=== PATIENT | female | born 1945 | race Asian ===

== ENCOUNTER 2021-11-27 16:05 | Inpatient (IN) | payer BC ==
[~2021-11-27] VITALS: Ht 157.5 cm; Wt 47.2 kg
[2021-11-27 16:14] VITALS: BP 134/70
--- NOTE | 2021-11-27 16:22 | NUR ---
PT BIB SNF C/O SOB PER SNF 77% ON RA. ON ARRIVAL PT 99% ON 8L MASK. PT BREATHING TACHYPNEIC WITH JVD, GCS 15. GENERALIZED EDEMA NOTED. PLACED ON BEDSIDE MONITOR. STACH ON MONITOR. IV NOTED TO LEFT FA #20GUAGE. PENDING ER MD SANABRIA.
--- NOTE | 2021-11-27 16:25 | NUR ---
DR KWAN AT BEDSIDE
[2021-11-27] MEDS ORDERED: ALBUTEROL SULFATE/IPRATROPIU 3 ML SOL IH ONE (16:30)
--- NOTE | 2021-11-27 17:21 | NUR ---
PT REFUSING BLOOD DRAW. PTS SISTER STATING "SHE HAD BLOOD DRAWN THIS MORNING, JUST USE THAT". DR KWAN MADE AWARE
[2021-11-27 17:48] LABS: BASOPHILS % (AUTO) 0.4 % (0.0-2.0); EOSINOPHILS # (AUTO) 0.1 K/uL (0-0.4); EOSINOPHILS % (AUTO) 1.7 % (0.0-4.0); HEMATOCRIT 25.5 % (36-48); HEMOGLOBIN 8.1 g/dL (12.0-16.0); LYMPHOCYTES # (AUTO) 0.5 K/uL (2.5-16.5); LYMPHOCYTES % (AUTO) 8.6 % (20.5-51.1); MEAN CORPUSCULAR HEMOGLOBIN 29 pg (27-31); MEAN CORPUSCULAR HGB CONC 32 g/dL (33-37); MEAN CORPUSCULAR VOLUME 90.4 fL (80-94); MONOCYTES # (AUTO) 0.4 K/uL (0.8-1.0); MONOCYTES % (AUTO) 7.3 % (1.7-9.3); NEUTROPHILS # (AUTO) 4.6 K/uL (1.8-7.7); PLATELET COUNT (AUTO) 286 K/uL (140-450); RED BLOOD CELL COUNT(AUTO) 2.83 MIL/uL (4.20-5.40); RED CELL DISTRIBUTION WIDTH 18.6 % (11.6-13.7); WHITE BLOOD COUNT (AUTO) 5.6 K/uL (4.8-10.8)
--- NOTE | 2021-11-27 17:52 | NUR ---
PT CONTINUING TO TAKE OFF FACE MASK. SISTER AT BEDSIDE TALKING WITH PT WITHOUT MASK ON. SPO2 DROPPED TO 79%. EDUCATED PATIENT AND SISTER TO KEEP MASK ON.
--- NOTE | 2021-11-27 17:55 | NUR ---
pt swabbed and walked to lab
[2021-11-27 18:07] LABS: ALBUMIN 2.5 g/dL (3.4-5.0); ANION GAP 2.1 (8-16); ASPARTATE AMINOTRANSFERASE 18 U/L (15-37); CHLORIDE 96 mmol/L (98-107); CREATININE 0.4 mg/dL (0.6-1.3); GLUCOSE 104 mg/dL (74-106); POTASSIUM 5.1 mmol/L (3.5-5.1); SODIUM SERUM 136 mmol/L (136-145); TOTAL BILIRUBIN 0.2 mg/dL (0.0-1.0); UREA NITROGEN, BLOOD 14 mg/dL (7-18)
[2021-11-27] MEDS ORDERED: FUROSEMIDE 40 MG/4 ML VIAL IVP ONE ×2 (20:05→22:34)
[2021-11-27] MEDS ORDERED: MORPHINE SULFATE 4 MG/ML SYR IVP ONE (20:10)
[2021-11-27] MEDS ORDERED: ASPIRIN 325 MG TAB PO ONE (20:30)
--- NOTE | 2021-11-27 20:30 | NUR ---
Perineal care provided, skin left clean and dry. skin intact. patient able to reposition self and assist with perineal care.
[2021-11-27] MEDS ORDERED: SYN.05 PO (20:51)
[2021-11-27] MEDS ORDERED: PANT40EC PO (20:51)
[2021-11-27] MEDS ORDERED: MULT-2171 PO (20:51)
--- NOTE | 2021-11-27 21:38 | NUR ---
Patient will be admitted to care of Dr. Del Valle. Admited to Telemetry. Will go to room 121A. Belongings list completed. Report to Lurdes AGUIRRE.
[2021-11-27] MEDS ORDERED: LOVENOX 1MG/KG Q12H SUBQ SCH (21:55)
[2021-11-27 22:00] VITALS: BP 107/58
[2021-11-27] MEDS ORDERED: MORPHINE SULFATE 2 MG/ML SYR IVP PRN (22:00)
--- NOTE | 2021-11-27 22:00 | NUR ---
PATIENT WAS TX FROM ER VIA GURNEY. TX TO BED WITH ASSIST OF 3 NURSES PT TOLERATED WELL. PT IS [place]. AAOX2. RESPIRATIONS ARE EQUAL AND UNLABORED ON 5L VIA NC SAT BETWEEN 92-94%. CRACKLES ON THIAGO BASES. SKIN IS WARM, DRY AND INTACT. IV ON L FA 20G SL. SEVERE JVD THIAGO. GEN EDEMA PITTING +3. CAP REFILL <3, PULSES INTACT. MRSA SWAB OBTAINED AND SENT TO LAB, VSS. ORIENTED PT TO ROOM, STAFF, VISITING HOURS AND CALL LIGHT. EDUCATED PT ON FLUID RESTRICTION PT YELLED FOR WATER. WATER GIVEN AND PT VERBALIZED UNDERSTANDING REGARDING FLUID RESTRICTION AND SIGN PLACED ABOVE BED. PT IS INCONTINENT OF B/B. BLE ELEVATED ON PILLOWS. CALL LIGHT IS WITHIN REACH. WILL CONTINUE TO MONITOR.
[2021-11-27] MEDS ORDERED: ENOXAPARIN 60 MG/0.6 ML SYR SUBQ SCH (23:00)
--- NOTE | 2021-11-27 23:13 | NUR ---
TALKED TO PT'S SISTER PAUL GARRISON FOR TELEPHONE CONSENT FOR CT ANGIO OF CHEST. PAUL REFUSED TO GIVE CONSENT STATES, "MY SISTER CANNOT ENDURE ANY PROCEDURE SHE WILL HAVE A STROKE OR ." EXPLAIN TO NURSE THE REASON AND PROS AND CONS OF CT ANGIO PER SISTER WANTS TO TALK TO MD BEFORE CONSENT.
[2021-11-27 23:37] LABS: CHOL/HDL RATIO 2.1 (1-4.5)
[2021-11-28] VITALS: BP 100/54
--- NOTE | 2021-11-28 | NUR ---
VSS. PT WAS CLEANED AND REPOSITION FOR COMFORT. ALL NEEDS MET. CALL LIGHT IS WITHIN REACH. WILL CONTINUE TO MONITOR.
--- NOTE | 2021-11-28 02:40 | NUR ---
ROUNDS MADE. PT RESTING IN BED WITH EYES CLOSED APPEARS TO BE ASLEEP. CHEST RISE AND FALL NOTED. CALL LIGHT IS WITHIN REACH.
[2021-11-28 04:00] VITALS: BP 101/55
[2021-11-28] MEDS: LEVOTHYROXINE 0.05 MG TAB PO SCH (05:32)
--- NOTE | 2021-11-28 05:32 | NUR ---
PATIENT WAS CLEANED AND REPOSITION. PURE WICK APPLIED. EASTON MEDICATIONS GIVEN. ALL NEEDS MET. WILL CONTINUE TO MONITOR.
[2021-11-28 06:01] LABS: BASOPHILS % (AUTO) 0.7 % (0.0-2.0); EOSINOPHILS # (AUTO) 0.1 K/uL (0-0.4); EOSINOPHILS % (AUTO) 2.3 % (0.0-4.0); HEMATOCRIT 25.6 % (36-48); HEMOGLOBIN 8.3 g/dL (12.0-16.0); LYMPHOCYTES # (AUTO) 0.5 K/uL (2.5-16.5); LYMPHOCYTES % (AUTO) 10.8 % (20.5-51.1); MEAN CORPUSCULAR HEMOGLOBIN 29 pg (27-31); MEAN CORPUSCULAR HGB CONC 32 g/dL (33-37); MEAN CORPUSCULAR VOLUME 89.4 fL (80-94); MONOCYTES # (AUTO) 0.4 K/uL (0.8-1.0); NEUTROPHILS # (AUTO) 3.5 K/uL (1.8-7.7); NEUTROPHILS % (AUTO) 77.2 % (42.2-75.2); PLATELET COUNT (AUTO) 291 K/uL (140-450); RED BLOOD CELL COUNT(AUTO) 2.87 MIL/uL (4.20-5.40); RED CELL DISTRIBUTION WIDTH 18.3 % (11.6-13.7); WHITE BLOOD COUNT (AUTO) 4.5 K/uL (4.8-10.8)
[2021-11-28 06:16] LABS: ALBUMIN 2.3 g/dL (3.4-5.0); ANION GAP 3.3 (8-16); ASPARTATE AMINOTRANSFERASE 14 U/L (15-37); CHLORIDE 94 mmol/L (98-107); CREATININE 0.3 mg/dL (0.6-1.3); GLUCOSE 90 mg/dL (74-106); MAGNESIUM 2.3 mg/dL (1.8-2.4); PHOSPHORUS 4.5 mg/dL (2.5-4.9); SODIUM SERUM 138 mmol/L (136-145); TOTAL BILIRUBIN 0.2 mg/dL (0.0-1.0); UREA NITROGEN, BLOOD 15 mg/dL (7-18)
[2021-11-28 06:29] LABS: CARBON DIOXIDE 44.7 mmol/L (21-32)
--- NOTE | 2021-11-28 07:06 | NUR ---
PATIENT HAS BEEN SCREENED AND CATEGORIZED MODERATE NUTRITION RISK. PATIENT WILL BE SEEN WITHIN 3-5 DAYS OF ADMISSION. 11/30/21-12/02/21 JULIA VIDAL MS, RDN
--- NOTE | 2021-11-28 07:16 | NUR ---
GAVE BEDSIDE REPORT TO DAY RN. PT ENDORSED IN STABLE CONDITION. WILL CONTINUE TO MONITOR.
--- NOTE | 2021-11-28 07:50 | NUR ---
PT WAS FOUND ON 5L/MIN NC, WAS SATING 90%. PT PLACED ON 6L/MIN NC, SATING 92%. WILL CONTINUE TO MONITOR.
[2021-11-28 08:00] VITALS: BP 112/61
--- NOTE | 2021-11-28 08:00 | NUR ---
OPENING NOTE PT IS VERY [place] IN BOTH EARS. PT ALSO SAYS SHE CAN'T NOT SEE. AAOX1 AND WITH MOMENTS OF CONFUSION. PUSHES THE CALL BUTTON REQUEST SOMETHING, THEN PUSHES THE CALL BUTTON AGAIN TO REQUEST THE SAME THING, . RESPIRATIONS ARE EQUAL AND UNLABORED ON 5L VIA NC SAT BETWEEN 92%. RESP INFORMED TO CHECK PT FOR POSSIBLE INCREASE IN OXYGEN. DEVICE. PT HAS CRACKLES IN BILAT LOWER BASES. SKIN IS WARM, DRY AND INTACT. IV ON L FA 20G SL. SEVERE JVD BILAT. GEN EDEMA PITTING +3. CAP REFILL <3, VSS. PT EDUCATED PT ON FLUID RESTRICTION PT YELLED FOR WATER. WATER GIVEN AND PT VERBALIZED UNDERSTANDING REGARDING FLUID RESTRICTION AND SIGN PLACED ABOVE BED. PT IS INCONTINENT OF B/B. BLE ELEVATED ON PILLOWS. CALL LIGHT IS WITHIN REACH. ALL SAFETY MEASURES IN PLACE.
[2021-11-28] MEDS: ASPIRIN 81 MG TAB.CHEW PO SCH (08:25)
[2021-11-28] MEDS: PANTOPRAZOLE 40 MG TABEC PO SCH (08:28)
[2021-11-28] MEDS: lisinopriL 5 MG TAB PO SCH (08:29)
[2021-11-28] MEDS: HYDROcodone/APAP 5/325 MG 1 TAB TAB PO PRN ×2 (08:30→23:45)
--- NOTE | 2021-11-28 08:30 | NUR ---
SISTER CAME TO VISIT SISTER GRABBED MY HAND I WAS GIVING MEDICATION AND TOLD ME NOT TO GIVE TO PT. 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
--- NOTE | 2021-11-28 08:45 | NUR ---
SISTER REQUEST PT NEEDS DOUBLE PORTION OF MEATS EXAMINED THAT IS A DOCTOR ORDER AND WE WILL HAVE TO TLAK TO HIM
[2021-11-28] MEDS ORDERED: METOPROLOL 25 MG TAB PO SCH (09:00)
[2021-11-28] MEDS ORDERED: FUROSEMIDE 40 MG/4 ML VIAL IVP SCH (09:00)
[2021-11-28] MEDS ORDERED: ATORVASTATIN 20 MG TAB PO SCH (09:00)
--- NOTE | 2021-11-28 09:00 | NUR ---
OXYGEN PT SAT'S REMAIN LOW 90'S AND PT IS A MOUTH BREATHER. WAS PLACED ON A SIMPLE MASK
--- NOTE | 2021-11-28 09:05 | NUR ---
SISTER CALLED NURSE PT STOMACH IS HURTING AND THE SISTER INSIST IT IS THE ULCER AND THAT THE PT IS BLEEDING INSIDE. EXPLAINED BLOOD WORK IS GOOD AND THE DR WILL EVAL HER WHEN HE COMES
--- NOTE | 2021-11-28 09:30 | NUR ---
SISTER STOP PT MEDICATIONS AT HOME SISTER SAY THE LASIX IS KILLING TH PT SO SHE HAS NOT BEEN TAKING IT EVERYDAY. SISTER SAY'S WHEN PT IS NOT ON THE LASIX SHE CAN DRIVE AND HEAR AND SEE PERFECTLY. EXPLINED AGAIN I MUST FOLLOW ALL DOCTORS ORDER AND GIVE THE MEDICATIONS THAT HAVE BEEN ORDERED
--- NOTE | 2021-11-28 10:09 | NUR ---
(11/28/21) RD INITIAL ASSESSMENT COMPLETED PLEASE REFER TO NUTRITION ASSESSMENT UNDER CARE ACTIVITY FOR ESTIMATED NUTRITIONAL NEEDS. RD RECOMMENDATIONS: 1. CONSIDER SWALLOW EVAL FOR APPROPRIATE DIET TEXTURES 2. CONSIDER CARDIAC DIET IN TEXTURES/CONSISTENCIES PER HEEL EDGE INKER MACHINE RECS. 3. CONSULT RDN PRN. 4. RD WILL F/U 2-3 DAYS; HIGH RISK. JULIA VIDAL, MS, RDN
[2021-11-28] MEDS: ENOXAPARIN 40 MG/0.4 ML SYR SUBQ SCH (11:00)
--- NOTE | 2021-11-28 11:30 | NUR ---
SISTER SPOKE WITH MD SISTER AGREED TO LET MD COMPLETE ALL THE TEST NEEDED AND THAT SHE WOULD FOLLOW THE MD DIRECTIONS MD EXPRESSED IMPORTANCE OF THE CT WITH CONTRAST SISTER AGREED, ONCE MD LEFT SISTER REFUSED AGAIN AND THEREFORE PT SAID NO TO TEST
--- NOTE | 2021-11-28 11:35 | NUR ---
PATIENT WAS FOUND WITH SIMPLE MASK OFF HER FACE, WAS SATING 86%. PATIENT STATED SHE WANTED TO EAT. PLACED PATIENT ON 10L OXYMIZER AND WAS SATING 96%. TITRATED PATIENT DOWN TO 9L 95% AND WAS COMFORTABLE WITH NO SIGNS OF DISTRESS. WILL CONTINUE TO MONITOR.
--- NOTE | 2021-11-28 11:40 | NUR ---
SISTER REMOVED MASK RT FOUND PT WITH SIMPLE MASK OFF HER FACE, WAS SATING 86%. PATIENT STATED SHE WANTED TO EAT. THIS NURSE ASKED SISTER WHY SHE TOOK OFF MASK WHEN PT IS HAVIGN A HARD TIME BREATHING SHE STATED "SHE WILL BREATH BETTER IF SHE IS NOT HUNGRY" RT PLACED PATIENT ON 10L OXYMIZER AND WAS SATING 96%. TITRATED PATIENT DOWN TO 9L 95% AND WAS COMFORTABLE WITH NO SIGNS OF DISTRESS.THIS NURSE SPOKE WITH PT TO EXPLAIN IMPORTANCE OF NOT REMOVING OXYGEN.
[2021-11-28 12:00] VITALS: BP 112/61
--- NOTE | 2021-11-28 13:00 | NUR ---
SISTER REFUSED TOLD PT NOT TO HAVE CT WITH CONTRAST IT;S NOT GOOD FOR HER SO PT REFUSED ALSO.
[2021-11-28 16:00] VITALS: BP 123/71
[2021-11-28] MEDS ORDERED: FUROSEMIDE 20 MG/2 ML VIAL IVP SCH (17:00)
[2021-11-28 20:00] VITALS: BP 92/52
--- NOTE | 2021-11-28 20:30 | NUR ---
PT FOUND ON 9LOXY SPO2 90% WILL CONTINUE TO MONITOR
--- NOTE | 2021-11-28 22:40 | NUR ---
PT STATED THEY WERE SOB SPO2 WAS 87% AND O2 WAS TITRATED TO 12L (OXY) WITH SPO2 92% 5 MIN POST TITRATION WILL CONTINUE TO MONITOR
[2021-11-29] VITALS: BP 120/60
[2021-11-29 04:00] VITALS: BP 109/55
--- NOTE | 2021-11-29 04:34 | NUR ---
PT SLEEPING COMFORTABLY ON 11L OXY W/ NO DISTRESS NOTED AT THIS TIME WILL CONTINUE TO MONITOR
[2021-11-29] MEDS: LEVOTHYROXINE 0.05 MG TAB PO SCH (06:04)
[2021-11-29 07:53] LABS: BASOPHILS % (AUTO) 0.6 % (0.0-2.0); EOSINOPHILS # (AUTO) 0.1 K/uL (0-0.4); EOSINOPHILS % (AUTO) 2.3 % (0.0-4.0); HEMATOCRIT 28.4 % (36-48); HEMOGLOBIN 9.2 g/dL (12.0-16.0); LYMPHOCYTES # (AUTO) 0.4 K/uL (2.5-16.5); LYMPHOCYTES % (AUTO) 8.6 % (20.5-51.1); MEAN CORPUSCULAR HEMOGLOBIN 29 pg (27-31); MEAN CORPUSCULAR HGB CONC 32 g/dL (33-37); MEAN CORPUSCULAR VOLUME 89.8 fL (80-94); MONOCYTES # (AUTO) 0.4 K/uL (0.8-1.0); MONOCYTES % (AUTO) 9.3 % (1.7-9.3); NEUTROPHILS # (AUTO) 3.8 K/uL (1.8-7.7); NEUTROPHILS % (AUTO) 79.2 % (42.2-75.2); PLATELET COUNT (AUTO) 311 K/uL (140-450); RED BLOOD CELL COUNT(AUTO) 3.16 MIL/uL (4.20-5.40); RED CELL DISTRIBUTION WIDTH 18.8 % (11.6-13.7); WHITE BLOOD COUNT (AUTO) 4.8 K/uL (4.8-10.8)
[2021-11-29 08:00] VITALS: BP 106/56
[2021-11-29 08:07] LABS: FOLIC ACID 17.8 ng/mL (>3.0)
[2021-11-29 08:30] LABS: CHLORIDE 91 mmol/L (98-107); CREATININE 0.4 mg/dL (0.6-1.3); GLUCOSE 90 mg/dL (74-106); POTASSIUM 3.4 mmol/L (3.5-5.1); SODIUM SERUM 135 mmol/L (136-145); UREA NITROGEN, BLOOD 15 mg/dL (7-18)
[2021-11-29 08:39] LABS: MAGNESIUM 2.5 mg/dL (1.8-2.4)
--- NOTE | 2021-11-29 08:43 | NUR ---
RECEIVE ENDORSEMENT FROM PM SHIFT NURSE THAT PATIENT IS ON 10 LITER OXYGEN VIA OXMIER, PIV L. FOREARM 20G SALINE LOCK. WILL CONTINUE TO MONITOR.
[2021-11-29 08:58] LABS: CARBON DIOXIDE 50.4 mmol/L (21-32)
[2021-11-29] MEDS ORDERED: acetaZOLAMIDE sodium 500 MG VIAL IVP ONE (09:40)
[2021-11-29] MEDS: PANTOPRAZOLE 40 MG TABEC PO SCH (09:48)
[2021-11-29] MEDS: ASPIRIN 81 MG TAB.CHEW PO SCH (09:51)
[2021-11-29] MEDS: lisinopriL 5 MG TAB PO SCH (09:51)
[2021-11-29] MEDS: FUROSEMIDE 20 MG/2 ML VIAL IVP SCH (09:53)
[2021-11-29] MEDS: ENOXAPARIN 40 MG/0.4 ML SYR SUBQ SCH (09:56)
[2021-11-29 12:00] VITALS: BP 108/61
[2021-11-29 16:00] VITALS: BP 128/73
[2021-11-29] MEDS: ALBUTEROL SULFATE/IPRATROPIU 3 ML SOL IH PRN (19:37)
--- NOTE | 2021-11-29 19:53 | NUR ---
GET THE REPORT FROM MORNING NURSE NITESH , PATIENT IS LYING ON BED, PATIENT IS ALERT ORIENTED X 1, CALL LIGHT IS WITHIN THE REACH, WILL CONTINUE TO MONITOR PATIENT
--- NOTE | 2021-11-29 19:57 | NUR ---
ENDORSE PT TO PM SHIFT NURSE THAT PATIENT IS ON 10 LITER OXYGEN VIA OXIMIER, PIV L. FOREARM & GLENN 20G SALINE LOCK
[2021-11-29 20:00] VITALS: BP 105/68
--- NOTE | 2021-11-29 20:30 | NUR ---
PATIENT IS LYING ON BED, VITAL SIGN IS WITHIN THE NORMAL RANGE, NO ANY COMPLAIN OF PAIN OR SHORTNESS OF BREATH AT THIS TIME ,CALL LIGHT IS WITHIN THE REACH,WILL CONTINUE TO MONITOR PATIENT.
[2021-11-30] VITALS: BP 112/61
--- NOTE | 2021-11-30 00:48 | NUR ---
VITAL SIGN IS WITHIN THE NORMAL RANGE, NO ANY COMPLAIN OF PAIN , CALL LIGHT IS WITHIN THE REACH, WILL CONTINUE TO MONITOR PATIENT
[2021-11-30 04:00] VITALS: BP 105/57
[2021-11-30] MEDS: LEVOTHYROXINE 0.05 MG TAB PO SCH (06:07)
--- NOTE | 2021-11-30 07:28 | NUR ---
RECEIVE ENDORSEMENT FROM PM SHIFT NURSE THAT PATIENT IS ON 10 LITER OXYGEN VIA OXYMIER, PIV L. FOREARM & GLENN 20G SALINE LOCK. WILL CONTINUE TO MONITOR
[2021-11-30 08:00] VITALS: BP 110/51
[2021-11-30] MEDS: ASPIRIN 81 MG TAB.CHEW PO SCH (09:11)
[2021-11-30] MEDS: ACETAMINOPHEN 325 MG TAB PO PRN (09:11)
[2021-11-30] MEDS: PANTOPRAZOLE 40 MG TABEC PO SCH (09:11)
[2021-11-30] MEDS: lisinopriL 5 MG TAB PO SCH (09:11)
[2021-11-30 09:57] LABS: ANION GAP 5.6 (8-16); CARBON DIOXIDE 36.9 mmol/L (21-32); CHLORIDE 95 mmol/L (98-107); CREATININE 0.5 mg/dL (0.6-1.3); GLUCOSE 183 mg/dL (74-106); POTASSIUM 3.5 mmol/L (3.5-5.1); SODIUM SERUM 134 mmol/L (136-145); UREA NITROGEN, BLOOD 14 mg/dL (7-18)
[2021-11-30 10:02] LABS: BASOPHILS % (AUTO) 0.5 % (0.0-2.0); EOSINOPHILS # (AUTO) 0.1 K/uL (0-0.4); EOSINOPHILS % (AUTO) 1.1 % (0.0-4.0); HEMATOCRIT 28.3 % (36-48); HEMOGLOBIN 9.1 g/dL (12.0-16.0); LYMPHOCYTES # (AUTO) 0.4 K/uL (2.5-16.5); LYMPHOCYTES % (AUTO) 7.7 % (20.5-51.1); MEAN CORPUSCULAR HEMOGLOBIN 29 pg (27-31); MEAN CORPUSCULAR HGB CONC 32 g/dL (33-37); MEAN CORPUSCULAR VOLUME 90.2 fL (80-94); MONOCYTES # (AUTO) 0.4 K/uL (0.8-1.0); MONOCYTES % (AUTO) 7.6 % (1.7-9.3); NEUTROPHILS # (AUTO) 3.9 K/uL (1.8-7.7); NEUTROPHILS % (AUTO) 83.1 % (42.2-75.2); PLATELET COUNT (AUTO) 294 K/uL (140-450); RED BLOOD CELL COUNT(AUTO) 3.14 MIL/uL (4.20-5.40); RED CELL DISTRIBUTION WIDTH 18.9 % (11.6-13.7); WHITE BLOOD COUNT (AUTO) 4.7 K/uL (4.8-10.8)
--- NOTE | 2021-11-30 10:58 | NUR ---
DC PLANNING: THE PATIENT CAME FROM THE [facility] S[facility] OF [facility], HAS BEEN THERE SINCE 11/25 PER GILMA AT THE FACILITY. CM SPOKE WITH THE PATIENTS SISTER PAUL AT BEDSIDE WHILE P.T. WORKED WITH THE PATIENT. THEY ATTEMPTED TO GET THE PATIENT TO STAND THREE TIMES, PATIENT WAS NOT ABLE TO TOLERATE. THE PATIENT WAS SENT TO [facility] FROM [facility]. SHE HAS A FWW AND O2 CONCENTRATOR AT HOME. HER SISTER PAUL STATES THAT HER WALKER IS OLD AND THAT IS THE REASON THAT PATIENT FALLS, NEW FWW HAS BEEN DENIED BY MEDICARE BECAUSE SHE DOESN'T QUALIFY THE WALKER IS LESS THAN FIVE YEARS OLD. HER SISTER PAUL IS ALSO ASKING FOR A PORTABLE O2 THAT THE PATIENT CAN CARRY IN A BACK PACK, CM ENDORSED THAT IT WILL BE SUBMITTED TO SEE IF MEDICARE WILL COVER THIS. PAUL STATES THAT SHE WANTS THE PATIENT HOME, HAS NO OTHER SUPPORT OR HELP TO CARE FOR THE PATIENT. CM POINTED OUT THAT THE PATIENT IS NOT ABLE TO STAND, PAUL STATES SHE WILL BE STRONG ENOUGH TO DO THIS WHEN SHE LEAVES THE HOSPITAL. PAUL WOULD ALSO LIKE A RAISED TOILET SEAT FOR THE HOME. ETHAN ENDORSED TO THE ATTENDING MD THAT THE SISTER IS STATING SHE IS TAKING THE PATIENT HOME IN SPITE OF P.T. AND CM DISCUSSING LACK OF SAFETY IF PATIENT GOES HOME. CM WILL FOLLOW. Addendum: 12/22/21 at 1743 by Renu Corbin RN DC PLANNING: PATIENT SISTER INSIST THAT SHE DOESN'T HAVE ANY OXYGEN TANK AT HOME. CALLED [facility] EXPLAIN THE SITUATION AND [facility] STATED WILL REVIEW THE REQUEST AND IF IT GETS APPROVE WILL DELIVER ONE AT THE HOSPITAL. DC PLAN TO GO HOME WITH OXYGEN AWAITING FOR THE PORTABLE OXYGEN. CM TO FOLLOW
--- NOTE | 2021-11-30 11:00 | NUR ---
DR. PADRON SAW PATIENT AND HER SISTER, PAUL ([phone]), EVALUATE PATIENT'S CURRENT CONDITION. ORDERED CBC, BMP, PT EVALUATION, AND MARINE MAMMAL TRAINER INTERVIEW FOR F/U. MARINE MAMMAL TRAINER, JEAN-CLAUDE, MET PATIENT AND HER SISTER; DISCUSSING HEALTHCARE SERVICE AFTER DISCHARGE. PATIENT CURRENT ON 8 LITER OXYGEN VIA OXYMIER, UNABLE SELF CARE, AND ELDER SISTER IS GOING TO BE CAREGIVER AFTER DISCHARGE HOME, WHICH WILL BE OBSTACLES. WILL F/U
[2021-11-30 12:00] VITALS: BP 97/49
[2021-11-30 16:00] VITALS: BP 110/50
--- NOTE | 2021-11-30 16:03 | NUR ---
11/30/21 RD FOLLOW UP COMPLETED PLEASE REFER TO NUTRITION ASSESSMENT UNDER CARE ACTIVITY FOR ESTIMATED NUTRITIONAL NEEDS. 1. RECOMMEND SOFT/MECHANICAL SOFT DIET WITH DOUBLE PROTEIN 2. RECOMMEND HEALTHSHAKES TID FOR NUTRITION SUPPORT 3. MONITOR GI SYMPTOMS AND BLOOD GLUCOSE LEVELS 4. RD WILL F/U 3-5 DAYS; MODERATE RISK. SAMUEL MODI RD
--- NOTE | 2021-11-30 19:37 | NUR ---
ENDORSE PT TO PM SHIFT NURSE THAT PATIENT IS ON 10 LITER OXYGEN VIA OXYMIER, PIV L. FOREARM & GLENN 20G SALINE LOCK
[2021-11-30 20:00] VITALS: BP 103/54
--- NOTE | 2021-11-30 20:00 | NUR ---
RECEIVE IN BED NO VOICED COMPLAINTS FAMILY IS AT BEDSIDE IS ON 10L OXYGEN VIA OXIMIZER REPOSITIONED IN BED
[2021-11-30] MEDS: HYDROcodone/APAP 5/325 MG 1 TAB TAB PO PRN (22:05)
[2021-12-01] VITALS (15 sets, daily range): BP systolic 80–176; BP diastolic 37–86
[2021-12-01] MEDS: LEVOTHYROXINE 0.05 MG TAB PO SCH (06:30)
--- NOTE | 2021-12-01 07:30 | NUR ---
RECEIVED REPORT FROM MANAGER OF DRILLING NURSE FOR CONTINUITY OF CARE, POC DISCUSSED. PT IS ASLEEP IN BED ON 10 L OXYMIZER, SATING AT 92%. PT HAS A LEFT UPPER ARM 18G, AND A RIGHT AC 18 G. BOTH SALINE LOCK, DRY AND INTACT. PT HAS A PUREE WICK, CONNECTED TO SUCTION. CLEAR MICHAEL TO YELLOW URINE, 300 CC. ON TELE MONITOR SHOWING SINUS RHYTHM. ALL SAFETY MEASURES IN PLACE, CALL LIGHT WITHIN REACH. WILL CONTINUE TO MONITOR.
[2021-12-01] MEDS ORDERED: CRUSHER, PILL MC ONE (08:50)
[2021-12-01] MEDS: ENOXAPARIN 40 MG/0.4 ML SYR SUBQ SCH (08:53)
[2021-12-01] MEDS: ASPIRIN 81 MG TAB.CHEW PO SCH (08:53)
[2021-12-01] MEDS: lisinopriL 5 MG TAB PO SCH ×2 (08:53→09:00)
[2021-12-01] MEDS: PANTOPRAZOLE 40 MG TABEC PO SCH (08:53)
[2021-12-01] MEDS: FUROSEMIDE 20 MG/2 ML VIAL IVP SCH ×3 (08:53→09:47)
--- NOTE | 2021-12-01 09:00 | NUR ---
PT IS ALERT AND ORIENTED X1, SISTER AT BEDSIDE. SITTING UP IN CHAIR AT BEDSIDE EATING BREAKFAST. EASTON LISINOPRIL REFUSED, EXPLAINED THE IMPORTANCE OF MAINTAINCE DOSAGE. PT SISTER REFUSED. IV LASIX ALSO REFUSED. EDUCATED ON IMPORTANCE OF REMOVING FLUIDS, VERBALIZED THEY UNDERSTOOD BUT DOES NOT WANT IT ADMINISTERED. IV PATENT AND INTACT. JUICE AND OTHER NEEDS PROVIDED. ALL QUESTIONS ANSWERED. ALL SAFETY MEASURES IN PLACE, CALL LIGHT WITHIN REACH. WILL CONTINUE TO MONITOR.
--- NOTE | 2021-12-01 10:00 | NUR ---
PT SISTER STATES SHE NOW WANTS ALL THE MEDICATION THAT WAS REFUSED EXCEPT THE LISINOPRIL. MEDICATION ADMINISTERED. PT ASSISTED BACK IN BED, FULL TRANSFER AND ASSISTANCE REQUIRED. EDUCATED ON INABILITY TO AMBULATE AND REQUIRING TO STAY IN BED. NEW PUREE WICK CONNECTED, NEW DIAPER PLACED. ALL SAFETY MEASURES IN PLACE, CALL LIGHT WITHIN REACH. WILL CONTINUE TO MONITOR.
--- NOTE | 2021-12-01 10:59 | NUR ---
PHYSICAL THERAPY CO-SIGN The Physical Therapy Progress Notes documented by Ticket Chopper Assembler have been reviewed. Reviewed/Co-Signed by: Lizzy Calles Documentation Done by: CHANELL STOCK PTA Addendum: 12/01/21 at 1059 by Lizzy Calles PT Amended: Links added.
--- NOTE | 2021-12-01 11:27 | NUR ---
PT CLEANED, BM NOTED. ALL SAFETY MEASURES IN PLACE, CALL LIGHT WITHIN REACH. WILL CONTINUE TO MONITOR.
[2021-12-01] MEDS: ONDANSETRON 4 MG/2 ML VIAL IVP PRN (12:12)
[2021-12-01] MEDS: ACETAMINOPHEN 325 MG TAB PO PRN (12:13)
--- NOTE | 2021-12-01 12:42 | NUR ---
PRN TYLENOL AND ZOFRAN ADMINISTERED PER MD ORDER FOR ELEVATED TEMP AND NAUSEA. PT ASSISTED TO CHAIR FOR LUNCH. ALL NEEDS ARE CURRENTLY BEING MET REPORTED BY . ALL SAFETY MEASURES IN PLACE, CALL LIGHT WITHIN REACH. WILL CONTINUE TO MONITOR.
--- NOTE | 2021-12-01 13:20 | NUR ---
PT HAS BEEN CLEANED UP, 1 EMESIS AND 1 LARGE BM NOTED. NEW PUREE WICK AND DIAPER PLACED. PT PLACED BACK INTO BED. SISTER AT BEDSIDE. ALL SAFETY MEASURES IN PLACE, CALL LIGHT WITHIN REACH. WILL CONTINUE TO MONITOR.
--- NOTE | 2021-12-01 13:45 | NUR ---
PT SISTER REPORTS PT HAVING EMESIS, NEW GOWN PROVIDED. NOTIFIED MD REGARDING CONTINUED EMESIS. PENDING NEW ORDERS.
[2021-12-01] MEDS: ALBUTEROL SULFATE/IPRATROPIU 3 ML SOL IH PRN (14:58)
--- NOTE | 2021-12-01 14:58 | NUR ---
STAT CHEST XRAY PLACED, TORB, CALLED RADIOLOGY TO INFORM THEM OF THE STAT ORDER, STATED THEY ARE IN RD BUT WILL BE RIGHT TO THE PTS ROOM.
--- NOTE | 2021-12-01 15:01 | NUR ---
CALLED DR. CARLIE BARFIELD AT [facility] [phone] TO REVIEW ABG SAMPLE REPORT JAZMINE/EXCHANGE TO PAGE FOREMENTIONED PATIENT INFORMATION AND CALL BACK NUMBER GIVEN
--- NOTE | 2021-12-01 15:03 | NUR ---
CALL BACK FROM DR. CARLIE BARFIELD REVIEWED ABG SAMPLE REPORT, PATIENT LOC, PATIENT EMESIS WITH POSSIBLE ASPIRATION; STAT CXR ORDERED TORBO: TRANSFER TO ICU STAT; INTUBATE BT ERMD
--- NOTE | 2021-12-01 15:08 | NUR ---
NEW ORDER FOR PT TO BE TRANSFERRED TO ICU STAT
--- NOTE | 2021-12-01 15:20 | NUR ---
PATIENT TRANSFERRED TO ICU-1 CONTINUED ON SUPPLEMENTAL OXYGEN VIA E-TANK AT 15 LPM VIA NON REBREATHER TOLERATED TRANSFER WELL WITHOUT ADVERSE REACTIONS NOTED SATURATION 92%-93% HR 87
--- NOTE | 2021-12-01 15:20 | NUR ---
PT WAS TRANSFERRED TO THE ICU WITH RT AT BEDSIDE. FULL REPORT GIVEN TO RENETTA. PT OUTPUT FROM [facility] WAS 800CC. ALL BELONGINGS WITH SISTER, SISTER TAKEN TO WAITING ROOM AND UPDATE PROVIDED.
--- NOTE | 2021-12-01 15:30 | NUR ---
RECEIVED REPORT FROM JAMIE. RECEIVED PT BREATHING LABORED WITH LOW O2 SAT. RIGHT NARE NOTED WITH SMALL AMOUNT OF BLOOD. PERIPHERAL IV 20 GAUGE ON RIGHT UPPER ARM INTACT AND PATENT. PERIPHERAL IV 20 GAUGE ON LEFT FOREARM INTACT AND PATENT. RT AT BEDSIDE. ER DOCTOR CALLED TO BEDSIDE.
--- NOTE | 2021-12-01 15:40 | NUR ---
ER DOCTOR ASSESSED PT. 1544: MEDS GIVEN MD ORDER 1545: PT INTUBATED. ET TUBE 24' AT LIP.
--- NOTE | 2021-12-01 15:43 | NUR ---
DR. SAMMY ARENAS AT BEDSIDE USING A GLIDESCOPE PATIENT SUCCESSFULLY INTUBATED WITH AN ENDOTRACHEAL TUBE #7.5 SECURED WITH AN ANCHOR FAST AT 24cm TEETH/GUM LINE VIA 10 ML SYRINGE CUFF INFLATED WITH 8ml AIR INTUBATION CONFIRMED; ETCO2 YELLOW; AUSCULTATION BY ERMD TO BILATERAL LUNG FIELD AND ABDOMINAL REGION; SATURATION ASCENDING FROM 78% TO 100%; CXR TO FOLLOW
--- NOTE | 2021-12-01 16:00 | NUR ---
NG-TUBE PLACED ON LEFT NARE. PT TOLERATED WELL.
--- NOTE | 2021-12-01 16:08 | NUR ---
CHEST XRAY DONE AT BEDSIDE.
--- NOTE | 2021-12-01 16:15 | NUR ---
INFORMED DR. PADRON REGARDING PT TRANSFER TO ICU AND INTUBATED. RECEIVED NEW ORDERS.
[2021-12-01] MEDS: PROPOFOL 1000 MG/100 ML PREMIX 100 ML IV PRN (17:14)
--- NOTE | 2021-12-01 17:20 | NUR ---
CALL BACK FROM DR. CARLIE BARFIELD REVIEWED INTUBATION PROCEDURE WITH DR. GODINEZ; INTUBATION CONFIRMATION CXR IMPRESSION 12/01/21 AT 1536 MST 121-A; VENTILATOR SETINGS; ABG SAMPLE REPORT TORBO: CHANGE MECHANICAL Vt TO 450ml; REYNALDO PELAEZ Q4; ABG TOMORROW 12/02/2021 AT 8 AM
--- NOTE | 2021-12-01 17:30 | NUR ---
RECEIVED PHONE CALL FROM RADIOLOGIST DOCTOR. PER MD, ET TUBE TOO LOW. IN RIGHT MAIN BRONCHUS AND NEEDS TO BE PULLED BACK 2-3CM. RT DEBORAH MADE AWARE.
--- NOTE | 2021-12-01 17:40 | NUR ---
RT AT BEDSIDE PULLING BACK ET TUBE. ET TUBE 22' AT LIP.
--- NOTE | 2021-12-01 19:15 | NUR ---
ENDORSED TO INGOT STRIPPER NURSE FOR CONTINUITY OF CARE.
--- NOTE | 2021-12-01 19:20 | NUR ---
RECEIVED BEDSIDE REPORT FROM DAY RN. PT IS AWAKE SHAKING AND NODDING HEAD TO SISTER. PT DE SAT AT 70-74% PAGED RT. ETT TO VENT. ETT AT 22 VENT SETTINGS AC/PRVC 100% 450 20 +5 SAT 72% RR 32 HR 114. WILL INCREASE PROPOFOL INFUSING AT 5MCG/KG/MIN AT THIS TIME ON RAC 20G. IV ON LAC 20 TKO. SKIN IS WARM, DRY AND INTACT. INCONTINENT TO B/B. PT WAS JUST INTUBATED TODAY ON THIAGO SOFT WRIST RESTRAINTS. NGT ON L NOSTRIL NOTED BRIGHT RED BLOOD CLEANED AND DRIED FROM L NOSTRIL. SAFETY MEASURES ARE IN PLACE.
--- NOTE | 2021-12-01 19:22 | NUR ---
PROPOFOL INCREASED TO 10MCG/KG/MIN WILL CONTINUE TO MONITOR.
--- NOTE | 2021-12-01 19:30 | NUR ---
PROPOFOL INCREASED TO 15 MCG/MIN. PT STILL FIGHTING VENT DESAT 73% HR 110-115. RT AT BEDSIDE. WILL CONTINUE TO MONITOR.
--- NOTE | 2021-12-01 20:36 | NUR ---
PT IRRITABLE AND FIGHTING VENT SPO2 WAS LOW 70s RN TITRATED PROP AND SPO2 SLOWLY CLIMBED TO 90% PT DESAT ONCE MORE PEEP WAS TITRATED TO 6 AND ONCE MORE TO 8 SPO2 CURRENTLY 96% AND STEADILY/SLOWLY CLIMBING WILL CONTINUE TO MONITOR AND TITRATE TOLERATED
--- NOTE | 2021-12-01 20:37 | NUR ---
PAGED DR PADRON FOR ORDERS FOR CENTRAL LINE AND BP SUPPORT BP IN 90S AND PROPOFOL NEEDS TO BE TITRATED UP D/T PT FIGHTING VENT SAT IN 70S RT AT BEDSIDE. NEW ORDERS FOR CENTRAL LINE AND LEVO STANDARD DOSE.
[2021-12-01] MEDS ORDERED: NOREPINEPHRINE 4 MG/4 ML VIAL IV ONE (20:43)
[2021-12-01] MEDS: NOREPINEPHRINE 4 MG in DEXTROSE 5% 250 ML IV PRN (21:00)
--- NOTE | 2021-12-01 21:00 | NUR ---
LEVO STARTED AT 5MCG/MIN BP 86/41. CALLED ER. ER MD WILL INSERT CENTRAL LINE IN A FEW MINUTES WILL OBTAIN CONSENT FROM SISTER PAUL GARRISON. PT STILL FIGHTING VENT RT AWARE PT SAT IN LOW 80S
--- NOTE | 2021-12-01 21:30 | NUR ---
BELLA MD AT BEDSIDE PLACING CENTRAL LINE ON R GROIN. HOUSE SUP AT BEDSIDE. WILL CONTINUE TO MONITOR.
--- NOTE | 2021-12-01 22:22 | NUR ---
PATIENT WAS CLEANED AND REPOSITION FOR COMFORT. PURE WICK APPLIED. PAGED RT D/T PT DE SAT 71%
[2021-12-01] MEDS: ALBUTEROL SULFATE/IPRATROPIU 3 ML SOL IH SCH (23:00)
[2021-12-02] VITALS (30 sets, daily range): BP systolic 80–183; BP diastolic 33–104
--- NOTE | 2021-12-02 00:10 | NUR ---
PATIENT REMAINS SAT LOW BETWEEN 78-85% ON VENT SETTINGS 100%, 20, 450, +8 NO CYANOSIS NOTED. SKIN IS COLD, DRY TO TOUCH. LIPS ARE PINK. PULSE OX CHANGED POSITION WILL CONTINUE TO MONITOR.
--- NOTE | 2021-12-02 00:52 | NUR ---
RT AT BEDSIDE DRAWING ABG. WILL CONTINUE TO MONITOR. PT IS IN GUARDED CONDITION.
[2021-12-02] MEDS: ACETAMINOPHEN 325 MG TAB PO PRN ×2 (01:05→14:20)
--- NOTE | 2021-12-02 01:06 | NUR ---
PATIENT WITH AXILLARY TEMP OF 100.6F. ADMINISTERED TYLENOL 650MG PER PROVIDER ORDERS. COOLING MEASURES INITIATED. WILL RECHECK TEMP AND CONTINUE TO MONITOR
[2021-12-02 01:44] LABS: APPEARANCE,URINE CLEAR (CLEAR); BILIRUBIN,URINE NEGATIVE (NEGATIVE); BLOOD, URINE NEGATIVE (NEGATIVE); COLOR,URINE YELLOW (YELLOW); LEUKOCYTE ESTERASE ,URINE 1+ (NEGATIVE); NITRITE, URINE POSITIVE (NEGATIVE); UGLUCOSE NEGATIVE (NEGATIVE)
--- NOTE | 2021-12-02 01:52 | NUR ---
APPLIED RESEARCH DIRECTOR DR BARAKAT FOR [facility] [phone] TO REPORT ABNORM ABG RESULTS PENDING CALL BACK ABG RESULTS ARE FOLLOWS .. PH 7.487 CO2 49.1 HCO3 36.3 BE 11.6 PO2 36 SO2 71.9 (W/ CORRELATING SPO2)
[2021-12-02] MEDS ORDERED: NOREPINEPHRINE 4 MG/4 ML VIAL IV ONE ×2 (01:59→05:08)
--- NOTE | 2021-12-02 02:10 | NUR ---
SPOKE W/ DR IBRAHIM AND REPORTED CRITICAL ABG RESULTS ALONG W/ VENT SETTINGS AND PT CONDITION - WANTS NO CHANGES AT THIS TIME
--- NOTE | 2021-12-02 02:15 | NUR ---
SPOKE WITH RT. PER RT PAGED MANAGER RESOURCE ABIDALI TO REPORT ABNORMAL ABG RESULTS AND NO NEW ORDERS. PT REMAINS SAT LOW BETWEEN 77-82% ABG RESULTS ARE FOLLOWS: PH 7.487 CO2 49.1 HCO3 36.3 BE 11.6 PO2 36 SO2 71.9 (W/ CORRELATING SPO2)
[2021-12-02] MEDS: NOREPINEPHRINE 4 MG in DEXTROSE 5% 250 ML IV PRN (02:22)
[2021-12-02 02:27] LABS: RBC,URINE 0-5 /HPF (0-5)
[2021-12-02] MEDS: ALBUTEROL SULFATE/IPRATROPIU 3 ML SOL IH SCH ×5 (03:00→23:11)
--- NOTE | 2021-12-02 04:30 | NUR ---
PATIENT CLEANED AND REPOSITION FOR COMFORT. ORAL CARE PROVIDED. PT REMAINS LOW SAT AT 84% VENT SETTINGS REMAIN THE SAME: 100% 450 20 +8. WILL CONTINUE TO MONITOR.
[2021-12-02 05:11] LABS: BASOPHILS % (AUTO) 0.2 % (0.0-2.0); EOSINOPHILS % (AUTO) 0.3 % (0.0-4.0); HEMATOCRIT 26.6 % (36-48); HEMOGLOBIN 8.5 g/dL (12.0-16.0); LYMPHOCYTES # (AUTO) 0.3 K/uL (2.5-16.5); LYMPHOCYTES % (AUTO) 9.6 % (20.5-51.1); MEAN CORPUSCULAR HEMOGLOBIN 29 pg (27-31); MEAN CORPUSCULAR HGB CONC 32 g/dL (33-37); MONOCYTES # (AUTO) 0.2 K/uL (0.8-1.0); MONOCYTES % (AUTO) 5.8 % (1.7-9.3); NEUTROPHILS % (AUTO) 84.1 % (42.2-75.2); PLATELET COUNT (AUTO) 260 K/uL (140-450); RED BLOOD CELL COUNT(AUTO) 2.96 MIL/uL (4.20-5.40); RED CELL DISTRIBUTION WIDTH 18.7 % (11.6-13.7); WHITE BLOOD COUNT (AUTO) 3.6 K/uL (4.8-10.8)
[2021-12-02] MEDS: NOREPINEPHRINE 8 MG in DEXTROSE 5% 250 ML IV PRN ×2 (05:20→13:37)
[2021-12-02 05:37] LABS: ALBUMIN 2.4 g/dL (3.4-5.0); ANION GAP 4.7 (8-16); ASPARTATE AMINOTRANSFERASE 26 U/L (15-37); CARBON DIOXIDE 37.7 mmol/L (21-32); CHLORIDE 96 mmol/L (98-107); CREATININE 0.6 mg/dL (0.6-1.3); GLUCOSE 115 mg/dL (74-106); POTASSIUM 4.4 mmol/L (3.5-5.1); SODIUM SERUM 134 mmol/L (136-145); TOTAL BILIRUBIN 0.2 mg/dL (0.0-1.0); UREA NITROGEN, BLOOD 20 mg/dL (7-18)
[2021-12-02] MEDS: LEVOTHYROXINE 0.05 MG TAB PO SCH (06:16)
--- NOTE | 2021-12-02 07:12 | NUR ---
ENDORSED CARE OF PATIENT TO DAY SHIFT (TIMOTHY VALLADARES). PATIENT IN GUARDED CONDITION (QU=999, OO=182/65, O2 SAT=92, R=20).
--- NOTE | 2021-12-02 07:12 | NUR ---
RECEIVED BEDSIDE REPORT FROM CHIKA CASPER RN FOR CONTINUITY OF CARE. PT SUPINE IN THE BED, SEDATED, RASS -2. ETT TO VENT, ACPRVC, FIO2 100%, VT 450, R 20, PEEP 8. WHEEZES/CRACKLES BL LUNG SOUNDS. SR W PACS ON BEDSIDE MONITOR. NGT TO L NARE, CLAMPED. BOWEL SOUNDS ACTIVE. INCONTINENT OF BLADDER, PURE WICK TO SUCTION. GENERALIZED WEAKNESS. R FEM CENTRAL LINE INFUSING LEVOPHED AT 21 MCG/MIN AND PROPOFOL AT 40 MCG/KG/MIN. SKIN INTACT, BLANCHABLE REDNESS TO SACRUM. SOFT RESTRAINTS TO BL WRIST, RENEW AT 1800. NO S/S INJURY. SAFETY PRECAUTIONS MET. STANDARD PRECAUTIONS IN PLACE. CALL LIGHT WITHIN REACH. INITIAL ASSESSMENT COMPLETE, WILL CONTINUE TO CLOSELY MONITOR.
--- NOTE | 2021-12-02 08:00 | NUR ---
F/C INSERTED PER DR JANELL LEE. IMMEDIATE RETURN OF 300 ML CLEAR YELLOW URINE.
--- NOTE | 2021-12-02 08:15 | NUR ---
PT SISTER AT BEDSIDE. UPDATED REGARDING PT CONDITION, ALL QUESTIONS ANSWERED AT THIS TIME.
--- NOTE | 2021-12-02 08:25 | NUR ---
SEEN AND EXAMINED BY DR MACIEL
[2021-12-02] MEDS: ENOXAPARIN 40 MG/0.4 ML SYR SUBQ SCH (09:06)
[2021-12-02] MEDS: lisinopriL 5 MG TAB PO SCH (09:06)
[2021-12-02] MEDS: PANTOPRAZOLE 40 MG INJ VIAL IVP SCH (09:06)
[2021-12-02] MEDS: FUROSEMIDE 20 MG/2 ML VIAL IVP SCH (09:07)
[2021-12-02] MEDS: ASPIRIN 81 MG TAB.CHEW PO SCH (09:07)
[2021-12-02] MEDS: PROPOFOL 1000 MG/100 ML PREMIX 100 ML IV PRN ×3 (10:15→20:32)
--- NOTE | 2021-12-02 10:15 | NUR ---
TREY WOUND NURSE AT BEDSIDE. PT CLEANED AND REPOSITIONED. DRESSING APPLIED TO SACRUM FOR PROTECTION.
--- NOTE | 2021-12-02 10:20 | NUR ---
WOUND CARE NOTE: SKIN ASSESSMENT DONE WITH PRIMARY RN. PT. ADMITTED WITH SKIN ALTERATION. 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 FOAM DRESSING IN PLACE, AREA OFFLOADING. POC DISCUSSED WITH PRIMARY RN.. PT. DESAT TO 86 DURING TURNING AND REPOSITION, RT AT BED SIDE ASSESS PT. PT. NO S/S OF DISTRESS.PT. CHANGE OF CONDITION WITH LOW LANCE SCALE AT VERY HIGH RISK, CONTINUE TO FOLLOW PRESSURE INJURY PREVENTION INTERVENTIONS. RECOMMENDATIONS -APPLY HYDRAGUARD TO PERINEUM BID -SACRALCOCCYX APPLY FOAM DRESSING QD AND PRN IF SOILING, OFFLOADING AREA -POSITIONING: TURN AND REPOSITION PATIENT Q 2H OR SOONER USE PILLOWS TO KEEP BONY PROMINENCES FROM DIRECT CONTACT WITH SURFACES USE REPOSITIONING WEDGES TO PROVIDE 30-DEGREE ANGLE FOR SIDE LYING POSITIONS OFFLOADING OR FOAM DRESSING TO ALL TUBING TO PREVENT MEDICAL DEVICES RELATED PRESSURE INJURY -RE-EVALUATING AND MANAGING INCONTINENCE MONITOR SKIN CONDITION DURING POSITION CHANGE DO NOT MASSAGE REDNESS, BONY PROMINENCES FREQUENT GINGER-CARE AND PROVIDE BARRIER CREAMS PRN IF SOILING MOISTURE CONTROL BY OFFER BED HUBBARD/URINAL /ABSORBENT PAD TO WICK AND HOLD MOISTURE KEEP SKIN DRY AND PROTECT FROM FRICTION -MANAGE FRICTION/SHEAR/MOBILITY KEEP HOB AT THE LOWEST LEVEL OF ELEVATION NO MORE THAN 30 DEGREE UNLESS OTHERWISE CONTRAINDICATED USE LIFT SHEET OR TRANSFER DEVICE TO MOVE PATIENT AND PREVENT LATERAL SHEER. PROTECT HEELS, ELBOWS BONY PROMINENCES WITH SKIN BERRIES OR FOAM DRESSING IF EXPOSED TO FRICTION OFFLOAD BILATERAL HEELS BY PLACING PILLOWS UNDER CALVES AT ALL TIMES, UNLESS OTHERWISE CONTRAINDICATED -PRESSURE REDISTRIBUTION SURFACE THERAPY AQUILINO ISOFLEX MATTRESS -NUTRITION: PLEASE FOLLOW RD RECOMMENDATIONS AND OFFER NUTRITION SUPPLEMENTS IF ORDERED. Addendum: 12/02/21 at 1147 by Danette Richards RN (Grace) SISTER AT BED SIDE EM ON SKIN WITH COMORBIDITIES EXPLAINED. SHE ALSO AWARE PRIOR ADMISSION SACRALCOCCYX WAS RED. POC DISCUSSED VERBALIZES UNDERSTANDING.
--- NOTE | 2021-12-02 10:26 | NUR ---
PATIENT P.T. ON HOLD UNTIL MEDICALLY CLEARED AND STABLE. NEW ORDERS NEEDED WHEN PATIENT IS APPROPRIATE; RADIATION THERAPIST AWARE
--- NOTE | 2021-12-02 11:49 | NUR ---
12/02/21 RD FOLLOW UP COMPLETED PLEASE REFER TO NUTRITION ASSESSMENT UNDER CARE ACTIVITY FOR ESTIMATED NUTRITIONAL NEEDS. 1. RECOMMENDED JEVITY 1.2 WITH A GOAL RATE OF 50 ML/HR WITH MARK BID -FWF: 200 ML Q6H OR PER MD -START AT 10 ML/HR AND INCREASE BY 10 ML Q4H TOLERATED -WITH MARK BID, PT WILL RECEIVED 100% OF ESTIMATED NUTRITIONAL NEEDS 2. MONITOR NUTRITION-RELATED LAB VALUES 3. RD TO FOLLOW-UP 2-3 DAYS, HIGH RISK SAMUEL MODI RD
--- NOTE | 2021-12-02 12:38 | NUR ---
SEEN AND EXAMINED BY DR BARFIELD.
--- NOTE | 2021-12-02 13:00 | NUR ---
SEEN AND EXAMINED BY DR CERRATO.
[2021-12-02] MEDS: FOAM DRESSING TP SCH (13:24)
[2021-12-02] MEDS: HYDRAGUARD CREAM TP SCH (13:24)
[2021-12-02] MEDS: PIPERACILLIN/TAZOBACTAM 3.375 GM in DEXTROSE 5% 50 ML IV SCH ×2 (13:25→20:34)
--- NOTE | 2021-12-02 13:30 | NUR ---
US AT BEDSIDE
--- NOTE | 2021-12-02 16:45 | NUR ---
DANII PICC NURSE AT BEDSIDE.
--- NOTE | 2021-12-02 17:02 | NUR ---
XRAY AT BEDSIDE
--- NOTE | 2021-12-02 19:17 | NUR ---
ENDORSED BEDSIDE REPORT TO JUSTINA CASPER RN FOR CONTINUITY OF CARE. NO S/S ACUTE DISTRESS AT THIS TIME.
--- NOTE | 2021-12-02 19:45 | NUR ---
MIKHAIL CALLED AND REPORTED BLOOD IN THE TUBE FEEDING RESIDUAL. NO ORDERS GIVEN. AT [address] DR[address] MACIEL WAS CALLED AGAIN FOR ANOTHER PT,; I SPOKE WITH HER AND INFORMED HER OF THE WILMER RED BLOOD IN THE TUBE FEEDING RESIDUAL AND SHE ORDERED A KUB. THE KUB WAS DONE NOW WAITING ON THE RESULTS.
[2021-12-03] VITALS (29 sets, daily range): BP systolic 79–145; BP diastolic 50–71
[2021-12-03] MEDS: HYDRAGUARD CREAM TP SCH ×2 (02:14→13:06)
[2021-12-03] MEDS: PROPOFOL 1000 MG/100 ML PREMIX 100 ML IV PRN ×3 (02:26→18:49)
[2021-12-03] MEDS: ALBUTEROL SULFATE/IPRATROPIU 3 ML SOL IH SCH ×6 (04:14→23:57)
[2021-12-03] MEDS: PIPERACILLIN/TAZOBACTAM 3.375 GM in DEXTROSE 5% 50 ML IV SCH ×3 (04:35→21:01)
[2021-12-03 05:33] LABS: BASOPHILS % (AUTO) 0.3 % (0.0-2.0); EOSINOPHILS % (AUTO) 0.3 % (0.0-4.0); HEMOGLOBIN 8.1 g/dL (12.0-16.0); LYMPHOCYTES # (AUTO) 0.4 K/uL (2.5-16.5); LYMPHOCYTES % (AUTO) 3.3 % (20.5-51.1); MEAN CORPUSCULAR HEMOGLOBIN 29 pg (27-31); MEAN CORPUSCULAR HGB CONC 32 g/dL (33-37); MEAN CORPUSCULAR VOLUME 88.5 fL (80-94); MONOCYTES # (AUTO) 0.4 K/uL (0.8-1.0); MONOCYTES % (AUTO) 3.3 % (1.7-9.3); NEUTROPHILS # (AUTO) 10.1 K/uL (1.8-7.7); NEUTROPHILS % (AUTO) 92.8 % (42.2-75.2); PLATELET COUNT (AUTO) 268 K/uL (140-450); RED BLOOD CELL COUNT(AUTO) 2.83 MIL/uL (4.20-5.40); RED CELL DISTRIBUTION WIDTH 18.2 % (11.6-13.7); WHITE BLOOD COUNT (AUTO) 10.9 K/uL (4.8-10.8)
[2021-12-03] MEDS: LEVOTHYROXINE 0.05 MG TAB PO SCH (06:02)
[2021-12-03 06:03] LABS: ALBUMIN 2.1 g/dL (3.4-5.0); ANION GAP 7.3 (8-16); ASPARTATE AMINOTRANSFERASE 31 U/L (15-37); CARBON DIOXIDE 37.3 mmol/L (21-32); CHLORIDE 96 mmol/L (98-107); CREATININE 0.5 mg/dL (0.6-1.3); GLUCOSE 115 mg/dL (74-106); MAGNESIUM 2.1 mg/dL (1.8-2.4); PHOSPHORUS 3.7 mg/dL (2.5-4.9); POTASSIUM 3.6 mmol/L (3.5-5.1); SODIUM SERUM 137 mmol/L (136-145); TOTAL BILIRUBIN 0.3 mg/dL (0.0-1.0); UREA NITROGEN, BLOOD 31 mg/dL (7-18)
--- NOTE | 2021-12-03 07:05 | NUR ---
RECEIVED BEDSIDE REPORT FROM JUSTINA CASPER RN FOR CONTINUITY OF CARE. PT SUPINE IN THE BED, SEDATED, RASS -2. ETT TO VENT, ACPRVC, FIO2 90%, VT 450, R 20, PEEP 8. WHEEZES/CRACKLES BL LUNG SOUNDS. SR W PACS ON BEDSIDE MONITOR. NGT TO L NARE, INFUSING JEVITY AT 10 ML/HR W 200 ML Q6H WATER FLUSH. BOWEL SOUNDS ACTIVE. F/C TO GRAVITY DRAINING CLEAR YELLOW URINE. GENERALIZED WEAKNESS. GLENN PICC INFUSING LEVOPHED AT 4 MCG/MIN AND PROPOFOL AT 40 MCG/KG/MIN. SKIN INTACT, BLANCHABLE REDNESS TO SACRUM. SOFT RESTRAINTS TO BL WRIST, RENEW AT 1800. NO S/S INJURY. SAFETY PRECAUTIONS MET. STANDARD PRECAUTIONS IN PLACE. CALL LIGHT WITHIN REACH. INITIAL ASSESSMENT COMPLETE, WILL CONTINUE TO CLOSELY MONITOR.
[2021-12-03] MEDS: ASPIRIN 81 MG TAB.CHEW PO SCH (08:09)
[2021-12-03] MEDS: PANTOPRAZOLE 40 MG INJ VIAL IVP SCH (08:09)
[2021-12-03] MEDS: ENOXAPARIN 40 MG/0.4 ML SYR SUBQ SCH (08:09)
--- NOTE | 2021-12-03 09:00 | NUR ---
PT SISTER, PAUL, AT BEDSIDE.
--- NOTE | 2021-12-03 09:10 | NUR ---
SEEN AND EXAMINED BY DR MACIEL
--- NOTE | 2021-12-03 11:00 | NUR ---
RESPIRATIONS EVEN AND UNLABORED. NO S/S ACUTE DISTRESS. VSS. WILL CONTINUE TO CLOSELY MONITOR.
[2021-12-03] MEDS: NOREPINEPHRINE 8 MG in DEXTROSE 5% 250 ML IV PRN (11:15)
--- NOTE | 2021-12-03 12:55 | NUR ---
SEEN AND EXAMINED BY DR CERRATO.
[2021-12-03] MEDS: FOAM DRESSING TP SCH (13:06)
--- NOTE | 2021-12-03 14:00 | NUR ---
RASS -2. VSS. NO S/S ACUTE DISCOMFORT OR RESPIRATORY DISTRESS. WILL CONTINUE TO MONITOR.
--- NOTE | 2021-12-03 15:30 | NUR ---
SEEN AND EXAMINED BY DR BARFIELD. ORDERS RECEIVED. SPOKE WITH PT SISTER, PAUL, AT BEDSIDE. UPDATED REGARDING PT CONDITION.
--- NOTE | 2021-12-03 15:50 | NUR ---
PT CLEANED AND REPOSITIONED. NO STOOL NOTED. SACRAL DRESSING CHANGED. SKIN INTACT. TOLERATED MOVEMENT WELL. EMPTIED 1000 ML CLEAR YELLOW URINE FROM F/C. WILL CONTINUE TO CLOSELY MONITOR.
--- NOTE | 2021-12-03 19:26 | NUR ---
ENDORSED BEDSIDE REPORT TO [facility] RN FOR CONTINUITY OF CARE. NO ACUTE DISTRESS AT THIS TIME.
--- NOTE | 2021-12-03 20:46 | NUR ---
PATIENT SEDATED ON PROPOFOL AT 30 MCG 10.2 ML.ALSO HAS LEVOPHED AT 1.5MCG 2.18 ML HAS ET-TUBE AC/PRVC RATE 20, TV450, FI02 75% PEEP 6 SAT 100% LUNG DIMINISH. SINUS ON MONITOR HAS N.G.T IN LEFT NARE RECEIVING JEVITY AT 40 HOUR GOAL 50 HOUR. HAS WATER FLUSH 200CC EVERY SIX HOURS. TEMP 98.7 HAS PICC LINE UPPER RIGHT ARM ALL LINES PATENT.F/C DRAINING YELLOW URINE.
[2021-12-04] VITALS (29 sets, daily range): BP systolic 98–157; BP diastolic 52–84
[2021-12-04] MEDS: HYDRAGUARD CREAM TP SCH ×2 (01:10→13:19)
[2021-12-04] MEDS: PROPOFOL 1000 MG/100 ML PREMIX 100 ML IV PRN ×3 (01:24→18:59)
[2021-12-04] MEDS: ALBUTEROL SULFATE/IPRATROPIU 3 ML SOL IH SCH ×6 (05:00→23:00)
[2021-12-04] MEDS: PIPERACILLIN/TAZOBACTAM 3.375 GM in DEXTROSE 5% 50 ML IV SCH ×3 (05:11→20:36)
[2021-12-04 05:38] LABS: BASOPHILS # (AUTO) 0.1 K/uL (0.00-0.22); BASOPHILS % (AUTO) 0.6 % (0.0-2.0); EOSINOPHILS # (AUTO) 0.1 K/uL (0-0.4); EOSINOPHILS % (AUTO) 0.8 % (0.0-4.0); HEMATOCRIT 22.6 % (36-48); HEMOGLOBIN 7.5 g/dL (12.0-16.0); LYMPHOCYTES # (AUTO) 0.3 K/uL (2.5-16.5); LYMPHOCYTES % (AUTO) 2.8 % (20.5-51.1); MEAN CORPUSCULAR HEMOGLOBIN 29 pg (27-31); MEAN CORPUSCULAR HGB CONC 33 g/dL (33-37); MEAN CORPUSCULAR VOLUME 86.9 fL (80-94); MONOCYTES # (AUTO) 0.2 K/uL (0.8-1.0); MONOCYTES % (AUTO) 2.2 % (1.7-9.3); NEUTROPHILS # (AUTO) 9.4 K/uL (1.8-7.7); NEUTROPHILS % (AUTO) 93.6 % (42.2-75.2); PLATELET COUNT (AUTO) 254 K/uL (140-450); RED CELL DISTRIBUTION WIDTH 18.5 % (11.6-13.7); WHITE BLOOD COUNT (AUTO) 10.1 K/uL (4.8-10.8)
[2021-12-04 06:05] LABS: ANION GAP 9.4 (8-16); ASPARTATE AMINOTRANSFERASE 22 U/L (15-37); CARBON DIOXIDE 35.1 mmol/L (21-32); CHLORIDE 98 mmol/L (98-107); CREATININE 0.4 mg/dL (0.6-1.3); GLUCOSE 109 mg/dL (74-106); MAGNESIUM 2.3 mg/dL (1.8-2.4); PHOSPHORUS 3.4 mg/dL (2.5-4.9); SODIUM SERUM 140 mmol/L (136-145); TOTAL BILIRUBIN 0.3 mg/dL (0.0-1.0); UREA NITROGEN, BLOOD 21 mg/dL (7-18)
[2021-12-04 06:07] LABS: POTASSIUM 2.5 mmol/L (3.5-5.1)
[2021-12-04] MEDS ORDERED: POTASSIUM CHLORIDE 20% 40 MEQ/15 ML UDC NG SCH (06:15)
[2021-12-04] MEDS: LEVOTHYROXINE 0.05 MG TAB PO SCH (06:38)
--- NOTE | 2021-12-04 06:54 | NUR ---
LAB CALLED WITH K2.5 CLLED NOT OUTDOOR ADVENTURE INSTRUCTOR CALLED TOLD K 2.5 ORDER GIVEN TO GIVE 60 RANDAL OF KCL VIA N.T.G. X1. GIVEN 0637.
--- NOTE | 2021-12-04 07:10 | NUR ---
SBAR report received from Deborah AGUIRRE, all cares assumed. Pt sedated with diprivan 30mcg. Intubated, vent settings: AC/PRVC 20, 450, 65%, 6. Bed in low, locked position.
--- NOTE | 2021-12-04 08:30 | NUR ---
Sister of pt at bedside, update given, all questions answered at this time.
[2021-12-04] MEDS ORDERED: KCL 20 MEQ/WATER INJ PREMIX 100 ML IV SCH (09:00)
[2021-12-04] MEDS: ASPIRIN 81 MG TAB.CHEW PO SCH (09:18)
[2021-12-04] MEDS: PANTOPRAZOLE 40 MG INJ VIAL IVP SCH (09:19)
[2021-12-04] MEDS: ENOXAPARIN 40 MG/0.4 ML SYR SUBQ SCH (09:27)
--- NOTE | 2021-12-04 09:30 | NUR ---
Dr. France roundopal at bedside, update given, no new orders at this time.
--- NOTE | 2021-12-04 09:40 | NUR ---
Dr. Mathew rounding at bedside, update given, no new orders at this time.
--- NOTE | 2021-12-04 13:11 | NUR ---
12/04/21 RD FOLLOW UP COMPLETED PLEASE REFER TO NUTRITION ASSESSMENT UNDER CARE ACTIVITY FOR ESTIMATED NUTRITIONAL NEEDS. 1. CONTINUE JEVITY 1.2 @ 50 ML/HR WITH MARK BID -FWF: 200 ML Q6H OR PER MD -WITH MARK BID, PT WILL RECEIVED 100% OF ESTIMATED NUTRITIONAL NEEDS 2. MONITOR NUTRITION-RELATED LAB VALUES 3. RD TO FOLLOW-UP 2-3 DAYS, HIGH RISK SAMUEL MODI RD
[2021-12-04] MEDS: FOAM DRESSING TP SCH (13:19)
--- NOTE | 2021-12-04 14:00 | NUR ---
Bed bath given, wound care complete, new dressing applied to sacral wound. Linens and gown changed. No signs of distress noted at this time, VSS.
--- NOTE | 2021-12-04 17:30 | NUR ---
Dr. Miranda rounding at bedside, speaking with family, no new orders at this time.
--- NOTE | 2021-12-04 19:00 | NUR ---
RECEIVED REPORT FROM MAMADOU AGUIRRE, PT IN STATED CONDITIO. SHE REMAINS IN SOFT THIAGO RESTRAINTS, PROPOFOL AN LEVOPHED. HER MAP IS CURRENTLY 98. WILL CONTINUE TO MONITOR PT CLOSELY.
[2021-12-04] MEDS: NOREPINEPHRINE 8 MG in DEXTROSE 5% 250 ML IV PRN (19:01)
--- NOTE | 2021-12-04 19:01 | NUR ---
SBAR report given to Madi AGUIRRE, all cares endorsed.
[2021-12-05] VITALS (26 sets, daily range): BP systolic 88–139; BP diastolic 43–77
[2021-12-05] MEDS: PROPOFOL 1000 MG/100 ML PREMIX 100 ML IV PRN ×4 (00:34→21:29)
[2021-12-05] MEDS: HYDRAGUARD CREAM TP SCH ×2 (02:11→12:26)
[2021-12-05] MEDS: ALBUTEROL SULFATE/IPRATROPIU 3 ML SOL IH SCH ×6 (03:45→23:00)
[2021-12-05 04:14] LABS: BASOPHILS % (AUTO) 0.5 % (0.0-2.0); EOSINOPHILS # (AUTO) 0.1 K/uL (0-0.4); EOSINOPHILS % (AUTO) 1.1 % (0.0-4.0); HEMATOCRIT 22.9 % (36-48); HEMOGLOBIN 7.5 g/dL (12.0-16.0); LYMPHOCYTES # (AUTO) 0.4 K/uL (2.5-16.5); LYMPHOCYTES % (AUTO) 5.5 % (20.5-51.1); MEAN CORPUSCULAR HEMOGLOBIN 29 pg (27-31); MEAN CORPUSCULAR HGB CONC 33 g/dL (33-37); MEAN CORPUSCULAR VOLUME 88.5 fL (80-94); MONOCYTES # (AUTO) 0.3 K/uL (0.8-1.0); MONOCYTES % (AUTO) 3.7 % (1.7-9.3); NEUTROPHILS # (AUTO) 6.7 K/uL (1.8-7.7); NEUTROPHILS % (AUTO) 89.2 % (42.2-75.2); PLATELET COUNT (AUTO) 213 K/uL (140-450); RED BLOOD CELL COUNT(AUTO) 2.59 MIL/uL (4.20-5.40); RED CELL DISTRIBUTION WIDTH 18.8 % (11.6-13.7); WHITE BLOOD COUNT (AUTO) 7.5 K/uL (4.8-10.8)
[2021-12-05 04:38] LABS: ALBUMIN 1.9 g/dL (3.4-5.0); ANION GAP 5.8 (8-16); ASPARTATE AMINOTRANSFERASE 17 U/L (15-37); CARBON DIOXIDE 35.3 mmol/L (21-32); CHLORIDE 101 mmol/L (98-107); CREATININE 0.3 mg/dL (0.6-1.3); GLUCOSE 133 mg/dL (74-106); MAGNESIUM 2.4 mg/dL (1.8-2.4); PHOSPHORUS 3.8 mg/dL (2.5-4.9); POTASSIUM 3.1 mmol/L (3.5-5.1); SODIUM SERUM 139 mmol/L (136-145); TOTAL BILIRUBIN 0.4 mg/dL (0.0-1.0); UREA NITROGEN, BLOOD 14 mg/dL (7-18)
[2021-12-05] MEDS: PIPERACILLIN/TAZOBACTAM 3.375 GM in DEXTROSE 5% 50 ML IV SCH ×3 (04:55→20:57)
--- NOTE | 2021-12-05 06:00 | NUR ---
PT HAS A DEEP FROWN ON HER BROW; SHE IS AWAKE AND MOVING ALL EXTREMETIES. SHE FEELS WARM AMD HER TEMP WAS TAKEN AXILLARY 98.1. BLANKET REMOVE. WHEN ASKED IF SHE HAD PAIN SHE GRIMACE AND SHE REACHED FOR MY HAND. PROPOFOL REMAINS AT 40 MCG .
[2021-12-05] MEDS: LEVOTHYROXINE 0.05 MG TAB PO SCH (06:03)
--- NOTE | 2021-12-05 06:50 | NUR ---
DR RINALDI TEXTED BACK WITH A ORDER FOR POTASSIUM TO BE GIVEN ; 20 MEQ K MOHAMUD. ENDORSED TO RENETTA AGUIRRE.
--- NOTE | 2021-12-05 06:50 | NUR ---
PT'S POTASSIUM IS 3.1; HER POTASSIUM COVERAGE WAS DC'D 12/04/21. A TEXT WAS SENT TO FOR ORDERS..
--- NOTE | 2021-12-05 07:10 | NUR ---
RECEIVED PT NON VERBAL, ET TUBE TO VENT SETTINGS AC PRVC TV 400 RATE 18 PEEP 6 FIO2@60%. SINUS RHYTHM ON MONITOR. NG-TUBE INTACT TO LEFT NARE INFUSING JEVITY 1.2 @ 50ML/HR WITH FREE WATER FLUSH AT 200ML Q6H. TOLERATING FEEDING WELL WITH NO GASTRIC RESIDUAL. MILLER CATHETER INTACT AND DRAINING TO BSD. BILAT SOFT RESTRAINTS ON. SCD ON BILAT LOWER EXTREMITY. PICC LINE DOUBLE LUMEN INTACT AND PATENT INFUSING PROPOFOL @ 40MCG/KG/MIN AND LEVOPHED @ 1.5MCG/MIN. SAFETY PRECAUTIONS IN PLACE.
[2021-12-05] MEDS: PANTOPRAZOLE 40 MG INJ VIAL IVP SCH (08:12)
[2021-12-05] MEDS: ENOXAPARIN 40 MG/0.4 ML SYR SUBQ SCH (08:12)
[2021-12-05] MEDS: ASPIRIN 81 MG TAB.CHEW PO SCH (08:12)
[2021-12-05] MEDS ORDERED: KCL 20 MEQ/WATER INJ PREMIX 100 ML IV SCH (08:30)
--- NOTE | 2021-12-05 09:15 | NUR ---
PT HAD A MEDIUM SOFT BROWN STOOL. PERICARE PROVIDED. SUCTIONED NEEDED. ORAL CARE RENDERED. SAFETY PRECAUTIONS IN PLACE.
[2021-12-05] MEDS: FOAM DRESSING TP SCH (12:26)
--- NOTE | 2021-12-05 12:50 | NUR ---
SEEN AND EXAMINED BY DR. CERRATO. NO NEW ORDERS.
--- NOTE | 2021-12-05 13:23 | NUR ---
AT BEDSIDE. DR. PADRON AT BEDSIDE EXAMINING PT. ALL QUESTIONS ANSWERED. ORDER RECEIVED.
[2021-12-05] MEDS ORDERED: MORPHINE SULFATE 2 MG/ML SYR IVP PRN (13:25)
[2021-12-05] MEDS ORDERED: HYDROcodone/APAP 5/325 MG 1 TAB TAB PO PRN (13:25)
--- NOTE | 2021-12-05 18:30 | NUR ---
SEEN AND EXAMINED BY DR. RAYGOZA.
--- NOTE | 2021-12-05 19:00 | NUR ---
RECEIVED REPORT FROM RENETTA; PT'S SISTER AT THE BEDSIDE VERY INVOLVED WITH PT'S CARE. PT IS AWARE AND COMMUNICATING WITH SISTER.. PULLED UP AND REPOSITIONED. SHE DESATURATED TO 86%, PLACED ON 100% FIO2. PATIENT PASSING FLATUS NO BM.
--- NOTE | 2021-12-05 19:10 | NUR ---
ENDORSED TO MERCHANDISE PICKUP/RECEIVING ASSOCIATE NURSE JUSTINA FOR CONTINUITY OF CARE.
[2021-12-05] MEDS: ONDANSETRON 4 MG/2 ML VIAL IVP PRN (23:01)
--- NOTE | 2021-12-05 23:10 | NUR ---
PT GRIMACING WITH DEEP FROWN ON HER BROW. EST PAIN LEVEL 4-6 MORPHINE 2MG AND ZOFRAN 4MG GIVEN WILL CONTINUE TO MONITOR PT CLOSELY
--- NOTE | 2021-12-05 23:13 | NUR ---
BP 125/55 HR 69, RESP 18. SPO2 97%.
[2021-12-06] VITALS (27 sets, daily range): BP systolic 88–143; BP diastolic 46–69
--- NOTE | 2021-12-06 | NUR ---
PT APPEARS MORE PEACEFUL. THE DEEP FROWN IS GONE SND SHE IS A -2 RASS AT THIS TIME.VITAL SIGNS REMAIN WNL.
[2021-12-06] MEDS: HYDRAGUARD CREAM TP SCH ×2 (00:53→12:19)
--- NOTE | 2021-12-06 01:00 | NUR ---
DURING THE PROCESS OF CLEANING THE PT HER BP DROPPED TO 87/44. SHE WAS ON 1.3MCG OF LEVOPHED. THE BP WAS RECYCLED TO 81/46 LEVOPHED WAS INCREASED TO 2MCG/MIN. THE BP CONTINUED TO DROP TO 74/42. THE LEVOPHED WAS INCREASED TO 3MCG/MIN. 1/2 HOUR LATER THE BP TRENDED UP TO 142/63. THE LEVOPHED WAS DECREASED TO 2MCG/[place]..[place] [address] WITH A MAP OF 97.PT APPEARS COMFORTABLE AT THIS [id number].
[2021-12-06] MEDS: ALBUTEROL SULFATE/IPRATROPIU 3 ML SOL IH SCH ×6 (03:00→23:07)
[2021-12-06] MEDS: PROPOFOL 1000 MG/100 ML PREMIX 100 ML IV PRN ×3 (04:02→18:17)
--- NOTE | 2021-12-06 04:04 | NUR ---
BLOOD DRAW FROM CENTRAL LINE FOR PENDING LAB ORDERS (CBC, CMP, PHOS, AND MAG). PROCEDURE WAS TOLERATED WELL, WILL CONTINUE TO MONITOR PATIENT Addendum: 12/06/21 at 0406 by Jenny Ruiz RN VOID NOTE INCORRECT PATIENT
[2021-12-06 04:21] LABS: BASOPHILS % (AUTO) 0.4 % (0.0-2.0); EOSINOPHILS # (AUTO) 0.2 K/uL (0-0.4); EOSINOPHILS % (AUTO) 3.8 % (0.0-4.0); HEMATOCRIT 24.4 % (36-48); LYMPHOCYTES # (AUTO) 0.5 K/uL (2.5-16.5); LYMPHOCYTES % (AUTO) 11.6 % (20.5-51.1); MEAN CORPUSCULAR HEMOGLOBIN 29 pg (27-31); MEAN CORPUSCULAR HGB CONC 33 g/dL (33-37); MEAN CORPUSCULAR VOLUME 87.8 fL (80-94); MONOCYTES # (AUTO) 0.4 K/uL (0.8-1.0); MONOCYTES % (AUTO) 9.5 % (1.7-9.3); NEUTROPHILS # (AUTO) 3.4 K/uL (1.8-7.7); NEUTROPHILS % (AUTO) 74.7 % (42.2-75.2); PLATELET COUNT (AUTO) 236 K/uL (140-450); RED BLOOD CELL COUNT(AUTO) 2.78 MIL/uL (4.20-5.40); RED CELL DISTRIBUTION WIDTH 19.2 % (11.6-13.7); WHITE BLOOD COUNT (AUTO) 4.5 K/uL (4.8-10.8)
[2021-12-06] MEDS: PIPERACILLIN/TAZOBACTAM 3.375 GM in DEXTROSE 5% 50 ML IV SCH ×3 (04:41→20:28)
[2021-12-06 04:56] LABS: ALBUMIN 1.9 g/dL (3.4-5.0); ANION GAP 4.7 (8-16); ASPARTATE AMINOTRANSFERASE 13 U/L (15-37); CARBON DIOXIDE 35.4 mmol/L (21-32); CHLORIDE 103 mmol/L (98-107); CREATININE 0.3 mg/dL (0.6-1.3); GLUCOSE 114 mg/dL (74-106); MAGNESIUM 2.4 mg/dL (1.8-2.4); PHOSPHORUS 3.6 mg/dL (2.5-4.9); POTASSIUM 3.1 mmol/L (3.5-5.1); SODIUM SERUM 140 mmol/L (136-145); TOTAL BILIRUBIN 0.4 mg/dL (0.0-1.0); UREA NITROGEN, BLOOD 17 mg/dL (7-18)
[2021-12-06] MEDS: LEVOTHYROXINE 0.05 MG TAB PO SCH (05:48)
--- NOTE | 2021-12-06 07:08 | NUR ---
CARE OF PATIENT ENDORSED TO DAY SHIFT (TIMOTHY JACKSON AND TIMOTHY CHOI).
--- NOTE | 2021-12-06 07:15 | NUR ---
RECEIVED PT IN BED WITH EYES CLOSED, BREATHING EVEN AND UNLABORED. ET TUBE TO VENT SETTINGS AC PRVC TV 400 RATE 18 PEEP 6 FIO2@80%. SINUS RHYTHM ON MONITOR. NG-TUBE INTACT INFUSING JEVITY 1.2@50ML/HR WITH FWF 200 Q6H. MILLER CATHETER DRAINING TO BSD. BILAT SOFT WRIST RESTRAINTS ON. SCD ON BILAT LOWER EXTREMITY. PICC LINE ON RIGHT UPPER ARM INFUSING PROPOFOL @40MCG/KG/MIN, NS @TKO, AND LEVOPHED @ 1.5MCG/MIN. SAFETY PRECAUTIONS IN PLACE.
--- NOTE | 2021-12-06 08:23 | NUR ---
SEEN AND EXAMINED BY DR. PADRON. NEW ORDER RECEIVED FOR GI CONSULT AND ZOSYN RENEWAL.
[2021-12-06] MEDS: ASPIRIN 81 MG TAB.CHEW PO SCH (08:25)
[2021-12-06] MEDS: ENOXAPARIN 40 MG/0.4 ML SYR SUBQ SCH (08:25)
[2021-12-06] MEDS: PANTOPRAZOLE 40 MG INJ VIAL IVP SCH ×2 (08:25→20:28)
[2021-12-06] MEDS: KCL 20 MEQ/WATER INJ PREMIX 100 ML IV PRN (08:26)
[2021-12-06] MEDS: POTASSIUM CHLORIDE 20% 40 MEQ/15 ML UDC GT SCH (09:00)
--- NOTE | 2021-12-06 09:00 | NUR ---
POTASSIUM CHLORIDE 20MEQ NOT GIVEN VIA NG-TUBE DUE TO PT CURRENTLY RECEIVING K-RIDER 20MEQ FOR LOW POTASSIUM.
--- NOTE | 2021-12-06 10:50 | NUR ---
DR. WOODWARD AT BEDSIDE EXAMINING PT.
--- NOTE | 2021-12-06 11:54 | NUR ---
12/06/21 RD FOLLOW UP COMPLETED. PLEASE REFER TO NUTRITION ASSESSMENT UNDER CARE ACTIVITY FOR ESTIMATED NUTRITIONAL NEEDS. 1. CONTINUE JEVITY 1.2 @ 50 ML/HR WITH MARK BID -FWF: 200 ML Q6H OR PER MD -WITH MARK BID, PT WILL RECEIVE 100% OF ESTIMATED NUTRITIONAL NEEDS 2. MONITOR NUTRITION-RELATED LAB VALUES 3. RD TO FOLLOW-UP 2-3 DAYS, HIGH RISK HELEN BRINK RD
[2021-12-06] MEDS: FOAM DRESSING TP SCH (12:19)
--- NOTE | 2021-12-06 16:30 | NUR ---
PT HAD MEDIUM BROWN LOOSE STOOL. KEPT CLEAN AND DRY. SUCTIONED ORAL SECRETIONS. ORAL CARE RENDERED.
--- NOTE | 2021-12-06 19:13 | NUR ---
ENDORSED TO YELLOW PAGES SPACE SALESPERSON NURSE MAURICE FOR CONTINUITY OF CARE.
--- NOTE | 2021-12-06 19:30 | NUR ---
RECEIVED REPORT FROM DAY SHIFT (TIMOTHY JACKSON). PATIENT REMAINS INTUBATED AND ON VENT, CURRENT SETTINGS (AC/PRVC, FIO2 = 80, VT= 400, R = 18, PEEP = 7). HAS LEVOPHED DRIP RUNNING AT 1.7MCG, PROPOFOL RUNNING AT 40MCG. SISTER AT BEDSIDE. ALL QUESTIONS ANSWERED. WILL CONTINUE TO MONITOR PATIENT
--- NOTE | 2021-12-06 21:15 | NUR ---
BP NOTED TO BE 88/49, INCREASED LEVOPHED TO 2 MCG/MIN. WILL CONTINUE TO MONITOR
--- NOTE | 2021-12-06 21:25 | NUR ---
BLOOD PRESSURE NOW 111/69 AFTER INCREASING LEVOPHED TO 2 MCG/MIN, PATIENT REMAINS SEDATED. WILL CONTINUE TO MONITOR
[2021-12-07] VITALS (29 sets, daily range): BP systolic 90–142; BP diastolic 54–79
[2021-12-07] MEDS: HYDRAGUARD CREAM TP SCH ×2 (00:38→13:16)
[2021-12-07] MEDS: PROPOFOL 1000 MG/100 ML PREMIX 100 ML IV PRN ×4 (00:38→19:09)
--- NOTE | 2021-12-07 01:38 | NUR ---
NO CHANGES NOTED; PATIENT DOES NOT APPEAR TO BE IN DISTRESS. WILL CONTINUE TO MONITOR PATIENT.
--- NOTE | 2021-12-07 03:15 | NUR ---
BP NOTED TO BE 85/39; CHECKED PATIENT, REAPPLIED BP CUFF AND RECYCLED BP. UPDATED BP = 123/96. WILL CONTINUE TO MONITOR PATIENT
[2021-12-07] MEDS: ALBUTEROL SULFATE/IPRATROPIU 3 ML SOL IH SCH ×6 (03:19→22:55)
--- NOTE | 2021-12-07 04:17 | NUR ---
BLOOD DRAW FROM PICC LINE, SAMPLE GIVEN TO LAB. WILL CONTINUE TO MONITOR PATIENT
[2021-12-07] MEDS: PIPERACILLIN/TAZOBACTAM 3.375 GM in DEXTROSE 5% 50 ML IV SCH ×3 (04:37→20:11)
[2021-12-07 05:45] LABS: BASOPHILS % (AUTO) 0.6 % (0.0-2.0); EOSINOPHILS # (AUTO) 0.2 K/uL (0-0.4); EOSINOPHILS % (AUTO) 5.6 % (0.0-4.0); HEMATOCRIT 24.3 % (36-48); HEMOGLOBIN 7.9 g/dL (12.0-16.0); LYMPHOCYTES # (AUTO) 0.5 K/uL (2.5-16.5); LYMPHOCYTES % (AUTO) 12.4 % (20.5-51.1); MEAN CORPUSCULAR HEMOGLOBIN 28 pg (27-31); MEAN CORPUSCULAR HGB CONC 32 g/dL (33-37); MEAN CORPUSCULAR VOLUME 87.7 fL (80-94); MONOCYTES # (AUTO) 0.5 K/uL (0.8-1.0); MONOCYTES % (AUTO) 12.1 % (1.7-9.3); NEUTROPHILS % (AUTO) 69.3 % (42.2-75.2); PLATELET COUNT (AUTO) 243 K/uL (140-450); RED BLOOD CELL COUNT(AUTO) 2.77 MIL/uL (4.20-5.40); RED CELL DISTRIBUTION WIDTH 19.3 % (11.6-13.7); WHITE BLOOD COUNT (AUTO) 4.3 K/uL (4.8-10.8)
[2021-12-07] MEDS: LEVOTHYROXINE 0.05 MG TAB PO SCH (06:43)
--- NOTE | 2021-12-07 06:45 | NUR ---
RECEIVED PT ON PRVC 400, 18, +7, 80%. SCREEN IS LOCKED. WHEELS ARE LOCKED AND PLUGGED INTO RED OUTLET. AMBUBAG AT BEDSIDE. ALARMS ARE SET AND AUDIBLE. PT RESTING COMFORTABLY.
[2021-12-07 06:53] LABS: ANION GAP 7.8 (8-16); ASPARTATE AMINOTRANSFERASE 17 U/L (15-37); CARBON DIOXIDE 33.7 mmol/L (21-32); CHLORIDE 104 mmol/L (98-107); CREATININE 0.3 mg/dL (0.6-1.3); GLUCOSE 114 mg/dL (74-106); MAGNESIUM 2.4 mg/dL (1.8-2.4); PHOSPHORUS 4.4 mg/dL (2.5-4.9); POTASSIUM 3.5 mmol/L (3.5-5.1); SODIUM SERUM 142 mmol/L (136-145); TOTAL BILIRUBIN 0.2 mg/dL (0.0-1.0); UREA NITROGEN, BLOOD 21 mg/dL (7-18)
--- NOTE | 2021-12-07 07:05 | NUR ---
RECEIVED BEDSIDE REPORT FROM CHIKA CASPER RN FOR CONTINUITY OF CARE. PT SUPINE IN THE BED, SEDATED, RASS -2. ETT TO VENT, ACPRVC, FIO2 80%, VT 400, R 18, PEEP 7. WHEEZES/CRACKLES BL LUNG SOUNDS. SR W PACS ON BEDSIDE MONITOR. NGT TO L NARE, INFUSING JEVITY AT 50 ML/HR W 200 ML Q6H WATER FLUSH. BOWEL SOUNDS ACTIVE. F/C TO GRAVITY DRAINING CLEAR YELLOW URINE. GENERALIZED WEAKNESS BUE BLE. GLENN PICC INFUSING LEVOPHED AT 2 MCG/MIN AND PROPOFOL AT 45 MCG/KG/MIN. SKIN INTACT, BLANCHABLE REDNESS TO SACRUM. SOFT RESTRAINTS TO BL WRIST, RENEW AT 1800. NO S/S INJURY. SAFETY PRECAUTIONS MET. STANDARD PRECAUTIONS IN PLACE. CALL LIGHT WITHIN REACH. INITIAL ASSESSMENT COMPLETE, WILL CONTINUE TO CLOSELY MONITOR.
--- NOTE | 2021-12-07 07:13 | NUR ---
ENDORSED PATIENT TO DAY SHIFT (TIMOTHY VALLADARES)
[2021-12-07] MEDS: POTASSIUM CHLORIDE 20% 40 MEQ/15 ML UDC GT SCH (08:11)
[2021-12-07] MEDS: PANTOPRAZOLE 40 MG INJ VIAL IVP SCH ×2 (08:11→20:11)
[2021-12-07] MEDS: ENOXAPARIN 40 MG/0.4 ML SYR SUBQ SCH (08:12)
[2021-12-07] MEDS: ASPIRIN 81 MG TAB.CHEW PO SCH (08:12)
--- NOTE | 2021-12-07 08:15 | NUR ---
I SPOKE WITH PAUL AT THE BEDSIDE REGARDING INTERFERING WITH ICU NURSING CARE. PT ON 2 MCG LEVOPHED, ATTEMPTING TO TITRATE DOWN/OFF. 0815 MONITOR SAYS BP IS 84/54. 0833 MONITOR SAYS BP IS 162/71. PT SISTER AT BEDSIDE PERFORMING ROM EXERCISE IN ATTEMPT TO ELEVATE SPO2. EDUCATED REGARDING SPO2, FIO2, VENTILATOR, AND LEVOPHED AND THE IMPORTANCE OF CONSISTENTLY OBTAINING AN ACCURATE BP READING FOR THIS CRITICAL PATIENT. I REQUESTED PT SISTER, PAUL, TO REFRAIN FROM ASSISTING WITH ROM EXERCISES THEY CAN PROVIDE A FALSELY ELEVATED BP READING. PAUL VERBALIZE UNDERSTANDING. WILL CONTINUE TO CLOSELY MONITOR.
--- NOTE | 2021-12-07 08:50 | NUR ---
SEEN AND EXAMINED BY DR BHATTI. PT SISTER AT BEDSIDE, UPDATED REGARDING PT CONDITION.
--- NOTE | 2021-12-07 10:30 | NUR ---
SEEN AND EXAMINED BY DR MARTINI.
[2021-12-07] MEDS: FOAM DRESSING TP SCH (13:16)
--- NOTE | 2021-12-07 14:00 | NUR ---
FEEDING AND FEED TUBE CHANGED. 0ML RESIDUAL. MARK ADMINISTERED. PROPOFOL TUBING CHANGED. LEVOPHED TUBING CHANGED. PT CLEANED AND REPOSITIONED, NO STOOL NOTED. TOLERATED MOVEMENT WELL. SPO2 94%.
--- NOTE | 2021-12-07 15:10 | NUR ---
PT SISTER AT BEDSIDE PERFORMING ROM EXERCISE AGAIN IN ATTEMPT TO ELEVATE PT SPO2 IN 90S. 1446 BP READING 88/49 1501 BP READING 131/62 EDUCATED PAUL AGAIN REGARDING HOW ACTIVITY CAN PROVIDE A FALSE BP READING. I SUGGESTED THAT SHE GO HOME AND GET SOME REST, THAT WE WILL CALL HER IF ANYTHING CHANGES WITH THE PT, AND THAT WE WILL CONTINUE TO MONITOR CLOSELY. SHE VERBALIZE UNDERSTANDING, AND LEFT.
[2021-12-07] MEDS: MIDODRINE 5 MG TAB PO SCH (17:08)
--- NOTE | 2021-12-07 18:40 | NUR ---
PT SISTER PAUL AT BEDSIDE, MOVING PT'S EXTREMITIES AGAIN. EDUCATED REGARDING ACTIVITY AFFECTING BP MONITORING AND LEVEL OF SEDATION AFFECTING PT'S COMFORT. I REQUESTED THAT SHE NOT MOVE THE PT AROUND. PAUL VERBALIZED UNDERSTANDING.
--- NOTE | 2021-12-07 22:59 | NUR ---
PATIENT SEDATED ON PROPOFOL 45 MCG AND LEVOPHED AT 1.5 MCG ON MONITOR SINU B/P 104/64 RASS NEG 2 PATIENT LUNGS DIMINISH ET-TUBE RATE 18, FI02 80%, TV400, PEEP 7. SAT 93%. HAS NGT JEVITY 50 HOUR NO RESIDUAL 2000. HAS 200CC WATER FLUSH EVERY SIX HOURS.PATIENT HAS WRIST RESTRAINTS ON BOTH WRIST. NO SIGNS OF DISTRESS NOTED. PATIENT HAS F/C DRAINING YELLOW URINE.
[2021-12-08] VITALS (32 sets, daily range): BP systolic 89–128; BP diastolic 48–64
[2021-12-08] MEDS: PROPOFOL 1000 MG/100 ML PREMIX 100 ML IV PRN ×2 (00:50→06:30)
[2021-12-08] MEDS: HYDRAGUARD CREAM TP SCH ×2 (01:00→12:19)
[2021-12-08] MEDS: ALBUTEROL SULFATE/IPRATROPIU 3 ML SOL IH SCH ×6 (03:10→22:22)
[2021-12-08] MEDS: NOREPINEPHRINE 8 MG in DEXTROSE 5% 250 ML IV PRN (03:45)
[2021-12-08] MEDS: PIPERACILLIN/TAZOBACTAM 3.375 GM in DEXTROSE 5% 50 ML IV SCH ×3 (05:00→20:58)
[2021-12-08 05:58] LABS: BASOPHILS % (AUTO) 0.7 % (0.0-2.0); EOSINOPHILS # (AUTO) 0.2 K/uL (0-0.4); EOSINOPHILS % (AUTO) 4.8 % (0.0-4.0); HEMATOCRIT 23.7 % (36-48); HEMOGLOBIN 7.6 g/dL (12.0-16.0); LYMPHOCYTES # (AUTO) 0.6 K/uL (2.5-16.5); LYMPHOCYTES % (AUTO) 12.2 % (20.5-51.1); MEAN CORPUSCULAR HEMOGLOBIN 28 pg (27-31); MEAN CORPUSCULAR HGB CONC 32 g/dL (33-37); MEAN CORPUSCULAR VOLUME 87.4 fL (80-94); MONOCYTES # (AUTO) 0.5 K/uL (0.8-1.0); MONOCYTES % (AUTO) 11.2 % (1.7-9.3); NEUTROPHILS # (AUTO) 3.3 K/uL (1.8-7.7); NEUTROPHILS % (AUTO) 71.1 % (42.2-75.2); PLATELET COUNT (AUTO) 245 K/uL (140-450); RED BLOOD CELL COUNT(AUTO) 2.71 MIL/uL (4.20-5.40); WHITE BLOOD COUNT (AUTO) 4.6 K/uL (4.8-10.8)
[2021-12-08 06:02] LABS: ANION GAP 7.5 (8-16); CARBON DIOXIDE 33.2 mmol/L (21-32); CHLORIDE 105 mmol/L (98-107); CREATININE 0.3 mg/dL (0.6-1.3); GLUCOSE 114 mg/dL (74-106); POTASSIUM 3.7 mmol/L (3.5-5.1); SODIUM SERUM 142 mmol/L (136-145); UREA NITROGEN, BLOOD 25 mg/dL (7-18)
[2021-12-08 06:06] LABS: MAGNESIUM 2.2 mg/dL (1.8-2.4); PHOSPHORUS 4.6 mg/dL (2.5-4.9)
[2021-12-08] MEDS: LEVOTHYROXINE 0.05 MG TAB PO SCH (06:30)
--- NOTE | 2021-12-08 07:15 | NUR ---
RECEIVED REPORT FROM FIELD PLACEMENT DIRECTOR.
--- NOTE | 2021-12-08 07:41 | NUR ---
RECEIVED ON A [employer] R860 VENTILATOR PLUGGED INTO RED OUTLET TOLERATING WELL WITHOUT ADVERSE REACTIONS NOTED TO AN ENDOTRACHEAL TUBE #7.5 SECURED AT 21cm TEETH/GUM LINE WITH AN ANCHOR FAST CUFF PRESSURE CHECKED NOTED AMBU BAG AT BEDSIDE RESTING COMFORTABLY EASILY AWAKENS GOOD CHEST RISE ENDOTRACHEAL SUCTION FOR MODERATE SEMI THICK YELLOW WITH BLOOD TINGE SECRETIONS AND SMALL SCATTERED BLOOD CLOTS AIRWAY PATENT REVIEWED BLOOD PRESSURE AND VASOCONSTRICTOR MED (LEVOPHED) VIA IV INCREASED PEEP TO 8cmH2O TO IMPROVE OXYGEN SATURATION REVIEWED VENTILATOR SETTINGS WITH MELY/COMMUNICATION PROFESSOR
--- NOTE | 2021-12-08 08:00 | NUR ---
PATIENT SPONTANEOUSLY OPENS EYES. PUPILS EQUAL AND REACTIVE TO LIGHT. WEAK BUSINESS APPLICATIONS ANALYST ON LEFT TO COMMAND. HEART SOUNDS REGULAR. MONITOR SR WITHOUT ECTOPY. GLENN PICC LINE WITH PROPOFOL AT 45MCG/KG/MIN, LEVOPHED AT 1.5MCG/MIN DECREASED TO 1MCG/MIN. NS AT 5ML/HOUR. ETT TO VENT. VT 400/FIO2 80%/RATE 18/ PEEP 8. SAO2 94%. ANTERIOR/LATERAL BREATH SOUNDS CLEAR TO AUSCULTATION. NGT LEFT NARE WITH JEVITY AT 50ML/HR. NO RISIDUAL. HYPOACTIVE BOWEL SOUNDS. MILLER IN PLACE WITH CLEAR YELLOW URINE.
--- NOTE | 2021-12-08 09:00 | NUR ---
DR. BHATTI HERE TO SEE PATIENT AND UPDATED. DR. BHATTI DECREASED FIO2 TO 70%. SPOKE WITH SISTER REGARDING THE POSSIBLE NEED FOR TRACHEOSTOMY.
[2021-12-08] MEDS: POTASSIUM CHLORIDE 20% 40 MEQ/15 ML UDC GT SCH (09:13)
[2021-12-08] MEDS: PANTOPRAZOLE 40 MG INJ VIAL IVP SCH ×2 (09:13→21:05)
[2021-12-08] MEDS: ASPIRIN 81 MG TAB.CHEW PO SCH (09:14)
[2021-12-08] MEDS: MIDODRINE 5 MG TAB PO SCH ×3 (09:14→17:24)
[2021-12-08] MEDS: ENOXAPARIN 40 MG/0.4 ML SYR SUBQ SCH (09:15)
--- NOTE | 2021-12-08 10:15 | NUR ---
DR. MARTINI HERE TO SEE PATIENT. UPDATED ON STATUS AND LEVOPHED RATE AND WEANING.
--- NOTE | 2021-12-08 10:19 | NUR ---
ON OR ABOUT 904 PER SEPTEMBER/UPSCALE SECURITY OFFICER DR. PANKAJ VITAL MD DECREASED FIO2 TO 70%; SEDATED STABLE EQUAL CHEST RISE GOOD AERATION THROUGHOUT BILATERAL LUNG SHERIFF AIRWAY PATENT SATURATION 95% ON FIO2 OF 70% PEEP 8cmH2O TITRATED FIO2 TO 65% FOREMENTIONED RN NOTIFIED
--- NOTE | 2021-12-08 10:30 | NUR ---
RT DECREASED FIO2 TO 65%. SAO2 94%. MINIMAL SECRETIONS WITH SUCTIONING. DECREASED LEVOPHED TO 0.5MCG/MIN. MAP 65-75. PROPOFOL DECREASED TO 40MCG/KG/MIN.
--- NOTE | 2021-12-08 11:40 | NUR ---
SEDATED EASILY AWAKENS WITH MOVEMENT EQUAL CHEST RISE GOOD AERATION THROUGHOUT BILATERAL LUNG SHERIFF AIRWAY PATENT REVIEWED ABG'S 12/02 AND 12/04; TOTAL RESPIRATORY EQUATING TO MECHANICAL RATE; DECREASED RATE TO 16 SEPTEMBER/SENIOR UX DEVELOPER NOTIFIED
[2021-12-08] MEDS: FOAM DRESSING TP SCH (12:19)
--- NOTE | 2021-12-08 12:45 | NUR ---
RT DECREASED VENT RESP RATE TO 16. SAO2 94%. REPOSITIONED PATIENT, SAO2 DROP TO 80'S. FIO2 100% FOR ACTIVITY. SAO2 RECOVERED TO 92%. PATIENT OPENS EYES SPONTANEOUSLY AND MOVES LEFT ARM. RASS -2.
--- NOTE | 2021-12-08 13:20 | NUR ---
RESTING WELL PATIENT POSITION ON RIGHT SIDE GOOD CHEST RISE AND AERATION THROUGHOUT BILATERAL LUNG SHERIFF AIRWAY PATENT
--- NOTE | 2021-12-08 15:30 | NUR ---
NO APPARENT DISTRESS NOTED EQUAL CHEST RISE ENDOTRACHEAL SUCTION FOR SMALL THIN YELLOW SECRETIONS AIRWAY PATENT SATURATION 95% ON FIO2 OF 65% PEEP 8cmH2O POST HHN THERAPY TITRATED FIO2 TO 60% RN NOTIFIED Addendum: 12/08/21 at 1547 by Jakob Santamaria RT SISTER AT BEDSIDE
--- NOTE | 2021-12-08 15:45 | NUR ---
DC PLANN[age] YRS OLD FEMALE PATIENT WAS ADMITTED FROM [facility] WITH A DX OF NSTEMI, CHF EXACERBATION. PATIENT INTUBATED ON THE 11/30/21 AND SEDATED FIO2 60% PLAN TO PERFORM CPAP TRIAL , ON PROPOFOL FOR SEDATION POOR PROGNOSIS MD UPDATED PT'S SISTER . CARDIO FOLLOWING. CM TO FOLLOW Addendum: 12/10/21 at 1603 by Renu Corbin RN DC PLANNING: REMAINS INTUBATED FIO2 60% LARGE RIGHT PLEURAL EFFUSION PENDING THORACENTESIS. CONTINUE IV LASIX, ZOSYN IV ABX AND PROPOFOL DRIP. POOR PROGNOSIS PLANING TO TRACH. UPDATED [facility]. CM TO FOLLOW Addendum: 12/14/21 at 1055 by Renu Corbin RN DC PLANNING: PATIENT STILL INTUBATED SEDATED CONTINUES ON THE PRECEDEX, FIO2 35% . CONTINUED CPAP TRIAL , POSSIBLE BRONCO TODAY. CXR RIGHT UPPER LOBE COLLAPSE BILATERAL INFILTRATES.CONTINUED LASIX IV . PROGNOSIS POOR , DISCUSSED WITH SISTER STILL NOT DECIDING FOR TRACH. CM TO FOLLOW Addendum: 12/16/21 at 1124 by Renu Corbin RN DC PLANNING: EXTUBATED ON 12/1121 AT 15:20 ON HF 32L/NC FIO2 50%. AWAKE ALERT AND ORIENTED X 3. AWAITING FOR SWALLOWING EVAL. CONTINUE NGT FEEDING AND ZOSYN. DC PLAN TO DOWNGRADE TO TELE. CM TO FOLLOW Addendum: 12/21/21 at 1413 by Renu Corbin RN DC PLANNING: ETHAN MET PT'S SISTER DISCUSSED THE DC PLAN HOME WITH HOME HEALTH , PT'S SISTER STATED SHE HAS LOTS OF FRIENDS, NEIGHBORS AND STILL DISAGREE TO SEND HER TO [facility]. SHE AGREED WITH HOME HEALTH. OMAR GENTILE SPOKE WITH KASHIF ETHAN STATED SHE ARRANGED HOME HEALTH BUT THE EARLIEST VISIT IS ON TUESDAY. [employer] WILL DELIVER HOME O2 TO HOME AND HOSPITAL. DC PLAN 12/22 HOME WITH HOME HEALTH. CM TO FOLLOW. Addendum: 12/23/21 at 1114 by Renu Corbin RN DC PLANNING: CALLED [facility] STATED THEY CAN NOT DELIVER PORTABLE O2 AT HOME, IT HAS TO BE TO HOME AND TO TAKE THE OLD ONE. CALLED FABIÁN AT [facility] STATED NOT AUTHORIZING THE STAY BECAUSE PT HAS DC ORDER YESTERDAY. I EXPLAINED THE DELAY WITH [employer]. PER FABIÁN WILL FOLLOW UP WITH [facility] AND REVIEW THE CASE THAT HER SISTER CALLED THAT PORTABLE O2 IS NOT WORKING. FABIÁN LONG PROVIDE THE AUTH [id number] FOR TRANSPORT WITH [facility]. ARRANGED TRANSPORT WITH [facility] BAG MAKER TIME BETWEEN 12-1 PM. NOTIFIED RN. LONG TO FOLLOW
--- NOTE | 2021-12-08 16:00 | NUR ---
RT DECREASED FIO2 TO 60%. SAO2 94%. PROPOFOL DECREASED TO 35MCG/KG/MIN. RASS -2.
--- NOTE | 2021-12-08 17:52 | NUR ---
NO DISTRESS NOTED EQUAL CHEST RISE GOOD AERATION THROUGHOUT BILATERAL LUNG SHERIFF AIRWAY PATENT SISTER AT BEDSIDE
--- NOTE | 2021-12-08 19:20 | NUR ---
REPORT GIVEN TO TIMOTHY ZAVALETA. PATIENT STABLE.
--- NOTE | 2021-12-08 19:30 | NUR ---
RECEIVED REPORT FROM MATEO. PT IS SLEEPING ON ASSEESSMENT. PT AWAKENED AND INTRODUCTION WERE MADE. PT STATES HE DOESN'T WANT TO EAT; HE HAS NO APPETITE. HE DID REQUEST A CUP OF BROOTH. CHICKEN BROTH WAS PREPARED AND GIVEN TO THE PATIENT. DURING THE ASSESSMENT PT COMPLAINED OF HEART BURN. "IT'S REALLY BAD".WILL CALL DR. RIZO FOR ORDERS.
--- NOTE | 2021-12-08 19:30 | NUR ---
Patient seem to be asleep at this time. Patient vital signs HR 64 BP 98/54 RR 16 O2 93. Patient afebrile with temperature of 97.2. Lungs clear upon auscultation on all four quadrants. Hypoactive bowel sounds. +1 edema on right arm. No edema on left arm and lower extremities. Vent settings fi02 60 VT 400 RR 16 PEEP 8.
--- NOTE | 2021-12-08 19:30 | NUR ---
Patient residual 30 ml.
--- NOTE | 2021-12-08 19:45 | NUR ---
CALL PLACED TO . 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 Addendum: 12/09/21 at 0123 by Agency Caryn AGUIRRE RN SHAMIR PT, INTENDED FOR IZ
[2021-12-09] VITALS (29 sets, daily range): BP systolic 84–119; BP diastolic 47–62
[2021-12-09] MEDS: HYDRAGUARD CREAM TP SCH ×2 (01:00→13:10)
--- NOTE | 2021-12-09 01:00 | NUR ---
RESIDENT'S SP02 UNSTABLE AND MOSTLY STAYS AROUND 85%. RT INCREASED FI02 TO 100%.
--- NOTE | 2021-12-09 02:00 | NUR ---
PATIENT'S FI02 100% AND TOLERATING WELL. PATIENT SP02 MAINLY STAYS ON 90% OR HIGHER.
[2021-12-09] MEDS: PROPOFOL 1000 MG/100 ML PREMIX 100 ML IV PRN (02:21)
--- NOTE | 2021-12-09 03:34 | NUR ---
PATIENT REPOSITIONED EVERY 2 HOURS. PATIENT'S 02 DECREASES TO LOW 70'S WHEN LYING ON HER RIGHT SIDE. PATIENT IS ABLE TO AMBULATE LEFT HAND AND OPENS EYES SPONTANEOUSLY.
[2021-12-09] MEDS: ALBUTEROL SULFATE/IPRATROPIU 3 ML SOL IH SCH ×5 (03:57→19:20)
[2021-12-09] MEDS: PIPERACILLIN/TAZOBACTAM 3.375 GM in DEXTROSE 5% 50 ML IV SCH ×3 (04:59→20:43)
[2021-12-09] MEDS: LEVOTHYROXINE 0.05 MG TAB PO SCH (05:32)
[2021-12-09 05:33] LABS: ANION GAP 6.6 (8-16); CARBON DIOXIDE 32.4 mmol/L (21-32); CHLORIDE 105 mmol/L (98-107); CREATININE 0.3 mg/dL (0.6-1.3); GLUCOSE 122 mg/dL (74-106); SODIUM SERUM 140 mmol/L (136-145); UREA NITROGEN, BLOOD 17 mg/dL (7-18)
--- NOTE | 2021-12-09 06:22 | NUR ---
PATIENT WEIGHT IS 60KG. PREMIUM CARD CANCELLATION CLERK MILLER CATHETER OUTPUT - 800ML. FI02 STILL ON 100% ASSIST. SP02 STAYING ABOVE 90'S.
--- NOTE | 2021-12-09 07:10 | NUR ---
RECEIVED REPORT FROM TREMAYNE HORN AND MEGHANN.
--- NOTE | 2021-12-09 07:45 | NUR ---
PT A&OX0, PERRLA, RASS -2, FOLLOWS COMMANDS, ABLE TO TRACK. ETT TO VENT, AC/PRVC, VT 400, FIO2 100%, RR 16, PEEP 5. SR ON MONITOR. PICC TO GLENN INFUSING PROPOFOL @35MCG/KG/MIN AND NS @5ML/HR, PATENT AND ASYMPTOMATIC. NGT TO LEFT NARE RUNNING JEVITY AT 50ML/HR. RESIDUAL VOLUME IS 5ML. F/C TO GRAVITY DRAINING CLEAR YELLOW URINE. SACRAL AREA IS REDDENED AND NONBLANCHABLE, PROTECTIVE FOAM DRESSING IN PLACE, OTHERWISE SKIN IS INTACT. 2+ EDEMA TO RIGHT UPPER EXTREMITY. BILATERAL SOFT WRIST RESTRAINTS IN PLACE TO BUE, NO S/S OF INJURY. SAFETY PRECAUTIONS IN PLACE. BED IN LOWEST POSITION, CALL LIGHT WITHIN REACH.
--- NOTE | 2021-12-09 08:15 | NUR ---
SISTER AT BEDSIDE.
--- NOTE | 2021-12-09 08:15 | NUR ---
SEEN AND EXAMINED BY DR. MARTINI. ORDERS RECEIVED.
[2021-12-09] MEDS: POTASSIUM CHLORIDE 20% 40 MEQ/15 ML UDC GT SCH (08:41)
[2021-12-09] MEDS: ASPIRIN 81 MG TAB.CHEW PO SCH (08:42)
[2021-12-09] MEDS: MIDODRINE 5 MG TAB PO SCH ×3 (08:42→16:51)
[2021-12-09] MEDS: PANTOPRAZOLE 40 MG INJ VIAL IVP SCH ×2 (08:42→21:17)
[2021-12-09] MEDS: ENOXAPARIN 40 MG/0.4 ML SYR SUBQ SCH (08:44)
[2021-12-09 09:53] LABS: BASOPHILS % (AUTO) 0.8 % (0.0-2.0); EOSINOPHILS # (AUTO) 0.2 K/uL (0-0.4); EOSINOPHILS % (AUTO) 3.6 % (0.0-4.0); HEMATOCRIT 23.6 % (36-48); HEMOGLOBIN 7.6 g/dL (12.0-16.0); LYMPHOCYTES # (AUTO) 0.5 K/uL (2.5-16.5); LYMPHOCYTES % (AUTO) 7.6 % (20.5-51.1); MEAN CORPUSCULAR HEMOGLOBIN 28 pg (27-31); MEAN CORPUSCULAR HGB CONC 32 g/dL (33-37); MEAN CORPUSCULAR VOLUME 88.9 fL (80-94); MONOCYTES # (AUTO) 0.5 K/uL (0.8-1.0); MONOCYTES % (AUTO) 7.7 % (1.7-9.3); NEUTROPHILS # (AUTO) 4.9 K/uL (1.8-7.7); NEUTROPHILS % (AUTO) 80.3 % (42.2-75.2); PLATELET COUNT (AUTO) 235 K/uL (140-450); RED BLOOD CELL COUNT(AUTO) 2.66 MIL/uL (4.20-5.40); RED CELL DISTRIBUTION WIDTH 19.5 % (11.6-13.7); WHITE BLOOD COUNT (AUTO) 6.1 K/uL (4.8-10.8)
--- NOTE | 2021-12-09 10:10 | NUR ---
STABLE NO APPARENT DISTRESS NOTED GOOD CHEST RISE AND AERATION THROUGHOUT BILATERAL LUNG SHERIFF AIRWAY PATENT
--- NOTE | 2021-12-09 10:28 | NUR ---
COURTESY CALL TO DR. PANKAJ BHATTI AT [facility] [phone] TO REVIEW ABG SAMPLE REPORT ORDERED BY DR. DILCIA STEPHENS/EXCHANGE TO GURPREET THOMPSON MD PATIENT INFORMATION AND CALL BACK NUMBER [id number]
--- NOTE | 2021-12-09 11:05 | NUR ---
ON OR ABOUT THIS TIME; VIA JOHANA RENDONP CALL BACK FROM DR. PANKAJ BHATTI NO CHANGES AT THIS TIME MD MALCOLM BE MAKING ROUNDS AT A LATER TIME
--- NOTE | 2021-12-09 11:45 | NUR ---
AWAKE STABLE EQUAL CHEST RISE NO PULMONARY DISTRESS NOTED ENDOTRACHEAL SUCTION FOR LARGE SEMI THICK PALE YELLOWS SECRETIONS AIRWAY PATENT SATURATION 97% ON FIO2 TO 90% PEEP 8cmH2O POST HHN THERAPY TITRATED FIO2 TO 80% RN NOTIFIED WORLD LANGUAGE TEACHER TO MONITOR AND TITRATE FIO2 TOLERATED Addendum: 12/09/21 at 1353 by Jakob Santamaria RT SISTER AT [facility]
[2021-12-09] MEDS: FOAM DRESSING TP SCH (13:10)
--- NOTE | 2021-12-09 13:41 | NUR ---
SEEN AND EXAMINED BY DR. CERRATO. ORDERS RECEIVED.
--- NOTE | 2021-12-09 13:45 | NUR ---
WOUND CARE RE-EVALUATION NOTE: NO NEW DISCOVERY OF SKIN ISSUE. 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 FOAM DRESSING IN PLACE, AREA OFFLOADING. POC DISCUSSED WITH PRIMARY RN WILL CONTINUE HYDRAGUARD AND FOAM DRESSING. SISTER AT BEDSIDE PROVIDES ROM TO HANDS AND LEGS.
--- NOTE | 2021-12-09 14:00 | NUR ---
SEEN AND EXAMINED BY DR. BHATTI. ORDERS RECEIVED.
--- NOTE | 2021-12-09 14:03 | NUR ---
ON OR ABOUT THIS TIME SUDHIR BHATTI TITRATE FIO2 TO 70% ORDERS INITIATED BY GUNSMITH APPRENTICE
--- NOTE | 2021-12-09 14:14 | NUR ---
12/09/21 RD FOLLOW UP COMPLETED PLEASE REFER TO NUTRITION ASSESSMENT UNDER CARE ACTIVITY FOR ESTIMATED NUTRITIONAL NEEDS. 1. CONTINUE JEVITY 1.2 @ 50 ML/HR WITH MARK BID -FWF: 200 ML Q6H OR PER MD -WITH MARK BID, PT WILL RECEIVED 100% OF ESTIMATED NUTRITIONAL NEEDS 2. MONITOR GI SYMPTOMS AND WEIGHT CHANGES 3. RD TO FOLLOW-UP 2-3 DAYS, HIGH RISK SAMUEL MODI RD
--- NOTE | 2021-12-09 14:30 | NUR ---
ULTRASOUND TECHS AT BEDSIDE FOR CHEST ULTRASOUND.
[2021-12-09] MEDS: FUROSEMIDE 20 MG/2 ML VIAL IVP SCH (14:45)
--- NOTE | 2021-12-09 15:05 | NUR ---
SEDATED EASILY AWAKENS GOOD CHEST RISE ENDOTRACHEAL SUCTION FOR LARGE SEMI THICK PALE YELLOW SECRETIONS AIRWAY PATENT
--- NOTE | 2021-12-09 17:32 | NUR ---
STABLE NO RESPIRATORY DISTRESS NOTED EQUAL CHEST RISE ENDOTRACHEAL SUCTION FOR LARGE SEMI THICK PALE YELLOW SECRETIONS AIRWAY PATENT Addendum: 12/09/21 at 1759 by Jakob Santamaria RT SATURATION 97% ON FIO2 OF 70% PEEP 8cmH2O TITRATED FIO2 TO 65% MASOOD/SALES AND DISTRIBUTION CLERK NOTIFIED
--- NOTE | 2021-12-09 18:00 | NUR ---
PICC DRESSING CHANGED. PATENT AND ASYMPTOMATIC.
--- NOTE | 2021-12-09 19:35 | NUR ---
GAVE REPORT TO NIGHT TIMOTHY DE JESUS FOR CONTINUITY OF CARE.
[2021-12-09] MEDS ORDERED: DOCUSATE 100 MG/10 ML UDC GT PRN (19:40)
--- NOTE | 2021-12-09 19:42 | NUR ---
RECEIVED REPORT FROM AM SHIFT RN. PATIENT ASLEEP AT THIS TIME. VS HR - 70 BP - 118/69 RR - 17 SP02 - 99. VENT SETTINGS FI02 - 65 VT - 400 RATE - 16 PEEP - 8. PATIENT ON PROPOFOL - 30MCG/KG/MIN. JEVITY 50ML/HR. MILLER INTACT AND PATENT. 1400ML OUTPUT REPORTED FROM AM SHIFT.
--- NOTE | 2021-12-09 20:30 | NUR ---
UPON LUNG AUSCULTATION, MILD WHEEZING SOUND ON LEFT UPPER AND LOWER QUADRANT. MILD WHEEZING RIGHT UPPER QUADRANT, LUNGS CLEAR RIGHT LOWER QUADRANT.
--- NOTE | 2021-12-09 20:31 | NUR ---
PATIENT'S PROPOFOL BOTTLE AND TUBING CHANGED. RATE STILL ON 30MCG/KG/MIN. PATIENT RESIDUAL 10ML.
--- NOTE | 2021-12-09 21:00 | NUR ---
2100 MEDICATIONS GIVEN. PICC LINE INTACT WITH NO COMPLICATIONS AT THIS TIME.
--- NOTE | 2021-12-09 22:02 | NUR ---
SISTER CALLED FOR AN UPDATE. TEMPERATURE 97.1 AND BP 91/54. PATIENT STABLE AT THIS TIME.
[2021-12-10] VITALS (31 sets, daily range): BP systolic 80–147; BP diastolic 42–83
--- NOTE | 2021-12-10 00:13 | NUR ---
PATIENT AWAKE AND SOMEWHAT RESTLESS. PROPOFOL INCREASED TO 35MCG/KG/MIN. RESTRAINTS REASSURED.
[2021-12-10] MEDS: ALBUTEROL SULFATE/IPRATROPIU 3 ML SOL IH SCH ×6 (00:14→19:21)
[2021-12-10] MEDS: HYDRAGUARD CREAM TP SCH ×2 (01:23→13:23)
--- NOTE | 2021-12-10 03:10 | NUR ---
NEW PROPOFOL BOTTLE INFUSING. DRIP RATE IS AT 45MCG/KG/MIN.
[2021-12-10] MEDS: PIPERACILLIN/TAZOBACTAM 3.375 GM in DEXTROSE 5% 50 ML IV SCH ×2 (05:15→13:14)
[2021-12-10 05:35] LABS: BASOPHILS % (AUTO) 0.6 % (0.0-2.0); EOSINOPHILS # (AUTO) 0.2 K/uL (0-0.4); EOSINOPHILS % (AUTO) 2.6 % (0.0-4.0); HEMATOCRIT 22.5 % (36-48); HEMOGLOBIN 7.3 g/dL (12.0-16.0); LYMPHOCYTES # (AUTO) 0.5 K/uL (2.5-16.5); LYMPHOCYTES % (AUTO) 6.3 % (20.5-51.1); MEAN CORPUSCULAR HEMOGLOBIN 29 pg (27-31); MEAN CORPUSCULAR HGB CONC 33 g/dL (33-37); MEAN CORPUSCULAR VOLUME 88.7 fL (80-94); MONOCYTES # (AUTO) 0.3 K/uL (0.8-1.0); MONOCYTES % (AUTO) 4.8 % (1.7-9.3); NEUTROPHILS # (AUTO) 6.1 K/uL (1.8-7.7); NEUTROPHILS % (AUTO) 85.7 % (42.2-75.2); PLATELET COUNT (AUTO) 215 K/uL (140-450); RED BLOOD CELL COUNT(AUTO) 2.53 MIL/uL (4.20-5.40); RED CELL DISTRIBUTION WIDTH 19.3 % (11.6-13.7); WHITE BLOOD COUNT (AUTO) 7.2 K/uL (4.8-10.8)
[2021-12-10 06:20] LABS: ANION GAP 5.8 (8-16); CARBON DIOXIDE 34.1 mmol/L (21-32); CHLORIDE 103 mmol/L (98-107); CREATININE 0.3 mg/dL (0.6-1.3); GLUCOSE 125 mg/dL (74-106); POTASSIUM 3.9 mmol/L (3.5-5.1); SODIUM SERUM 139 mmol/L (136-145); UREA NITROGEN, BLOOD 14 mg/dL (7-18)
[2021-12-10] MEDS: LEVOTHYROXINE 0.05 MG TAB PO SCH (06:27)
--- NOTE | 2021-12-10 06:37 | NUR ---
PT/PTT/INR COLLECTED FROM PICC LINE BY MEGHANN AGUIRRE AND WALKED OVER TO LAB FOR STAT ORDER. PT PENDING LAB FOR ORDERED PROCEDURE THORACENTESIS THIS AM BY DR. BHATTI.
--- NOTE | 2021-12-10 07:23 | NUR ---
REPORT TO AM SHIFT TIMOTHY GOTTLIEB. PATIENT ASLEEP AND STABLE AT THIS TIME. 1 MEDIUM SIZED BM. RESIDUAL 5ML. URINE OUTPUT 780ML. WEIGHT 56.8KG.
[2021-12-10 07:31] LABS: PROTHROMBIN TIME 9.9 secs (10.8-13.4)
[2021-12-10] MEDS: FUROSEMIDE 20 MG/2 ML VIAL IVP SCH ×2 (09:00→17:29)
[2021-12-10] MEDS: ASPIRIN 81 MG TAB.CHEW PO SCH (09:00)
[2021-12-10] MEDS: POTASSIUM CHLORIDE 20% 40 MEQ/15 ML UDC GT SCH (09:00)
[2021-12-10] MEDS: PANTOPRAZOLE 40 MG INJ VIAL IVP SCH ×2 (09:00→21:18)
[2021-12-10] MEDS: MIDODRINE 5 MG TAB PO SCH ×3 (09:00→17:29)
[2021-12-10] MEDS: ENOXAPARIN 40 MG/0.4 ML SYR SUBQ SCH (09:00)
[2021-12-10 09:07] LABS: LACTATE DEHYDROGENASE 151 IU/L (119-226)
--- NOTE | 2021-12-10 10:44 | NUR ---
PT PLACED ON SBT WITH CPAP 5 AND PS OF 12 DUE TO PT NOT TOLERATING A PREVIOUS PS OF 10 VERY WELL. ALARMS SET AND FUNCTIONING. 02 OF 60% AND NURSES MADE AWARE OF THE TRIAL START TIME.
--- NOTE | 2021-12-10 11:49 | NUR ---
PT RETURNED TO FULL SUPPORT ON VENT DUE TO LOW VT, DECREASED SPO2 AND INCREASED RR >32. CHARGE NURSE MADE AWARE. WILL CONTINUE TO MONITOR.
[2021-12-10] MEDS: FOAM DRESSING TP SCH (13:22)
--- NOTE | 2021-12-10 15:21 | NUR ---
Dr case at bedside performed parasintesis 1.5L of fluid removed Pt tolerated procedure
--- NOTE | 2021-12-10 19:30 | NUR ---
RECEIVED REPORT FROM RENETTA AGUIRRE. PT'S SISTER AT THE BEDSIDE .PT IS WIDE AWAKE BUT NO FACIAL GRIMACE OR FROWN ON THE FOREHEAD. SHE APPEARS COMFORTABLE.
[2021-12-11] VITALS (33 sets, daily range): BP systolic 86–141; BP diastolic 42–74
[2021-12-11] MEDS: ALBUTEROL SULFATE/IPRATROPIU 3 ML SOL IH SCH ×8 (00:02→22:49)
[2021-12-11] MEDS: PROPOFOL 1000 MG/100 ML PREMIX 100 ML IV PRN ×2 (01:35→09:00)
[2021-12-11] MEDS: HYDRAGUARD CREAM TP SCH ×2 (03:11→12:24)
[2021-12-11 04:42] LABS: APPEARANCE,SPUN,BODY FLUID CLEAR (CLEAR); APPEARANCE,UNSPUN,BODY FLUID CLEAR (CLEAR); COLOR,BODY FLUID LT YELLOW (LT YELLOW); RBC, BODY FLUID 653 /cu. mm.; TOTAL VOLUME,BODY FLUID 10 mL; WBC, BODY FLUID 0 /cu. mm.
[2021-12-11 05:09] LABS: GLUCOSE,BODY FLUID 129 mg/dL
[2021-12-11 05:10] LABS: SPECIMENTYPE,BODY FLUID NK
[2021-12-11 05:50] LABS: ANION GAP 7.7 (8-16); CARBON DIOXIDE 32.2 mmol/L (21-32); CHLORIDE 101 mmol/L (98-107); CREATININE 0.3 mg/dL (0.6-1.3); GLUCOSE 158 mg/dL (74-106); POTASSIUM 3.9 mmol/L (3.5-5.1); SODIUM SERUM 137 mmol/L (136-145); UREA NITROGEN, BLOOD 13 mg/dL (7-18)
[2021-12-11] MEDS: LEVOTHYROXINE 0.05 MG TAB PO SCH (05:51)
--- NOTE | 2021-12-11 07:30 | NUR ---
Received report from RN. Pt intubated on ventilator, sedated with diprivan, arousable. Pt in no signs of pain or distress. On levophed drip. NGT with jevity tube feeding, tolerating well, little to no residual. Lopez in place draining yellow urine to gravity.
[2021-12-11 08:12] LABS: BASOPHILS % (AUTO) 0.8 % (0.0-2.0); EOSINOPHILS # (AUTO) 0.1 K/uL (0-0.4); EOSINOPHILS % (AUTO) 2.4 % (0.0-4.0); HEMATOCRIT 23.5 % (36-48); LYMPHOCYTES # (AUTO) 0.4 K/uL (2.5-16.5); LYMPHOCYTES % (AUTO) 7.3 % (20.5-51.1); MEAN CORPUSCULAR HEMOGLOBIN 30 pg (27-31); MEAN CORPUSCULAR HGB CONC 34 g/dL (33-37); MEAN CORPUSCULAR VOLUME 88.4 fL (80-94); MONOCYTES # (AUTO) 0.2 K/uL (0.8-1.0); MONOCYTES % (AUTO) 4.4 % (1.7-9.3); NEUTROPHILS # (AUTO) 4.7 K/uL (1.8-7.7); NEUTROPHILS % (AUTO) 85.1 % (42.2-75.2); PLATELET COUNT (AUTO) 207 K/uL (140-450); RED BLOOD CELL COUNT(AUTO) 2.65 MIL/uL (4.20-5.40); RED CELL DISTRIBUTION WIDTH 19.7 % (11.6-13.7); WHITE BLOOD COUNT (AUTO) 5.5 K/uL (4.8-10.8)
[2021-12-11] MEDS: PANTOPRAZOLE 40 MG INJ VIAL IVP SCH ×2 (08:33→21:34)
[2021-12-11] MEDS: MIDODRINE 5 MG TAB PO SCH ×3 (08:33→17:00)
[2021-12-11] MEDS: ASPIRIN 81 MG TAB.CHEW PO SCH (08:33)
[2021-12-11] MEDS: FUROSEMIDE 20 MG/2 ML VIAL IVP SCH ×2 (08:34→17:00)
[2021-12-11] MEDS: POTASSIUM CHLORIDE 20% 40 MEQ/15 ML UDC GT SCH (08:34)
[2021-12-11] MEDS: ENOXAPARIN 40 MG/0.4 ML SYR SUBQ SCH (08:36)
--- NOTE | 2021-12-11 10:00 | NUR ---
Dr. Edilma booker, updated pt and sister regarding plan of care.
--- NOTE | 2021-12-11 11:00 | NUR ---
PT PLACED ON SBT CPAP 5 PS 10 AND FIO2 40%. PT IS AWAKE AND ALERT. VENT ALARMS SET APPROPRIATELY. ICU CHARGE MADE AWARE. WILL CONTINUE TO MONITOR.
--- NOTE | 2021-12-11 11:28 | NUR ---
12/11/21 RD FOLLOW UP COMPLETED PLEASE REFER TO NUTRITION ASSESSMENT UNDER CARE ACTIVITY FOR ESTIMATED NUTRITIONAL NEEDS. 1. CONTINUE JEVITY 1.2 @ 50 ML/HR WITH MARK BID TOLERATED -FWF: 200 ML Q6H OR PER MD -WITH MARK BID, PT WILL RECEIVED 100% OF ESTIMATED NUTRITIONAL NEEDS 2. MONITOR GI SYMPTOMS AND WEIGHT CHANGES 3. RD TO FOLLOW-UP 3-5 DAYS, MODERATE RISK (DOWNGRADED D/T PT TOLERATING TF WELL WITH NO GI SYMPTOMS) SAMUEL MODI RD
[2021-12-11] MEDS: FOAM DRESSING TP SCH (12:24)
[2021-12-11] MEDS: PIPERACILLIN/TAZOBACTAM 3.375 GM in DEXTROSE 5% 50 ML IV SCH ×2 (12:50→21:35)
--- NOTE | 2021-12-11 20:10 | NUR ---
@1916 Assumed pt care bedside report received Candace AGUIRRE, met pt with sister at the bedside,as at this time pt sedated ongoing Propofol but open eyes to verbal command moves all extremities, vitals signs stable support with Levophed @0.5mcg/min generalize weakness noted, ETT to Ventilator FIO2 35% TV 400 tolerating well O2 SAT 98% no sign of distress noted. Patient and family education on care plan, sister verbalized understanding, encouraged to state her concerns but she was grateful for all the care pt receiving at this facility. Tube feeding NGT via right nares, placement checked and verified by auscultation no residual tolerating well, oral care suction via ETT for airway clearance. Lopez care adequate urine output noted and pt repositioned for comfort with pillow support. Will continue to monitor and treat as per care plan.
[2021-12-12] VITALS (35 sets, daily range): BP systolic 83–177; BP diastolic 47–78
--- NOTE | 2021-12-12 00:30 | NUR ---
Levophed drip titrated off as at this time blood pressure stable will continue to monitor
[2021-12-12] MEDS: PROPOFOL 1000 MG/100 ML PREMIX 100 ML IV PRN ×2 (00:43→06:22)
[2021-12-12] MEDS: ALBUTEROL SULFATE/IPRATROPIU 3 ML SOL IH SCH ×6 (02:01→23:37)
[2021-12-12] MEDS: HYDRAGUARD CREAM TP SCH ×2 (02:42→12:33)
--- NOTE | 2021-12-12 02:45 | NUR ---
Complete bed bath with CHG,radha changed wound care to the coccyx open wound stage barrier cream applied and covered with foam.
[2021-12-12] MEDS: LEVOTHYROXINE 0.05 MG TAB PO SCH (06:11)
[2021-12-12] MEDS: PIPERACILLIN/TAZOBACTAM 3.375 GM in DEXTROSE 5% 50 ML IV SCH ×3 (06:12→20:50)
[2021-12-12 06:23] LABS: HEMATOCRIT 23.9 % (36-48); HEMOGLOBIN 7.8 g/dL (12.0-16.0); MEAN CORPUSCULAR HEMOGLOBIN 29 pg (27-31); MEAN CORPUSCULAR HGB CONC 33 g/dL (33-37); PLATELET COUNT (AUTO) 244 K/uL (140-450); RED BLOOD CELL COUNT(AUTO) 2.71 MIL/uL (4.20-5.40); RED CELL DISTRIBUTION WIDTH 19.4 % (11.6-13.7); WHITE BLOOD COUNT (AUTO) 6.5 K/uL (4.8-10.8)
[2021-12-12 06:43] LABS: ANION GAP 6.7 (8-16); CARBON DIOXIDE 33.7 mmol/L (21-32); CHLORIDE 103 mmol/L (98-107); CREATININE 0.3 mg/dL (0.6-1.3); GLUCOSE 119 mg/dL (74-106); POTASSIUM 3.4 mmol/L (3.5-5.1); SODIUM SERUM 140 mmol/L (136-145); UREA NITROGEN, BLOOD 16 mg/dL (7-18)
--- NOTE | 2021-12-12 07:13 | NUR ---
Bedside report given to Nayeli RN at change of shift as this time pt eyes open no sign of distress no changes in care plan and condition
--- NOTE | 2021-12-12 07:15 | NUR ---
RECEIVED REPORT FROM NIGHTSSCFT RN FOR CONTINUITY OF CARE.
[2021-12-12 07:35] LABS: LYMPHOCYTES % (AUTO) 6.8 % (20.5-51.1); NEUTROPHILS % (AUTO) 87.1 % (42.2-75.2); PLATELET COUNT,MANUAL 244 K/uL (150-450)
[2021-12-12 07:36] LABS: BASOPHILS % (AUTO) 0.5 % (0.0-2.0); EOSINOPHILS # (AUTO) 0.1 K/uL (0-0.4); EOSINOPHILS % (AUTO) 2.1 % (0.0-4.0); LYMPHOCYTES # (AUTO) 0.4 K/uL (2.5-16.5); MONOCYTES # (AUTO) 0.2 K/uL (0.8-1.0); MONOCYTES % (AUTO) 3.5 % (1.7-9.3); NEUTROPHILS # (AUTO) 5.6 K/uL (1.8-7.7)
[2021-12-12 07:37] LABS: EOSINOPHILS % (MANUAL) 3 % (0-4); LYMPHOCYTES % (MANUAL) 8 % (20-46); METAMYELOCYTES % 2 % (0-0); MONOCYTES % (MANUAL) 3 % (5-12)
--- NOTE | 2021-12-12 07:45 | NUR ---
PT A&OX0, RASS -2, PERRLA, ABLE TO TRACK. ETT TO VENT, AC/PRVC VT 400, FIO2 35%, RR 12, PEEP 5. RESPIRATIONS EVEN AND UNLABORED. OFF LEVO, SR ON MONITOR, BP 100/49. PICC TO GLENN INFUSING PROPOFOL @35MCG/KG/MIN AND NS TKO 5ML/HR. LEVO REMAINS OFF. NGT TO LEFT NARE INFUSING JEVITY 1.2 TUBE FEEDING @50ML/HR. TOLERATING WELL, RESIDUAL 5ML. F/C TO GRAVITY, DRAINING CLEAR YELLOW URINE. SCD'S IN PLACE. HEEL PROTECTORS IN PLACE. BILATERAL SOFT WRIST RESTRAINTS TO BUE, NO S/S OF INJURY. SAFETY PRECAUTIONS IN PLACE, BED IN LOWEST POSITION, CALL LIGHT WITHIN REACH.
[2021-12-12] MEDS: KCL 20 MEQ/WATER INJ PREMIX 100 ML IV PRN (08:15)
[2021-12-12] MEDS: FUROSEMIDE 20 MG/2 ML VIAL IVP SCH ×2 (08:29→16:55)
[2021-12-12] MEDS: POTASSIUM CHLORIDE 20% 40 MEQ/15 ML UDC GT SCH (08:29)
[2021-12-12] MEDS: ASPIRIN 81 MG TAB.CHEW PO SCH (08:30)
[2021-12-12] MEDS: PANTOPRAZOLE 40 MG INJ VIAL IVP SCH ×2 (08:30→20:52)
[2021-12-12] MEDS: MIDODRINE 5 MG TAB PO SCH ×3 (08:32→17:00)
[2021-12-12] MEDS: ENOXAPARIN 40 MG/0.4 ML SYR SUBQ SCH (08:32)
--- NOTE | 2021-12-12 08:38 | NUR ---
PLACED PT ON CPAP/SBT. CPAP 5, PS 12. PT IS TOLERATING CPAP MODE. UNABLE TO PERFORM NIF AND VITAL CAPACITY. TVEXP WAS 350. RR WAS 15.
--- NOTE | 2021-12-12 08:50 | NUR ---
RT AT BEDSIDE. CPAP TRIALS.
--- NOTE | 2021-12-12 08:54 | NUR ---
PT SISTER PAUL AT BEDSIDE. UPDATED REGARDING PT CONDITION.
--- NOTE | 2021-12-12 09:50 | NUR ---
SEEN AND EXAMINED BY DR. MARTINI.
--- NOTE | 2021-12-12 11:40 | NUR ---
CPAP TRIALS. PEEP 5, PS 12. PT LASTED FOR 30 MINS BEFORE TIRING OUT AND ELEVATED RR.
--- NOTE | 2021-12-12 12:09 | NUR ---
SPOKE WITH DR. BHATTI REGARDING CPAP TRIAL FAILURE. PT BECAME ANXIOUS AND TACHYPNEIC. ORDERED TO TRY CPAP TRIALS AGAIN TOMORROW AND TO START PRECEDEX AND WEAN OFF PROPOFOL TODAY.
[2021-12-12] MEDS: FOAM DRESSING TP SCH (12:32)
[2021-12-12] MEDS: ONDANSETRON 4 MG/2 ML VIAL IVP PRN (12:34)
--- NOTE | 2021-12-12 13:20 | NUR ---
STARTED ON PRECEDEX AT 0.2 MCG/KG/HR PER DR BHATTI ORDER. WEAN OFF PROPOFOL.
[2021-12-12] MEDS: DEXMEDETOMIDINE HCL 400 MCG in NACL 0.9% 96 ML IV PRN ×3 (13:24→22:18)
--- NOTE | 2021-12-12 15:01 | NUR ---
NGT RESIDUAL OF 50ML. STARTED A NEW BAG OF FEEDING, JEVITY 1.2, AND CHANGED TUBING. GAVE ORAL SUPPLEMENT, MARK. SISTER AT BEDSIDE.
--- NOTE | 2021-12-12 16:23 | NUR ---
SEEN AND EXAMINED BY DR. BHATTI.
--- NOTE | 2021-12-12 16:43 | NUR ---
SUDHIR BHATTI; CPT QID TO RIGHT SIDE WITH HHN THERAPY; MUCOMYST 1ml/10% Q4 X 3 DAYS
--- NOTE | 2021-12-12 17:45 | NUR ---
MIDODRINE 10MG HELD D/T SYSTOLIC BP 130'S-140'S. LEVO REMAINS OFF.
--- NOTE | 2021-12-12 18:30 | NUR ---
SISTER AT BEDSIDE. PT AGITATED, RESTRAINTS NOTED TO BE LOOSENED. PT PULLED OUT NGT. INSERTED NEW NGT. CXR DONE, AWAITING RESULTS TO CONFIRM PLACEMENT. FEEDING PAUSED. RT AT BEDSIDE TO ASSESS PLACEMENT OF ET TUBE. PRECEDEX RATE INCREASED TO RESOLVE AGITATION.
--- NOTE | 2021-12-12 19:10 | NUR ---
GAVE BEDSIDE REPORT TO JUSTINA AGUIRRE FOR CONTINUITY OF CARE.
--- NOTE | 2021-12-12 19:32 | NUR ---
RECEIVED REPORT FROM MASOOD AGUIRRE. PT IS WIDE AWAKE ON PRECEDEX 1.1 REPOSITIONED PT ON HER LEFT SIDE WITH ASSISTANCE FROM GRECIA MORA. PT IMMEDIATELY REPOSITIONED HER SELF ON HER BACK EVEN WITH THE PILLOW TUCKED UNDER HER BACK. a TEXT WAS SENT TO DR. MARTINI TO REQUEST ATIVAN SEVERE AGITATION. HE TEXT BACK WITH ORDERS FOR ATIVAN AND PROPOFOL IF AGITATION IS CONTINUED.
[2021-12-12] MEDS: ACETYLCYSTEINE 10% (100 MG/ML) 100 MG/ML VIAL INH SCH ×2 (19:57→23:38)
--- NOTE | 2021-12-12 20:15 | NUR ---
CHECKED FOR X-RAY RESULTS FOR THE NGT PLACEMENT. THE X-RAY REPORT STATES THE TUBE COLUD BE ADVANCED 10-15 CM. HAD DIFFICULTY FINDING CM MEASURING TAPE. GRECIA RT FINALLY FOUND ONE AT 2039 AND THE NGT WAS ADVANCED AND THE FEEDING WAS RESUMED.
[2021-12-12] MEDS ORDERED: LORazepam 2 MG/ML VIAL ONE (20:55)
[2021-12-12] MEDS: LORazepam 2 MG/ML VIAL IVP PRN (20:58)
[2021-12-12] MEDS ORDERED: DEXMEDETOMIDINE HCL 100 MCG/ML 2 ML VIAL IV ONE (22:06)
[2021-12-13] VITALS (29 sets, daily range): BP systolic 112–177; BP diastolic 45–82
[2021-12-13] MEDS: ACETYLCYSTEINE 10% (100 MG/ML) 100 MG/ML VIAL INH SCH ×6 (02:03→23:07)
[2021-12-13] MEDS: ALBUTEROL SULFATE/IPRATROPIU 3 ML SOL IH SCH ×6 (02:03→23:07)
[2021-12-13] MEDS: HYDRAGUARD CREAM TP SCH ×2 (03:24→13:06)
[2021-12-13] MEDS: PIPERACILLIN/TAZOBACTAM 3.375 GM in DEXTROSE 5% 50 ML IV SCH ×3 (05:46→21:21)
[2021-12-13] MEDS: LEVOTHYROXINE 0.05 MG TAB PO SCH (05:47)
--- NOTE | 2021-12-13 07:15 | NUR ---
PT WAS VERY IRRITATED WHEN I ENTERED THE ROOM. THE PT WAS RESTRAINED AND ATTEMPTING TO REMOVE HER NG TUBE. I STOPPED THE PT FROM PULLING THE TUBE OUT. THE PT THEN REACHED FOR THE ET TUBE AND ATTEMPTED TO PULL ON IT WELL. I WAS ABLE TO REPOSITION THE PT WITH NURSING STAFF ASSISTANCE. I THEN ADMINISTERED THE PTS BREATHING TREATMENT IN-LINE WITH THE VENTILATOR. I THEN GRABBED PNEUMATIC PERCUSSOR AT PTS BEDSIDE, WHEN THE THE PT SAW AND HEARD THE PERCUSSOR, THE PT MADE GRIMACE AND SHOOK HER HEAD NO, VIOLENTLY. I EXPLAINED TO THE PT SHE NEEDED THE CPT, SHE STILL SHOOK HER HEAD NO, I THEN ASKED IF SHE WANTED ME TO NOT GIVE HER CPT AT THIS TIME, TO WHICH THE PT NODDED HER HEAD YES. NURSING STAFF IS AWARE. WILL CONTINUE TO MONITOR
[2021-12-13 07:17] LABS: BASOPHILS # (AUTO) 0.1 K/uL (0.00-0.22); EOSINOPHILS # (AUTO) 0.1 K/uL (0-0.4); EOSINOPHILS % (AUTO) 2.2 % (0.0-4.0); HEMATOCRIT 24.4 % (36-48); HEMOGLOBIN 7.8 g/dL (12.0-16.0); LYMPHOCYTES # (AUTO) 0.5 K/uL (2.5-16.5); LYMPHOCYTES % (AUTO) 8.4 % (20.5-51.1); MEAN CORPUSCULAR HEMOGLOBIN 28 pg (27-31); MEAN CORPUSCULAR HGB CONC 32 g/dL (33-37); MEAN CORPUSCULAR VOLUME 87.7 fL (80-94); MONOCYTES # (AUTO) 0.3 K/uL (0.8-1.0); MONOCYTES % (AUTO) 4.8 % (1.7-9.3); NEUTROPHILS # (AUTO) 4.8 K/uL (1.8-7.7); NEUTROPHILS % (AUTO) 83.6 % (42.2-75.2); PLATELET COUNT (AUTO) 248 K/uL (140-450); RED BLOOD CELL COUNT(AUTO) 2.78 MIL/uL (4.20-5.40); RED CELL DISTRIBUTION WIDTH 19.6 % (11.6-13.7); WHITE BLOOD COUNT (AUTO) 5.7 K/uL (4.8-10.8)
[2021-12-13 07:28] LABS: ANION GAP 8.1 (8-16); CARBON DIOXIDE 32.5 mmol/L (21-32); CHLORIDE 103 mmol/L (98-107); CREATININE 0.4 mg/dL (0.6-1.3); GLUCOSE 127 mg/dL (74-106); POTASSIUM 3.6 mmol/L (3.5-5.1); SODIUM SERUM 140 mmol/L (136-145); UREA NITROGEN, BLOOD 25 mg/dL (7-18)
[2021-12-13] MEDS: LORazepam 2 MG/ML VIAL IVP PRN (07:30)
--- NOTE | 2021-12-13 07:40 | NUR ---
RECEIVED REPORT FROM ENE FLOREZ FOR CONTINUITY OF CARE. PT A&OX0, PERRLA, RASS +2, ABLE TO TRACK. ETT TO VENT, AC/PRVC, FIO2 35%, VT 400, RR 12, PEEP 5. SR ON MONITOR, BP WNL. REMAINS OFF LEVO. GLENN PICC INFUSING PRECEDEX AT 1 MCG/KG/HR AND NS TKO AT 5 ML/HR. NGT TO RIGHT NARE, INFUSING TUBE FEEDING, JEVITY 1.2 AT 50 ML/HR WITH 200 ML WATER FLUSH Q6H. F/C TO GRAVITY DRAINING CLEAR, YELLOW URINE. GENERALIZED WEAKNESS. BILATERAL SOFT WRIST RESTRAINTS TO BUE, NO S/S OF INJURY. SCD'S AND HEEL PROTECTORS IN PLACE. SAFETY PRECAUTIONS IN PLACE, BED IN LOWEST POSITION, CALL LIGHT WITHIN REACH. Addendum: 12/13/21 at 1048 by Thuy Humphrey RN RECEIVED REPORT FROM DRE HORN.
--- NOTE | 2021-12-13 08:00 | NUR ---
PT AGITATED, POSITIONED LOW IN BED, RETRACTED NGT 10CM. REINSERTED, AUSCULTATED, AND ORDERED STAT CXR. MEDICATED WITH PRN ATIVAN 1 MG. PRECEDEX IV PUMP NOTED TO BE INFUSING AT 1.2 ML/HR. IMMEDIATELY CORRECTED DOSAGE RATE CALCULATION. WILL CONTINUE TO CLOSELY MONITOR.
--- NOTE | 2021-12-13 08:45 | NUR ---
PT RESTING COMFORTABLY IN BED. VSS. RASS 0. WILL CONTINUE TO CLOSELY MONITOR.
[2021-12-13] MEDS: FUROSEMIDE 20 MG/2 ML VIAL IVP SCH ×2 (09:02→17:14)
[2021-12-13] MEDS: PANTOPRAZOLE 40 MG INJ VIAL IVP SCH ×2 (09:02→21:21)
[2021-12-13] MEDS: POTASSIUM CHLORIDE 20% 40 MEQ/15 ML UDC GT SCH (09:02)
[2021-12-13] MEDS: ASPIRIN 81 MG TAB.CHEW PO SCH (09:03)
[2021-12-13] MEDS: ENOXAPARIN 40 MG/0.4 ML SYR SUBQ SCH (09:03)
[2021-12-13] MEDS: DEXMEDETOMIDINE HCL 400 MCG in NACL 0.9% 96 ML IV PRN (09:15)
--- NOTE | 2021-12-13 09:45 | NUR ---
SEEN AND EXAMINED BY DR MARTINI
[2021-12-13] MEDS: MIDODRINE 5 MG TAB PO SCH ×3 (09:50→17:00)
--- NOTE | 2021-12-13 11:00 | NUR ---
STARTED PT ON SBT, SETTINGS PS 12 PEEP 5 FIO2 40%. PT MAINTAINED TIDAL VOLUMES AND SATURATIONS. SBT WILL RUN FOR 2 HOURS, PT BACK-UP SETTINGS PRVC 12 400 5 40%. WILL CONTINUE TO MONITOR.
--- NOTE | 2021-12-13 13:00 | NUR ---
PT PASSED 2 HOUR SBT, UNABLE TO OBTAIN NIF, VITAL CAPACITY AT THIS TIME. RN AWARE PT UNABLE TO FOLLOW COMMANDS AT THIS TIME. PT SET BACK TO PREVIOUS VENT SETTINGS. WILL CONTINUE TO MONITOR
[2021-12-13] MEDS: FOAM DRESSING TP SCH (13:05)
--- NOTE | 2021-12-13 14:40 | NUR ---
RODOLFO TUBE MARY CHANGED, ET TUBE IS STILL AT 21CM AT THE TEETH. AIRWAY IS PATENT, PT IS AWAKE AND ALERT. PT SATURATIONS ARE 94%
--- NOTE | 2021-12-13 14:40 | NUR ---
SPOKE WITH DR. BHATTI. IF PT PASSES 2 HOUR SBT TOMORROW, CALL REGARDING EXTUBATION. NOTED EARLIER PT PASSED 2 HOUR SBT, FAILED VC, AND NIF.
--- NOTE | 2021-12-13 15:03 | NUR ---
SEEN AND EXAMINED BY DR. BEE.
--- NOTE | 2021-12-13 18:59 | NUR ---
CHANGED TUBE FEEDING BAG AND TUBING. RESIDUAL 10ML. GAVE ORAL SUPPLEMENT MARK. PT TOLERATED WELL.
--- NOTE | 2021-12-13 19:15 | NUR ---
GAVE REPORT TO GAUTAM TECHNICAL INFORMATION SPECIALIST RN FOR CONTINUITY OF CARE.
--- NOTE | 2021-12-13 20:40 | NUR ---
@1925 Assumed pt care report received from Thuy RN, met pt awake alert follows command eyes open moves all extremities restraints on wrists bilaterally for safety as pt attempted many times to pull ETT, NGT uncooperative, restless in bed ongoiong Precedex drip titrated up for comfort, ETT to ventilator FIO2 35% O2 sat 96% oral care done, suction for airway clearance, NGT tube feeding checked residual <10 placement checked verified by auscultation, do to gravity some urine noted, will continue to educates, reorient pt support to alleviates anxiety, bed in low position close monitoring for safety and treat as per care plan.
--- NOTE | 2021-12-13 22:30 | NUR ---
Pt's sister called updates given on the pt's present condition and tolerance of ongoing treatments as at this time vitals signs stable no sign of distress.
[2021-12-14] VITALS (31 sets, daily range): BP systolic 99–164; BP diastolic 47–96
[2021-12-14] MEDS: HYDRAGUARD CREAM TP SCH ×2 (00:59→13:00)
[2021-12-14] MEDS: ALBUTEROL SULFATE/IPRATROPIU 3 ML SOL IH SCH ×6 (02:09→23:12)
[2021-12-14] MEDS: ACETYLCYSTEINE 10% (100 MG/ML) 100 MG/ML VIAL INH SCH ×5 (02:09→23:12)
[2021-12-14] MEDS: DEXMEDETOMIDINE HCL 400 MCG in NACL 0.9% 96 ML IV PRN ×3 (03:27→18:55)
--- NOTE | 2021-12-14 03:45 | NUR ---
Complete bed bath with CHG, do, oral, skin and wound care done pt tolerated well vitals signs stable no problem encountered.
[2021-12-14] MEDS: PIPERACILLIN/TAZOBACTAM 3.375 GM in DEXTROSE 5% 50 ML IV SCH ×3 (06:18→21:45)
[2021-12-14] MEDS: LEVOTHYROXINE 0.05 MG TAB PO SCH (06:18)
--- NOTE | 2021-12-14 07:18 | NUR ---
Change of shift report given to RENETTA AGUIRRE at the bedside for continuity of care as at this time no changes in care plan and pt's condition.
--- NOTE | 2021-12-14 07:25 | NUR ---
Received pt awake and nonverbal. ET-Tube to vent settings AC PRVC TV 400 Rate 12 Peep 5 FIO2@35%. Sinus rhythm on monitor. NG-tube intact and patent to right nare infusing Jevity 1.2@50ml/hr with free water flush 200ml Q6h. Lopez catheter intact and draining to BSD. Bilat soft wrist restraints in place. Bilat SCD in place. PICC line on right upper arm intact and patent infusing Precedex @1mcg/kg/hr and NS @TKO. Safety precautions in place.
[2021-12-14] MEDS: PANTOPRAZOLE 40 MG INJ VIAL IVP SCH ×2 (08:17→21:45)
[2021-12-14] MEDS: POTASSIUM CHLORIDE 20% 40 MEQ/15 ML UDC GT SCH (08:17)
[2021-12-14] MEDS: ENOXAPARIN 40 MG/0.4 ML SYR SUBQ SCH (08:18)
[2021-12-14] MEDS: ASPIRIN 81 MG TAB.CHEW PO SCH (08:18)
[2021-12-14] MEDS: FUROSEMIDE 20 MG/2 ML VIAL IVP SCH ×2 (08:18→16:49)
[2021-12-14] MEDS: MIDODRINE 5 MG TAB PO SCH ×3 (08:19→17:00)
--- NOTE | 2021-12-14 08:35 | NUR ---
XRAY BEING DONE AT BEDSIDE.
--- NOTE | 2021-12-14 10:25 | NUR ---
WOUND CARE RE-EVALUATION NOTE: SKIN ASSESSMENT DONE WITH PRIMARY RN. ET-TUBE WITH NG-TUBE IN PLACE AND SECURED. MILLER CATHETER PATENT DRAINING TO BSD MODERATED AMOUNT CLEAR URINE OUTPUT OBSERVED. BILATERAL SOFT WRIST RESTRAINTS IN PLACE, WRISTS SKIN INTACT. PT. IS AWAKE ALERT, COMBING HER HAIR WITH HER RIGHT HAND UPON ARRIVAL TO BED SIDE. NEW DISCOVERY TO SACRAL COCCYX PRESSURE INJURY STAGE 1 TODAYS ASSESSMENT EM TO UN-STAGEABLE, WOUND BED 2X2.3X0.1 CM WITH 30 % RED TISSUE AND 70 % BROWN THIN SLOUGH TISSUE, WOUND BED MOIST, NO ODOR, WOUND EDGE FLAT, GINGER-WOUND SURROUNDING SKIN PURPLE COLOR WITH FURTHER DAMAGE INDICATED. POC DISCUSSED WITH PRIMARY RN AND DR. MARTINI. SISTER AT BEDSIDE CHANGE OF SKIN CONDITION OBSERVED AND POC DISCUSSED. COMORBIDITIES DISCUSSED WITH RISK FACTORS EXPLAINED, HOWEVER, SHE DOES NOT BELIEVE SKIN BREAKS CAN HAPPEN WITH ALL SKIN CARE/PRESSURE INJURY CARE INTERVENTIONS IN PLACE. ALL SHE IS WORRIED AT THIS POINT IS WHEN ARE THEY GOING TO REMOVE THE ET-TUBING, SHE IS ALREADY BREATHING ON 100%. I EXPLAIN TO SISTER THAT FURTHER QUESTION SHE HAS IS TO ASK RT AND PULMONARY DOCTOR. SISTER VERBALIZES UNDERSTANDING. COMORBIDITIES RELATED TO DELAY WOUND HEALING, FURTHER SKIN BREAKS PRESSURE INJURY: BOWEL INCONTINENCE, PNEUMONIA INFECTION, HYPOXEMIC DECREASE TISSUE PERFUSION, TISSUE ISCHEMA, DECREASE MOBILITY AND FUNCTIONAL ABILITIES, AND HOB ELEVATED THE MAJORITY OF TIMES DUE TO MEDICAL REASONS. LABS: 12/07/2021 ALBUMIN 2.0, 12/10/2021 PT/INR 9.9/0.95, 12/13/ Hgb/Hct 7.8/24.4 RECOMMENDATIONS -APPLY HYDRAGUARD TO PERINEUM BID -CLEANSE SACRALCOCCYX WITH NS, PAT DRY, APPLY THERAHONEY GEL TO WOUND BED COVER WITH FOAM DRESSING QD AND PRN IF SOILING, OFFLOADING AREA -POSITIONING: TURN AND REPOSITION PATIENT Q 2H OR SOONER USE PILLOWS TO KEEP BONY PROMINENCES FROM DIRECT CONTACT WITH SURFACES USE REPOSITIONING WEDGES TO PROVIDE 30-DEGREE ANGLE FOR SIDE LYING POSITIONS OFFLOADING OR FOAM DRESSING TO ALL TUBING TO PREVENT MEDICAL DEVICES RELATED PRESSURE INJURY -RE-EVALUATING AND MANAGING INCONTINENCE MONITOR SKIN CONDITION DURING POSITION CHANGE DO NOT MASSAGE REDNESS, BONY PROMINENCES FREQUENT GINGER-CARE AND PROVIDE BARRIER CREAMS PRN IF SOILING MOISTURE CONTROL BY OFFER BED HUBBARD/URINAL /ABSORBENT PAD TO WICK AND HOLD MOISTURE KEEP SKIN DRY AND PROTECT FROM FRICTION -MANAGE FRICTION/SHEAR/MOBILITY KEEP HOB AT THE LOWEST LEVEL OF ELEVATION NO MORE THAN 30-DEGREE UNLESS OTHERWISE CONTRAINDICATED USE LIFT SHEET OR TRANSFER DEVICE TO MOVE PATIENT AND PREVENT LATERAL SHEER. PROTECT HEELS, ELBOWS BONY PROMINENCES WITH SKIN BERRIES OR FOAM DRESSING IF EXPOSED TO FRICTION OFFLOAD BILATERAL HEELS BY PLACING PILLOWS UNDER CALVES AT ALL TIMES, UNLESS OTHERWISE CONTRAINDICATED -PRESSURE REDISTRIBUTION SURFACE THERAPY AQUILINO ISOFLEX MARJORIE MATTRESS -NUTRITION: PLEASE FOLLOW RD RECOMMENDATIONS AND OFFER NUTRITION SUPPLEMENTS IF ORDERED.
[2021-12-14] MEDS ORDERED: LIDOCAINE 1% 500 MG/50 ML VIAL INJ SCH (11:15)
--- NOTE | 2021-12-14 11:15 | NUR ---
DR. BHATTI AT BEDSIDE PERFORMING BRONCHOSCOPY WITH 2 RT.
[2021-12-14] MEDS: FOAM DRESSING TP SCH (13:00)
--- NOTE | 2021-12-14 13:09 | NUR ---
PT PLACED ON CPAP 5 PS10 AND FIO2 35% PER . PHYSICIAN STATES TO LET PT TRIAL FOR 2 HOURS OBTAIN WEANING PARAMETERS AND CONTACT HIM REGARDING POSSIBLE EXTUBATION.
[2021-12-14] MEDS: THERAHONEY GEL 42.5 GM TP SCH (14:14)
--- NOTE | 2021-12-14 14:46 | NUR ---
CHEST XRAY DONE AT BEDSIDE.
--- NOTE | 2021-12-14 14:58 | NUR ---
PAGED TO UPDATE PHYSICIAN ON PT STATUS REGARDING CPAP TRIAL.
--- NOTE | 2021-12-14 15:04 | NUR ---
RECEIVED CALL BACK FROM UPDATED PHYSICIAN ON PT STATUS AND WEANING PARAMETERS. NO ABG NECESSARY STATES PHYSICIAN. PHYSICIAN STATES PT STABLE ENOUGH TO EXTUBATE. WILL NOTIFY NURSE AND CARRY OUT ORDER.
--- NOTE | 2021-12-14 15:20 | NUR ---
PT EXTUBATED AND PLACED ON 4L NC. LEAK HEARD AROUND CUFF WHEN DEFLATED. NO STRIDOR HEARD POST EXTUBATION. PT AWAKE. NURSE IS BEDSIDE. WILL CONTINUE TO MONITOR.
--- NOTE | 2021-12-14 15:20 | NUR ---
RT AT BEDSIDE AND EXTUBATED PT PER MD ORDER.
--- NOTE | 2021-12-14 16:20 | NUR ---
CNO AND ICU DIRECTOR NOTIFIED CHANGE OF SKIN CONDITION.
--- NOTE | 2021-12-14 17:46 | NUR ---
PT ON 4L NASAL CANNULA NO RESPIRATORY DISTRESS NOTED. SPO2 93%.
--- NOTE | 2021-12-14 19:05 | NUR ---
ENDORSED TO BINGO CALLER NURSE FOR CONTINUITY OF CARE.
--- NOTE | 2021-12-14 20:05 | NUR ---
@1912 Assumed pt care bedside change of shift report received from RENETTA AGUIRRE, met patient awake alert follows command as per report received pt extubated to day, generalized weakness but moves all extremities , NGT tube still in place with ongoing tube JEVITY @50 MLHR feeding, Precedex turned off pt restful no agitation nor restlessness noted, Oxygen via nasal canulla O2 sat 91%, oral care done, pt education on care plan, reorientation to unit and immediate environment. Call light at reach bed in low position, room close to nursing station. skin checked and pt repositioned for comfort. Ongoing close monitoring and treat as per care plan.
--- NOTE | 2021-12-14 21:00 | NUR ---
@ 2009 Observed patient's O2 SAT down to 72% using accessory muscle with shrugging shoulder, pt repositioned. GRECIA RT also intervening but not effective. Dr Denis called @2023 retuned called @2029 notified MD of event of desaturation pt extubated today, hx of lung CA order received from MD to apply BIPAP as pt tolerates and effective order placed and RT notified about the orders. All through the time ongoing patient and family (pt's sister Cristina at the bedside) support, sister worried she does not want pt intubated also complained that probably pulse ox detection was not working, explain over and over again. Bipap applied @2100 rate 16 12/ fio2 55% O2 SAT 90% continue to monitor and treat. Pt's sister at the bedside.
--- NOTE | 2021-12-14 21:03 | NUR ---
PT DESAT AND HAD SOME INCR WOB NIV WAS INITIATED AND SET @ 05/10 f16 50% WITH SPO2 CURRENTLY @ 90% WILL CONTINUE TO MONITOR AND TITRATE TOLERATED
--- NOTE | 2021-12-14 22:55 | NUR ---
Complete bed bath with CHG linen changed do catheter, skin care done pt tolerated well and repositioned for comfort . Vitals signs stable afebrile, O2 SAT 94% to 96% no sign of distress. Pt's sister left the unit to go home she was glad that pt's O2 sat improving while on BIPAP.
[2021-12-15] VITALS (28 sets, daily range): BP systolic 102–135; BP diastolic 26–79
[2021-12-15] MEDS: ALBUTEROL SULFATE/IPRATROPIU 3 ML SOL IH SCH ×6 (02:13→23:00)
[2021-12-15] MEDS: ACETYLCYSTEINE 10% (100 MG/ML) 100 MG/ML VIAL INH SCH ×6 (02:13→23:00)
[2021-12-15] MEDS: HYDRAGUARD CREAM TP SCH ×2 (02:15→12:02)
--- NOTE | 2021-12-15 02:45 | NUR ---
Cristina pt's sister called updates given on O2 SAT 92 to 93% still on BIPAP blood pressure, HR 80 B/P 124/60 pt awake follows command no changes in pt's condition.
--- NOTE | 2021-12-15 04:34 | NUR ---
NIV PLACED ON STDBY AND PLACED ON 15L OXY PT TOLERATING WELL AT THIS TIME W/ NO SOB PT TALKING AND ASKING FOR WATER PT WAS INFORMED WOULD NEED TO WAIT FOR SWALLOW EVAL PT MOUTH SWABBED SPO2 CURRENTLY 93% 15 MIN AFTER PLACING ON OXY WILL CONTINUE TO MONITOR AND TITRATE TOLERATED
[2021-12-15 04:55] LABS: ANION GAP 7.7 (8-16); CARBON DIOXIDE 34.4 mmol/L (21-32); CHLORIDE 104 mmol/L (98-107); CREATININE 0.3 mg/dL (0.6-1.3); GLUCOSE 122 mg/dL (74-106); POTASSIUM 3.1 mmol/L (3.5-5.1); SODIUM SERUM 143 mmol/L (136-145); UREA NITROGEN, BLOOD 16 mg/dL (7-18)
[2021-12-15] MEDS: LEVOTHYROXINE 0.05 MG TAB PO SCH (05:26)
[2021-12-15] MEDS: PIPERACILLIN/TAZOBACTAM 3.375 GM in DEXTROSE 5% 50 ML IV SCH ×3 (05:26→21:14)
--- NOTE | 2021-12-15 05:30 | NUR ---
PT PLACED ON HFNC 32L 60% SPO2 92% f25 HR77 15 MIN AFTER INITIATING HFNC PT TOLERATING WELL W/ NO SOB AT THIS TIME WILL CONTINUE TO MONITOR AND TITRATE TOLERATED BIPAP REMAINS ON STDBY @ BEDSIDE
[2021-12-15 06:05] LABS: BASOPHILS % (AUTO) 0.5 % (0.0-2.0); EOSINOPHILS # (AUTO) 0.1 K/uL (0-0.4); HEMATOCRIT 29.6 % (36-48); HEMOGLOBIN 9.5 g/dL (12.0-16.0); LYMPHOCYTES # (AUTO) 0.5 K/uL (2.5-16.5); LYMPHOCYTES % (AUTO) 7.6 % (20.5-51.1); MEAN CORPUSCULAR HEMOGLOBIN 28 pg (27-31); MEAN CORPUSCULAR HGB CONC 32 g/dL (33-37); MEAN CORPUSCULAR VOLUME 88.4 fL (80-94); MONOCYTES # (AUTO) 0.3 K/uL (0.8-1.0); MONOCYTES % (AUTO) 5.6 % (1.7-9.3); NEUTROPHILS # (AUTO) 5.2 K/uL (1.8-7.7); NEUTROPHILS % (AUTO) 85.3 % (42.2-75.2); PLATELET COUNT (AUTO) 265 K/uL (140-450); RED BLOOD CELL COUNT(AUTO) 3.35 MIL/uL (4.20-5.40); RED CELL DISTRIBUTION WIDTH 20.1 % (11.6-13.7); WHITE BLOOD COUNT (AUTO) 6.1 K/uL (4.8-10.8)
[2021-12-15 06:08] LABS: LD1 FRACTION 21 % (17-32); LD2 FRACTION 33 % (25-40); LD3 FRACTION 25 % (17-27); LD4 FRACTION 12 % (5-13); LD5 FRACTION 9 % (4-20)
--- NOTE | 2021-12-15 07:05 | NUR ---
Change of shift report at bedside to Sara AGUIRRE for continuity of care. Pt awake oxygen delivery via high flow nasal cannula 32lters /fio2 55% vitals signs stable afebrile no changes in care plan and condition
--- NOTE | 2021-12-15 07:15 | NUR ---
Received pt awake, alert and oriented x4. On high flow nasal cannula 32L FIO2@60%. Sinus rhythm on monitor. NG-tube intact and patent to right nare infusing Jevity 1.2@50ml/hr with free water flush 200ml Q6h. Lopez catheter intact and draining to BSD. Right upper arm PICC line intact and patent infusing NS @ TKO. Bilat SCD in place. Safety precautions in place.
[2021-12-15] MEDS: KCL 20 MEQ/WATER INJ PREMIX 100 ML IV PRN (07:28)
[2021-12-15] MEDS: FUROSEMIDE 20 MG/2 ML VIAL IVP SCH ×2 (08:08→16:22)
[2021-12-15] MEDS: POTASSIUM CHLORIDE 20% 40 MEQ/15 ML UDC GT SCH (08:08)
[2021-12-15] MEDS: PANTOPRAZOLE 40 MG INJ VIAL IVP SCH ×2 (08:08→21:15)
[2021-12-15] MEDS: ASPIRIN 81 MG TAB.CHEW PO SCH (08:09)
[2021-12-15] MEDS: ENOXAPARIN 40 MG/0.4 ML SYR SUBQ SCH (08:09)
[2021-12-15] MEDS: MIDODRINE 5 MG TAB PO SCH ×3 (08:09→16:21)
--- NOTE | 2021-12-15 09:16 | NUR ---
Seen and examined by Dr. Del Valle. New order received for swallow eval and Zosyn renewal.
--- NOTE | 2021-12-15 11:25 | NUR ---
Seen and examined by Dr. Cordova. Sister Cristina at bedside. New order for chest xray.
[2021-12-15] MEDS: FOAM DRESSING TP SCH (12:02)
[2021-12-15] MEDS: THERAHONEY GEL 42.5 GM TP SCH (12:02)
--- NOTE | 2021-12-15 12:10 | NUR ---
Dr. Alcazar at bedside examining pt.
--- NOTE | 2021-12-15 13:45 | NUR ---
12/15/21 RD FOLLOW UP COMPLETED PLEASE REFER TO NUTRITION ASSESSMENT UNDER CARE ACTIVITY FOR ESTIMATED NUTRITIONAL NEEDS. 1. IF PT PASSES SWALLOW EVAL, START PO DIET WITH CLEAR LIQUID DIET AND GRADUALLY ADVANCE TO REGULAR DIET WITH TEXTURE MODIFICATION PER SLT RECOMMENDATIONS -RECOMMEND ENSURE CLEAR TID AND MARK BID PER RD PROTOCOL 2. IF PT FAILS SWALLOW EVAL, RECOMMEND CONTINUING JEVITY 1.2 @ 50 ML/HR WITH MARK BID TOLERATED -FWF: 200 ML Q6H OR PER MD -WITH MARK BID, PT WILL RECEIVED 100% OF ESTIMATED NUTRITIONAL NEEDS 3. MONITOR GI SYMPTOMS AND WEIGHT CHANGES 4. RD TO FOLLOW-UP 2-3 DAYS, HIGH RISK SAMUEL MODI RD
--- NOTE | 2021-12-15 14:58 | NUR ---
Chest X-Ray done at bedside.
--- NOTE | 2021-12-15 15:00 | NUR ---
Pt had small BM. O2 sat decreased to 87%. RT at bedside and increased high flow FIO2 75%.
--- NOTE | 2021-12-15 19:25 | NUR ---
Endorsed to contract attorney nurse Penny for continuity of care.
--- NOTE | 2021-12-15 20:10 | NUR ---
@1935 Bedside change of shift report received from Sara AGUIRRE. PT awake alert oriented to person, place, correct response to month and year, follows command moves all extremities, oxygenation via high flow nasal cannula 32lters/75%, O2 sat 93% to 95% no sign of shortness of breadth, tube feeding checked no residual tolerating well, Reorientation to unit, education on care plan, call light at reach bed in low position , skin perineal care done she had small bowel movement. Pt's sister came in later she was happy that pt's condition improving vitals signs stable O2 SAT 95% and pt still defecates.
[2021-12-16] VITALS (25 sets, daily range): BP systolic 100–160; BP diastolic 55–114
[2021-12-16] MEDS: HYDRAGUARD CREAM TP SCH ×2 (00:54→13:23)
[2021-12-16 04:59] LABS: ANION GAP 6.9 (8-16); CARBON DIOXIDE 33.3 mmol/L (21-32); CHLORIDE 103 mmol/L (98-107); CREATININE 0.3 mg/dL (0.6-1.3); GLUCOSE 129 mg/dL (74-106); POTASSIUM 3.2 mmol/L (3.5-5.1); SODIUM SERUM 140 mmol/L (136-145); UREA NITROGEN, BLOOD 27 mg/dL (7-18)
[2021-12-16 05:10] LABS: BASOPHILS # (AUTO) 0.1 K/uL (0.00-0.22); BASOPHILS % (AUTO) 0.9 % (0.0-2.0); EOSINOPHILS # (AUTO) 0.1 K/uL (0-0.4); EOSINOPHILS % (AUTO) 1.7 % (0.0-4.0); HEMATOCRIT 26.5 % (36-48); HEMOGLOBIN 8.5 g/dL (12.0-16.0); LYMPHOCYTES # (AUTO) 0.6 K/uL (2.5-16.5); LYMPHOCYTES % (AUTO) 9.4 % (20.5-51.1); MEAN CORPUSCULAR HEMOGLOBIN 28 pg (27-31); MEAN CORPUSCULAR HGB CONC 32 g/dL (33-37); MEAN CORPUSCULAR VOLUME 88.4 fL (80-94); MONOCYTES # (AUTO) 0.5 K/uL (0.8-1.0); NEUTROPHILS # (AUTO) 4.8 K/uL (1.8-7.7); PLATELET COUNT (AUTO) 291 K/uL (140-450)
--- NOTE | 2021-12-16 05:15 | NUR ---
Cristina pt's sister called for updates as at this time pt awake follows command vitals stable awake alert no sign of distress noted
[2021-12-16] MEDS: LEVOTHYROXINE 0.05 MG TAB PO SCH (06:16)
[2021-12-16] MEDS: PIPERACILLIN/TAZOBACTAM 3.375 GM in DEXTROSE 5% 50 ML IV SCH ×3 (06:16→21:30)
--- NOTE | 2021-12-16 07:12 | NUR ---
Change of shift bedside report given to Nayeli RN as at this pt awake alert but confused vitals signs stable and no changes in pt's condition.
--- NOTE | 2021-12-16 07:15 | NUR ---
RECEIVED BEDSIDE REPORT FROM GAUTAM CASPER RN FOR CONTINUITY OF CARE. PT AAOX1, SPEECH GARBLED. ON HI FLOW NC, 40L, FIO2 50%. SPO2 96%. SR ON BEDSIDE MONITOR. SBP 160. NGT TO R NARE INFUSING JEVITY AT 50 ML/HR W 200 ML WATER FLUSH Q6H. FC DRAINING CLEAR YELLOW URINE. GLENN PICC IN PLACE, INFUSING NS AT 5ML/HR TKO. LAST DRESSING CHANGE 12/09. ST 2 TO SACRUM. DRESSING CLEAN, DRY INTACT. GENERALIZED WEAKNESS BUE BLE. ON STANDARD PRECAUTIONS. SAFETY PRECAUTIONS MET. CALL LIGHT WITHIN REACH. INITIAL ASSESSMENT COMPLETE, WILL CONTINUE TO CLOSELY MONITOR.
[2021-12-16] MEDS: ACETYLCYSTEINE 10% (100 MG/ML) 100 MG/ML VIAL INH SCH ×5 (07:45→23:50)
[2021-12-16] MEDS: ALBUTEROL SULFATE/IPRATROPIU 3 ML SOL IH SCH ×5 (07:45→23:50)
[2021-12-16] MEDS: FUROSEMIDE 20 MG/2 ML VIAL IVP SCH ×2 (08:15→17:23)
[2021-12-16] MEDS: POTASSIUM CHLORIDE 20% 40 MEQ/15 ML UDC GT SCH (08:15)
[2021-12-16] MEDS: PANTOPRAZOLE 40 MG INJ VIAL IVP SCH ×2 (08:15→21:31)
[2021-12-16] MEDS: ASPIRIN 81 MG TAB.CHEW PO SCH (08:15)
[2021-12-16] MEDS: ENOXAPARIN 40 MG/0.4 ML SYR SUBQ SCH (08:16)
[2021-12-16] MEDS: KCL 20 MEQ/WATER INJ PREMIX 100 ML IV PRN (08:18)
--- NOTE | 2021-12-16 08:30 | NUR ---
PT SISTER AT BEDSIDE. UPDATED REGARDING PT CONDITION.
[2021-12-16] MEDS: MIDODRINE 5 MG TAB PO SCH ×2 (09:00→13:00)
--- NOTE | 2021-12-16 09:55 | NUR ---
SEEN AND EXAMINED BY DR MARTINI.
--- NOTE | 2021-12-16 11:15 | NUR ---
SEEN AND EXAMINED BY DR BHATTI. ORDERS RECEIVED.
--- NOTE | 2021-12-16 11:15 | NUR ---
DR BHATTI BEDSIDE TITRATED FIO2 DOWN TO 40% AND PATIENT IS TOLERATING WELL BUT WILL CONTINUE TO MONITOR.
--- NOTE | 2021-12-16 12:45 | NUR ---
PT CLEANED AND REPOSITIONED. M SOFT BROWN BM NOTED. TOLERATED MOVEMENT WELL. WILL CONTINUE TO CLOSELY MONITOR.
[2021-12-16] MEDS: THERAHONEY GEL 42.5 GM TP SCH (13:23)
[2021-12-16] MEDS: FOAM DRESSING TP SCH (13:23)
--- NOTE | 2021-12-16 14:10 | NUR ---
ST COMPLETED SWALLOW EVAL. MECHANICAL SOFT GROUND CONSISTENCY. NECTAR THICK LIQUIDS, NO STRAW, 1:1 FEEDER.
[2021-12-16] MEDS ORDERED: KCL 20 MEQ/WATER INJ PREMIX 200 ML IV ONE (14:50)
--- NOTE | 2021-12-16 16:00 | NUR ---
CHANGED PICC DRESSING. PT CLEANED AND REPOSITIONED, TOLERATED WELL. CHANGED SACRAL DRESSING, PROVIDED GINGER CARE. L SOFT BROWN BM NOTED.
--- NOTE | 2021-12-16 18:00 | NUR ---
CLEANED AND REPOSITIONED PT. S SOFT BROWN BM NOTED. WILL CONTINUE TO CLOSELY MONITOR. EMPTIED 2300 CLEAR YELLOW URINE FROM FC
--- NOTE | 2021-12-16 19:05 | NUR ---
ENDORSED BEDSIDE REPORT TO GAUTAM CASPER RN FOR CONTINUITY OF CARE. ALL QUESTIONS ANSWERED.
--- NOTE | 2021-12-16 19:52 | NUR ---
@1915 Bedside report received from Nayeli AGUIRRE met pt with the sister, introduction, education on care plan sister verbalized understanding ,pt follws command but confused incoherent responses to questions, moves all extremities, generalized weakness, blood pressure stable HR in 70's SR, denies pain, Oxygen delivery via high flow nasal cannula 40ltrs/fio2 40% lungs sound on inspiration with chest wall sound O2 sat 96% no sign of shortness of breadth, tube feeding turned off NGT removed as new diet orders is regular diet, fluids with thickener, Iv site checked dry intact with dressing. Ongoing support, will continue to monitor and treat as per care plan.
[2021-12-17] VITALS (12 sets, daily range): BP systolic 92–164; BP diastolic 54–74
--- NOTE | 2021-12-17 01:35 | NUR ---
Pt very confused as at this time restless pulled out all her EKG wires, reorientation to the unit, complete bed bath with CHG wipes, do care , repositioned in bed, water offered ongoing support and enhanced monitoring for safety.
[2021-12-17] MEDS: ACETYLCYSTEINE 10% (100 MG/ML) 100 MG/ML VIAL INH SCH ×6 (03:46→23:57)
[2021-12-17] MEDS: PIPERACILLIN/TAZOBACTAM 3.375 GM in DEXTROSE 5% 50 ML IV SCH ×3 (05:26→21:43)
[2021-12-17] MEDS: LEVOTHYROXINE 0.05 MG TAB PO SCH (05:26)
[2021-12-17] MEDS: HYDRAGUARD CREAM TP SCH ×2 (05:27→13:05)
[2021-12-17 06:00] LABS: BASOPHILS # (AUTO) 0.1 K/uL (0.00-0.22); BASOPHILS % (AUTO) 1.2 % (0.0-2.0); EOSINOPHILS # (AUTO) 0.1 K/uL (0-0.4); EOSINOPHILS % (AUTO) 1.3 % (0.0-4.0); HEMATOCRIT 26.6 % (36-48); HEMOGLOBIN 8.5 g/dL (12.0-16.0); LYMPHOCYTES # (AUTO) 0.5 K/uL (2.5-16.5); LYMPHOCYTES % (AUTO) 10.2 % (20.5-51.1); MEAN CORPUSCULAR HEMOGLOBIN 28 pg (27-31); MEAN CORPUSCULAR HGB CONC 32 g/dL (33-37); MEAN CORPUSCULAR VOLUME 88.1 fL (80-94); MONOCYTES # (AUTO) 0.5 K/uL (0.8-1.0); MONOCYTES % (AUTO) 9.2 % (1.7-9.3); NEUTROPHILS # (AUTO) 4.2 K/uL (1.8-7.7); NEUTROPHILS % (AUTO) 78.1 % (42.2-75.2); PLATELET COUNT (AUTO) 308 K/uL (140-450); RED BLOOD CELL COUNT(AUTO) 3.02 MIL/uL (4.20-5.40); RED CELL DISTRIBUTION WIDTH 20.5 % (11.6-13.7); WHITE BLOOD COUNT (AUTO) 5.3 K/uL (4.8-10.8)
[2021-12-17 06:26] LABS: ANION GAP 10.8 (8-16); CARBON DIOXIDE 31.3 mmol/L (21-32); CHLORIDE 106 mmol/L (98-107); CREATININE 0.4 mg/dL (0.6-1.3); GLUCOSE 109 mg/dL (74-106); POTASSIUM 3.1 mmol/L (3.5-5.1); SODIUM SERUM 145 mmol/L (136-145); UREA NITROGEN, BLOOD 24 mg/dL (7-18)
[2021-12-17] MEDS: ALBUTEROL SULFATE/IPRATROPIU 3 ML SOL IH SCH ×5 (06:38→23:56)
--- NOTE | 2021-12-17 07:00 | NUR ---
RECEIVED PT ON HF 40L, 40%FIO2, 34.0. SATURATION WAS 97-99%. TREATMENT GIVEN AND CPT WAS DONE.
--- NOTE | 2021-12-17 07:06 | NUR ---
SBAR report to Sara AGUIRRE at the bedside for continuity of care vitals signs stable no changes in care plan and pt's condition.
--- NOTE | 2021-12-17 07:10 | NUR ---
RECEIVED PT IN BED WITH EYES CLOSED AROUSED BY TOUCH. ON HIGH FLOW NC 40L FIO2@40%. SINUS RHYTHM ON MONITOR. ABD SOFT AND NONDISTENDED. MILLER CATHETER INTACT AND DRAINING TO BSD. PICC LINE ON GLENN INTACT AN PATENT INFUSING NS @TKO. BILAT HEEL PROTECTS IN PLACE. SAFETY PRECAUTIONS IN PLACE.
--- NOTE | 2021-12-17 07:20 | NUR ---
ATTEMPTED TO FLUSH PURPLE LUMEN ON RIGHT UPPER ARM PICC LINE. ONE LUMEN CLOGGED. WILL CONTACT PHYSICIAN FOR FURTHER ORDERS.
--- NOTE | 2021-12-17 07:30 | NUR ---
PT NOTED WITH CONFUSION. A&OX1. REORIENTED PT.
[2021-12-17] MEDS: KCL 20 MEQ/WATER INJ PREMIX 100 ML IV PRN (08:14)
[2021-12-17] MEDS: ENOXAPARIN 40 MG/0.4 ML SYR SUBQ SCH (08:15)
[2021-12-17] MEDS: ASPIRIN 81 MG TAB.CHEW PO SCH (08:16)
[2021-12-17] MEDS: MIDODRINE 5 MG TAB PO SCH ×3 (08:16→16:47)
[2021-12-17] MEDS: FUROSEMIDE 20 MG/2 ML VIAL IVP SCH ×2 (08:16→16:47)
[2021-12-17] MEDS: PANTOPRAZOLE 40 MG INJ VIAL IVP SCH ×2 (08:16→21:41)
[2021-12-17] MEDS: POTASSIUM CHLORIDE 20% 40 MEQ/15 ML UDC GT SCH (08:17)
[2021-12-17] MEDS ORDERED: KCL 20 MEQ/WATER INJ PREMIX 200 ML IV SCH (11:00)
--- NOTE | 2021-12-17 11:00 | NUR ---
SEEN AND EXAMINED BY DR. BHATTI. NEW ORDER RECEIVED.
--- NOTE | 2021-12-17 11:00 | NUR ---
TITRATED PT FROM 40% FIO2 TO 35% FIO2. SATURATION WAS 97%.
--- NOTE | 2021-12-17 12:15 | NUR ---
SEEN AND EXAMINED BY DR. CERRATO. NO NEW ORDERS.
--- NOTE | 2021-12-17 13:00 | NUR ---
DISCHARGE PLANNING PATIENT IS A 76 YEAR OLD FEMALE ADMITTED TO THE [facility]/ED ON 11/27/2021 DUE TO SHORTNESS OF BREATH. PATIENT HAS HX OF CHF EXACERBATION, THYROID DISEASE AND NOT COMPLIANT WITH MEDICATIONS AND MEDICAL MANAGEMENT. SW MEET WITH PATIENT AND SISTER PAUL AT BEDSIDE TO DISCUSS AND GATHER HER COLLATERAL INFORMATION. PATIENT WAS UNABLE TO PROVIDE HER OWN INFORMATION. THEREFORE; HER SISTER PAUL THAT WAS VISITING AT THE TIME PROVIDED GIVE PATIENT INFORMATION. INITIALLY WHEN SW ASK ABOUT PATIENT ADDRESS CONFIRMATION SISTER PAUL STATED THAT PATIENT WAS LIVING WITH HER AT HER HOME AT [address] [facility] [address]. HOWEVER WHEN QUESTION ABOUT SNF [facility] ADDRESS PATIENT SISTER FINALLY DISCLOSED THAT PATIENT GOT SICK AND AFTER LEAVING THE HOSPITAL SHE WAS PLACED AT [facility] FOR ABOUT 2 WEEKS BEFORE SHE WAS ADMITTED HERE AT [facility]. DURING THE CONVERSATION WITH PATIENT'S SISTER SHE WAS VERY AVOIDANT IN WANTING TO DISCUSS PATIENT DISCHARGE PLAN AND POSSIBLE PLACEMENT BACK TO SNF OR EVENT HIGHER LEVEL OF CARE IF RECOMMENDED BY MD. MRS PAUL GARRISON INSISTED ON SAYING "WHEN SHE IS DISCHARGE WILL BE GOING HOME BACK WITH ME AT HOME". SW DISCUSSED WITH PATIENT'S SISTER HER CRITICAL MEDICAL STATUS AND LEVEL OF CARE REQUIRED WHEN SHE IS EVEN STABLE TO BE DISCHARGE POSSIBLY TO A SNF OR HIGHER LEVEL OF CARE. PATIENT'S SISTER WAS NOT HAPPY ABOUT DISCUSSION AND KEPT SAYING " I WANT TAKE HER HOME" SW EXPLAINED TO HER THAT IF PATIENT IS NOT MEDICAL CLEAR OR SAFE TO GO HOME PATIENT WILL BE REFERRED TO A SNF WHERE SHE CAN GET MEDICAL CARE THAT MEETS HER NEEDS OR ELSE IT CAN BE CONSIDER MEDICAL NEGLECT ON A PATIENT OF HER AGE AND VULNERABLE POSITION. SW ALSO EXPLAINED THAT IN CASES LIKE THIS ONE IOS ARCHITECT MAY HAVE TO DO AN APS REPORT IF TREATMENT OR CARE IS DENIED FROM PATIENT. PATIENT'S SISTER FIRST WAS MAD BUT AFTER TALKING FOR A WHILE SHE UNDERSTOOD AND STATED "I DON'T WANT ANY TROUBLE I WILL FOLLOW AND GET HER WHATEVER SHE NEEDS". PATIENT'S SISTER STATED THAT PATIENT HAS NO A.D. BUT SHE IS THE ONLY FAMILY MEMBER FOR PATIENT. PAUL GARRISON IS HER ONLY EMERGENCY CONTACT AND MEDICAL DESICION MAKER. PER PATIENT'S SISTER SHE HAS NO DME AT HOME, NO ISSUES WITH MEDICATIONS AND PATIENT WILL BE DISCHARGING TO THE LEVEL OF CARE SHE NEEDS AND WHAT PATIENT'S DOCTOR'S RECOMMENDS HER TO GO. SW ALSO DISCUSSED WITH PATIENT'S SISTER THE IMPORTANCE OF FOLLOWING WITH [facility]/STAFF AND RECOMMENDATIONS FOR PATIENT THEREFORE; PATIENT'S SISTER IS ONLY GOING TO HELP HER EAT WHEN SHE ASKED THE STAFF/RN AND THEY ARE AWARE AND IN AGREEMENT FOR MRS. PAUL GARRISON TO HELP. PATIENT'S SISTER AGREED TO FOLLOW [facility]/STAFF RULES AND SAFETY GUIDELINES. PROVIDED MRS. PAUL GARRISON WITH DIRECT CONTACT NUMBER AND WILL FOLLOW UP NEEDED .
[2021-12-17] MEDS: FOAM DRESSING TP SCH (13:04)
[2021-12-17] MEDS: THERAHONEY GEL 42.5 GM TP SCH (13:05)
--- NOTE | 2021-12-17 13:45 | NUR ---
TRANSFERRED PT TO CT SCAN WITH RT. SINUS RHYTHM ON MONITOR. RETURNED BACK TO ROOM IN STABLE CONDITION. PT WITH MEDIUM BROWN BM. PROVIDED PERICARE.
--- NOTE | 2021-12-17 13:45 | NUR ---
TRANSFERRED PT TO CT USING A NON REBREATHER MASK. RETURNED PT AFTER CT AND SHE IS ON PREVIOUS HFNC SETTING OF 40L, 40% FIO2. NO COMPLICATIONS.
--- NOTE | 2021-12-17 14:20 | NUR ---
DR. MARTINI AWARE OF CLOGGED PICC LINE. NEW ORDER RECEIVED FOR CATH FLOW.
--- NOTE | 2021-12-17 14:20 | NUR ---
12/17/21 RD FOLLOW UP COMPLETED PLEASE REFER TO NUTRITION ASSESSMENT UNDER CARE ACTIVITY FOR ESTIMATED NUTRITIONAL NEEDS. 1. CONTINUE REGULAR MECHANICAL SOFT DIET WITH NECTAR THICK LIQUIDS TOLERATED -MONITOR PO INTAKE 2. RECOMMEND ENSURE TID AND MARK BID FOR NUTRITION SUPPORT AND WOUND HEALING 3. RD TO FOLLOW-UP 2-3 DAYS, HIGH RISK SAMUEL MODI RD
[2021-12-17] MEDS ORDERED: ALTEPLASE 2 MG VIAL MC SCH (15:00)
--- NOTE | 2021-12-17 15:23 | NUR ---
REPORTED CT SCAN TO DR. BHATTI. NO NEW ORDER.
--- NOTE | 2021-12-17 16:02 | NUR ---
PHYSICAL THERAPIST AT BEDSIDE.
--- NOTE | 2021-12-17 16:35 | NUR ---
CATH FLOW ADMINISTERED PER PROTOCOL. PURPLE LUMEN UNCLOGGED AND PATENT. PT TOLERATED WELL. VSS.
--- NOTE | 2021-12-17 18:49 | NUR ---
P.T. NOTES P.T. ELLY COMPLETED; REFER TO ELLY FOR DETAILS. Addendum: 12/17/21 at 1852 by Adriana Gerber PT P.Terrance SANABRIA
--- NOTE | 2021-12-17 19:05 | NUR ---
ENDORSED TO GENERAL LITHOGRAPHIC WORKER NURSE JUST[employer] FOR CONTINUITY OF CARE.
--- NOTE | 2021-12-17 19:30 | NUR ---
RECEIVED REPORT FROM RENETTA AGUIRRE. SISTER AT BEDSIDE FEEDING PT; PT EATING VERY SMALL BITES
[2021-12-17] MEDS: SODIUM CHLORIDE FLUSH 10 ML SYR IVF SCH (21:42)
--- NOTE | 2021-12-17 22:24 | NUR ---
PT IS VERY CONFUSED AND AGITATED AND SHE IS REQUESTING THAT THE LIBRARY BE OPENED. CALLED DR. MARTINI AND HE ORDERED AMBIEN 5MG TO BE GIVEN QHS PRN INSOMNIA.
--- NOTE | 2021-12-17 22:27 | NUR ---
PT DRINK THE ENSURE AND A 1/2 CUP OF THICKEN WATER.
[2021-12-17] MEDS ORDERED: ZOLPIDEM 5 MG TAB PO PRN (22:30)
--- NOTE | 2021-12-17 23:15 | NUR ---
PT CLIMBING OUT OF BED. BOTH FEET ON THE FLOOR. ASSISTED BACK TO BED WITH HELP FROM JP AGUIRRE. PT CAUTIONED TO REMAIN IN THE BED WILL GIVE AMBIEN SOON IT IS VERIFIED.
--- NOTE | 2021-12-17 23:36 | NUR ---
KANWAL GIVEN WITH A FULL CUP OF VANILLA PUDDING
[2021-12-18] VITALS (8 sets, daily range): BP systolic 97–112; BP diastolic 50–93
[2021-12-18] MEDS: HYDRAGUARD CREAM TP SCH ×2 (01:03→13:00)
[2021-12-18] MEDS: ACETYLCYSTEINE 10% (100 MG/ML) 100 MG/ML VIAL INH SCH ×6 (02:49→23:00)
[2021-12-18] MEDS: ALBUTEROL SULFATE/IPRATROPIU 3 ML SOL IH SCH ×6 (02:49→23:03)
[2021-12-18] MEDS: PIPERACILLIN/TAZOBACTAM 3.375 GM in DEXTROSE 5% 50 ML IV SCH ×3 (05:30→21:41)
[2021-12-18] MEDS: LEVOTHYROXINE 0.05 MG TAB PO SCH (05:32)
[2021-12-18] MEDS: KCL 20 MEQ/WATER INJ PREMIX 100 ML IV PRN ×2 (06:26→06:28)
--- NOTE | 2021-12-18 07:00 | NUR ---
RECEIVED PT ON HFNC 40L, 30%FIO2, 34.0. PT SATURATION WAS 95%-97%. RIGHT LOBE BS WAS PLURAL FRICTION RUB (GRATING AND CREAKY). TOLERATED TREATMENT AND CPT WELL. WILL CONTINUE TO MONITOR.
--- NOTE | 2021-12-18 07:03 | NUR ---
PT CLIMBED OUT OF BED AGAIN SHE WAS CAUGHT BETWEEN THE RAILS . SHE NEEDS A NEW ORDER FOR RESTRAINTS..CALL PMORENA TO DR. PADRON
--- NOTE | 2021-12-18 07:35 | NUR ---
RECEIVED REPORT FROM [employer] DATA COMMUNICATIONS SOFTWARE CONSULTANT RN. PT CONFUSED, CHAZ. HI-FLOW IN PLACE, 30% FIO2, 40 L. SR ON MONITOR, PICC TO GLENN PATENT AND INTACT. INFUSING NS TKO 5ML/HR AND K RIDER 20 MEQ AT 50 ML/HR. BOWEL SOUNDS ACTIVE IN ALL QUADRANTS. F/C TO GRAVITY DRAINING CLEAR, YELLOW URINE. MODERATE WEAKNESS. HEEL PROTECTOR BOOTS AND SCD'S IN PLACE. STANDARD PRECAUTION. BED IN LOWEST POSITION, CALL LIGHT WITHIN REACH.
--- NOTE | 2021-12-18 08:15 | NUR ---
SISTER AT BEDSIDE. ATE 40% OF BREAKFAST, TOLERATED WELL. WAS TIRED AND ASKED TO CONTINUE EATING LATER.
[2021-12-18] MEDS: POTASSIUM CHLORIDE 20% 40 MEQ/15 ML UDC GT SCH (08:45)
[2021-12-18] MEDS: PANTOPRAZOLE 40 MG INJ VIAL IVP SCH ×2 (08:46→21:41)
[2021-12-18] MEDS: MIDODRINE 5 MG TAB PO SCH ×3 (08:46→16:54)
[2021-12-18] MEDS: ASPIRIN 81 MG TAB.CHEW PO SCH (08:46)
[2021-12-18] MEDS: FUROSEMIDE 20 MG/2 ML VIAL IVP SCH ×2 (08:46→16:54)
[2021-12-18] MEDS: SODIUM CHLORIDE FLUSH 10 ML SYR IVF SCH ×2 (08:47→21:42)
[2021-12-18] MEDS: ENOXAPARIN 40 MG/0.4 ML SYR SUBQ SCH (08:47)
--- NOTE | 2021-12-18 09:15 | NUR ---
SEEN AND EXAMINED BY DR. AYESHA PADRON. NEW ORDERS RECEIVED TO INCREASE SCHEDULED K+ FROM 20 MEQ TO 40 MEQ D/T PERSISTENT LOW K+.
[2021-12-18] MEDS ORDERED: POTASSIUM CHLORIDE 20% 40 MEQ/15 ML UDC GT SCH (10:05)
--- NOTE | 2021-12-18 10:45 | NUR ---
SEEN AND EXAMINED BY DR. STEFANY CUMMINGS. RECEIVED ORDERS TO SWITCH TO OXYMIZER AND INITIATE PT CONSULT.
--- NOTE | 2021-12-18 10:55 | NUR ---
REMOVED PT FROM HFNC PER DR ORDER. CURRENTLY ON 7L OXYMISER. PT SATURATION WAS 95% AND STABLE. NO DISTRESS NOTED. WILL CONTINUE TO MONITOR.
[2021-12-18] MEDS: THERAHONEY GEL 42.5 GM TP SCH (13:00)
[2021-12-18] MEDS: FOAM DRESSING TP SCH (13:00)
--- NOTE | 2021-12-18 13:14 | NUR ---
SISTER AT BEDSIDE. PT CONSUMED 75% OF LUNCH. TOLERATED WELL.
--- NOTE | 2021-12-18 15:05 | NUR ---
SEEN AND EXAMINED BY DR. SOO CERRATO. NO NEW ORDERS RECEIVED.
--- NOTE | 2021-12-18 17:15 | NUR ---
PT DESATED TO THE MID 80S DURING PHYSICAL THERAPY. TURNED LITER FLOW UP TO 10LL. PT'S SATURATION RETURNED TO MID 90'S. SHE IS RESTING COMFORTABLY. WILL CONTINUE TO MONITOR.
--- NOTE | 2021-12-18 19:07 | NUR ---
GAVE REPORT TO GAUTAM ASSEMBLER INSTALLER STRUCTURES RN FOR CONTINUITY OF CARE.
--- NOTE | 2021-12-18 19:20 | NUR ---
@1905 Assumed pt care report received from Thuy at the bedside met pt awake with sister feeding her, vitals signs stable afebrile denies pain awake alert confused oriented to self and person, After assisted in bed repositoned for comfort. Education on care plan pt's sister verbalized understanding. RT also at tghe bedside readjusted O2 via OXYMYZER to 8 liters O2 sat 99% no sign of shortness of breadth. Oral and skin care done. Will continue to monitor and treat as per care plan.
--- NOTE | 2021-12-18 23:06 | NUR ---
LOWERED FIO2 TO 6L OXYMIZER. PATIENTS SATS ARE 99%
--- NOTE | 2021-12-18 23:06 | NUR ---
1950 LOWERED FIO2 TO 8L. PATIENTS SATS 100%
[2021-12-19] VITALS (7 sets, daily range): BP systolic 94–115; BP diastolic 49–62
--- NOTE | 2021-12-19 02:30 | NUR ---
Pt was awake restless repositioned, support at the bedside full bed bath given with CHG, do, wound care tolerated well vitals signs stable, and it was effective as she fell asleep
[2021-12-19] MEDS: ACETYLCYSTEINE 10% (100 MG/ML) 100 MG/ML VIAL INH SCH ×3 (03:03→10:28)
[2021-12-19] MEDS: ALBUTEROL SULFATE/IPRATROPIU 3 ML SOL IH SCH ×3 (03:03→13:28)
[2021-12-19] MEDS: HYDRAGUARD CREAM TP SCH ×2 (03:32→13:10)
[2021-12-19 04:41] LABS: BASOPHILS # (AUTO) 0.1 K/uL (0.00-0.22); BASOPHILS % (AUTO) 1.7 % (0.0-2.0); EOSINOPHILS # (AUTO) 0.2 K/uL (0-0.4); EOSINOPHILS % (AUTO) 3.9 % (0.0-4.0); HEMATOCRIT 25.4 % (36-48); HEMOGLOBIN 8.1 g/dL (12.0-16.0); LYMPHOCYTES # (AUTO) 0.6 K/uL (2.5-16.5); LYMPHOCYTES % (AUTO) 14.8 % (20.5-51.1); MEAN CORPUSCULAR HEMOGLOBIN 28 pg (27-31); MEAN CORPUSCULAR HGB CONC 32 g/dL (33-37); MEAN CORPUSCULAR VOLUME 88.5 fL (80-94); MONOCYTES # (AUTO) 0.5 K/uL (0.8-1.0); MONOCYTES % (AUTO) 12.8 % (1.7-9.3); NEUTROPHILS # (AUTO) 2.6 K/uL (1.8-7.7); NEUTROPHILS % (AUTO) 66.8 % (42.2-75.2); PLATELET COUNT (AUTO) 285 K/uL (140-450); RED BLOOD CELL COUNT(AUTO) 2.87 MIL/uL (4.20-5.40); RED CELL DISTRIBUTION WIDTH 20.9 % (11.6-13.7); WHITE BLOOD COUNT (AUTO) 3.9 K/uL (4.8-10.8)
[2021-12-19 04:47] LABS: ANION GAP 9.2 (8-16); CHLORIDE 105 mmol/L (98-107); CREATININE 0.4 mg/dL (0.6-1.3); GLUCOSE 99 mg/dL (74-106); POTASSIUM 3.2 mmol/L (3.5-5.1); SODIUM SERUM 142 mmol/L (136-145); UREA NITROGEN, BLOOD 20 mg/dL (7-18)
[2021-12-19] MEDS: PIPERACILLIN/TAZOBACTAM 3.375 GM in DEXTROSE 5% 50 ML IV SCH ×3 (05:50→21:43)
[2021-12-19] MEDS: LEVOTHYROXINE 0.05 MG TAB PO SCH (05:50)
[2021-12-19] MEDS: KCL 20 MEQ/WATER INJ PREMIX 100 ML IV PRN (06:54)
--- NOTE | 2021-12-19 07:12 | NUR ---
Potassium was 3.2 KCL 20MEQ IVPB hung as per MD's order. Change of shift report given to September RN at the bedside for continuity of care as at this time no changes in care plan and condition
--- NOTE | 2021-12-19 07:30 | NUR ---
REPRORT RECEIVED FROM MEDICAL LABORATORY SCIENTIST RAILROAD SUPERVISOR OF ENGINES.
--- NOTE | 2021-12-19 08:00 | NUR ---
PATIENT AWAKE AND TALKING. ORIENTED TO NAME ONLY. REORIENTED TO PLACE AND TIME. HEART SOUNDS REGULAR. SYSTOLIC MURMUR AUSCULTATED. MONITOR SHOWS SR. GLENN PICC LINE IN PLACE. NS AND KCL 20MEQ REPLACEMENT INFUSING. O2 AT 6L/NC. ANTERIOR/LATERAL BREATH SOUNDS WITH CRACKLES BILATERALLY. YUD753%. HYPOACTIVE BOWEL SOUNDS IN ALL QUADRANTS. ABDOMEN SOFT, NONTENDER. MILLER IN PLACE WITH YELLOW URINE.
[2021-12-19] MEDS: ENOXAPARIN 40 MG/0.4 ML SYR SUBQ SCH (08:58)
[2021-12-19] MEDS ORDERED: POTASSIUM CHLORIDE 20% 40 MEQ/15 ML UDC GT SCH (09:00)
[2021-12-19] MEDS: PANTOPRAZOLE 40 MG INJ VIAL IVP SCH ×2 (09:11→21:44)
[2021-12-19] MEDS: FUROSEMIDE 20 MG/2 ML VIAL IVP SCH ×3 (09:11→17:02)
[2021-12-19] MEDS: SODIUM CHLORIDE FLUSH 10 ML SYR IVF SCH ×2 (09:11→21:43)
[2021-12-19] MEDS: MIDODRINE 5 MG TAB PO SCH ×3 (09:12→16:46)
[2021-12-19] MEDS: ASPIRIN 81 MG TAB.CHEW PO SCH (09:12)
--- NOTE | 2021-12-19 09:40 | NUR ---
REVIEWED [facility] THERAPY, CPT, CHEST XRAY AND OXYGEN SATURATION WITH DR. CUMMINGS. DC MUCOMYST, CPT AND CHANGED DUO FROM Q4 TO Q6. TITRATED O2 FROM 6L NASAL CANNULA TO 2L NC IF TOLERATED.
--- NOTE | 2021-12-19 09:45 | NUR ---
DR. CUMMINGS HERE TO SEE PATIENT. UPDATED ON LABS AND STATUS. SPOKE WITH PATIENTS SISTER. O2 DECREASED TO 2L/NC. SAO2 94%
--- NOTE | 2021-12-19 11:09 | NUR ---
(12/19/21) RD FOLLOW UP COMPLETED PLEASE REFER TO NUTRITION PROGRESS NOTE UNDER CARE ACTIVITY FOR ESTIMATED NUTRITION NEEDS. RD RECOMMENDATIONS: 1. CONTINUE REGULAR MECHANICAL SOFT DIET WITH NECTAR THICK LIQUIDS TOLERATED 2. CONTINUE ENSURE TID AND MARK BID FOR NUTRITION SUPPORT AND WOUND HEALING 3. RD TO FOLLOW-UP 2-3 DAYS, HIGH RISK JULIA VIDAL MS, RDN
[2021-12-19] MEDS: FOAM DRESSING TP SCH (13:09)
[2021-12-19] MEDS: THERAHONEY GEL 42.5 GM TP SCH (13:10)
--- NOTE | 2021-12-19 14:21 | NUR ---
REPORT GIVEN TO TIMOTHY SERRANO. PATIENT TRANSFERRED BY BED.
--- NOTE | 2021-12-19 14:35 | NUR ---
PATIENT WHEEL BY ICU STAFF ON A GURNEY. PATIENT AWAKE ABLE TO RESPONDS VERBALLY RESPIRATION CARLITO AND NOT LABORED NO SHORTNESS OF BREATH. ORIENTED TO ROOM CALL LIGHT, BATHROOM, VISITING HOURS AND MEAL TIME.
[2021-12-19] MEDS: ACETAMINOPHEN 325 MG TAB PO PRN (16:46)
--- NOTE | 2021-12-19 17:06 | NUR ---
PATIENT SISTER REFUSED ADMINISTRATION OF MEDICATION LASIX, STATED PT HAS LOST TOO MUCH FLUID AND WEIGHT. SHE STATED ALREADY TALKED TO THE DR. LÓPEZ NOTIFY DR. PADRON.
--- NOTE | 2021-12-19 19:43 | NUR ---
PATIENT AWAKE, SISTER AT BED SIDE. GIVEN REPORT FOR PLANT SECURITY GUARD NURSE FOR CONTINUITY OF CARE.
[2021-12-20] VITALS: BP 112/59
--- NOTE | 2021-12-20 01:09 | NUR ---
PATIENT AWAKE ALERT HARD AT HEARING HAS 4 LITERS ON N/C SAT 94% PATIENT WAS EXTUBATED 12/16/21 PATIENT LUNGS DIMINISH SINUS ON MONITOR TEMP 98.7 PATIENT HAS RIGHT PICC LINE PATENT . HAS F/C DRAINING YELLOW URINE.
[2021-12-20] MEDS: HYDRAGUARD CREAM TP SCH ×2 (01:27→13:29)
[2021-12-20 04:00] VITALS: BP 114/56
[2021-12-20] MEDS: PIPERACILLIN/TAZOBACTAM 3.375 GM in DEXTROSE 5% 50 ML IV SCH ×3 (04:56→21:56)
[2021-12-20] MEDS: LEVOTHYROXINE 0.05 MG TAB PO SCH (06:30)
--- NOTE | 2021-12-20 07:46 | NUR ---
RECEIVED REPORT FROM REEL TENDER NURSE FOR CONTINUITY OF CARE. PT IS AWAKE IN BED. RESPIRATIONS EVEN AND UNLABORED ON 3L NC. NO DISTRESS NOTED. DENIES PAIN. PT HAS MILLER CATHETER IN PLACE, INTACT. GLENN PICC, KVO. NOTED STAGE 2 ULCER AT COCCYX COVERED WITH HEART SHAPED BANDAGE. CALL LIGHT WITHIN REACH. SAFETY PRECAUTIONS IN PLACE. WILL CONTINUE TO MONITOR.
[2021-12-20] MEDS: ALBUTEROL SULFATE/IPRATROPIU 3 ML SOL IH SCH ×3 (07:54→19:34)
[2021-12-20 08:00] VITALS: BP 98/48
[2021-12-20] MEDS ORDERED: DOCUSATE 100 MG/10 ML UDC PO PRN (08:12)
[2021-12-20] MEDS: SODIUM CHLORIDE FLUSH 10 ML SYR IVF SCH ×2 (09:00→21:56)
[2021-12-20] MEDS: PANTOPRAZOLE 40 MG INJ VIAL IVP SCH (09:00)
[2021-12-20] MEDS: FUROSEMIDE 20 MG/2 ML VIAL IVP SCH (09:00)
--- NOTE | 2021-12-20 10:00 | NUR ---
ADMINISTERED SCHEDULED MORNING MEDS. PT TEACHING ABOUT MEDS GIVEN. PT VERBALIZED UNDERSTANDING. TIMOTHY AUSTIN ADMINISTERED IV MEDS.
[2021-12-20] MEDS: MIDODRINE 5 MG TAB PO SCH ×3 (10:01→18:15)
[2021-12-20] MEDS: ASPIRIN 81 MG TAB.CHEW PO SCH (10:01)
[2021-12-20] MEDS: POTASSIUM CHLORIDE 20% 40 MEQ/15 ML UDC PO SCH (10:02)
[2021-12-20] MEDS: ENOXAPARIN 40 MG/0.4 ML SYR SUBQ SCH (10:03)
--- NOTE | 2021-12-20 11:00 | NUR ---
DR PADRON ORDERED TO CHANGE PROTONIX TO PO. START PT SIT DOWN IN CHAIR AND SEE IF PT CAN TOLERATE.
[2021-12-20 12:00] VITALS: BP 107/47
[2021-12-20] MEDS: THERAHONEY GEL 42.5 GM TP SCH (13:29)
[2021-12-20] MEDS: FOAM DRESSING TP SCH (13:29)
--- NOTE | 2021-12-20 13:35 | NUR ---
IV ABX ADMINISTERED BY TIMOTHY AUSTIN. NO ADVERSE REACTION NOTED.
--- NOTE | 2021-12-20 15:05 | NUR ---
DID ROUNDS: PT LYING IN BED, SLEEPING. BREATHING EVEN AND UNLABORED. NO DISTRESS NOTED. NO COMPLAINTS OF PAIN. SAFETY PRECAUTIONS IN PLACE.
[2021-12-20 16:00] VITALS: BP 124/62
--- NOTE | 2021-12-20 17:45 | NUR ---
ASSISTED CUSTOMER RESOURCE SPECIALIST IN CLEANING PT. PT TOLERATED WELL. PT REMAINED CLEAN AND DRY. DRESSING N COCCYX ARE DRY AND CLEAN. NO DISTRESS NOTED. CALL LIGHT WITHIN REACH. SAFETY PRECAUTIONS IN PLACE. WILL CONTINUE TO MONITOR.
--- NOTE | 2021-12-20 19:29 | NUR ---
RECEIVED ENDORSEMENT FROM DAY SHIFT NURSE FOR CONTINUITY OF PT CARE.
--- NOTE | 2021-12-20 19:30 | NUR ---
ENDORSED PT TO INSURANCE ACCOUNT REPRESENTATIVE NURSE FOR CONTINUITY OF CARE. ALL NEEDS MET THROUGHOUT SHIFT. PT IS STABLE.
[2021-12-20 20:00] VITALS: BP 106/58
[2021-12-20] MEDS: PANTOPRAZOLE 40 MG TABEC PO SCH (21:56)
--- NOTE | 2021-12-20 22:00 | NUR ---
PT ATE 20% OF HER DINNER.
--- NOTE | 2021-12-20 22:00 | NUR ---
PT AWAKE, ALERT AND VERBALIZED NEEDS.
[2021-12-21] VITALS: BP 121/60
[2021-12-21] MEDS: HYDRAGUARD CREAM TP SCH ×2 (01:26→13:18)
[2021-12-21 04:00] VITALS: BP 129/55
[2021-12-21] MEDS: PIPERACILLIN/TAZOBACTAM 3.375 GM in DEXTROSE 5% 50 ML IV SCH ×3 (05:00→20:50)
[2021-12-21] MEDS: LEVOTHYROXINE 0.05 MG TAB PO SCH (06:22)
--- NOTE | 2021-12-21 07:15 | NUR ---
PT IS ON STABLE CONDITION AND ASLEEP. ENDORSED TO DAY SHIFT NURSE FOR CONTINUITY OF PT CARE. PICC LINE 2 LUMENS INTACT AND PATENT.
--- NOTE | 2021-12-21 07:16 | NUR ---
RECEIVED REPORT FROM BANK MANAGER NURSE FOR CONTINUITY OF CARE. PATIENT ASLEEP. RESPIRATION EVEN ND NOT LABORED. ON 3.5 LITER OF O2 VIA NASAL CANULA. PT. WITH PICC LINE ON RIGHT UPPER ARM DOUBLE LUMEN KVO. CALL LIGHT WITH IN EASY REACH. MILLER CATHETER DRAINING CLEAR YELLOW URINE. ON WOUND BED FOR WOUND MANAGEMENT.
[2021-12-21] MEDS: ALBUTEROL SULFATE/IPRATROPIU 3 ML SOL IH SCH ×3 (07:23→19:52)
[2021-12-21 08:00] VITALS: BP 90/53
[2021-12-21] MEDS: PANTOPRAZOLE 40 MG TABEC PO SCH ×2 (09:05→20:50)
[2021-12-21] MEDS: MIDODRINE 5 MG TAB PO SCH ×3 (09:05→18:14)
[2021-12-21] MEDS: POTASSIUM CHLORIDE 20% 40 MEQ/15 ML UDC PO SCH (09:05)
[2021-12-21] MEDS: FUROSEMIDE 20 MG TAB PO SCH (09:06)
[2021-12-21] MEDS: ASPIRIN 81 MG TAB.CHEW PO SCH (09:06)
[2021-12-21] MEDS: ENOXAPARIN 40 MG/0.4 ML SYR SUBQ SCH (09:07)
--- NOTE | 2021-12-21 09:11 | NUR ---
SISTER AT BED SIDE ASSISTING PATIENT TO EAT BREAKFAST.
--- NOTE | 2021-12-21 09:27 | NUR ---
GIVEN ALL HER MEDICATION TOLERATED WELL. REPOSITIONED PATIENT. NO COUGH OR CONGESTION ABLE TO TOLERATE THIN LIQUID SISTER IS GIVING HER THIN LIQUID.
[2021-12-21] MEDS: SODIUM CHLORIDE FLUSH 10 ML SYR IVF SCH ×2 (09:49→20:50)
[2021-12-21 10:05] LABS: BASOPHILS # (AUTO) 0.1 K/uL (0.00-0.22); BASOPHILS % (AUTO) 2.4 % (0.0-2.0); EOSINOPHILS # (AUTO) 0.1 K/uL (0-0.4); EOSINOPHILS % (AUTO) 3.1 % (0.0-4.0); HEMATOCRIT 29.6 % (36-48); HEMOGLOBIN 9.2 g/dL (12.0-16.0); LYMPHOCYTES # (AUTO) 0.5 K/uL (2.5-16.5); LYMPHOCYTES % (AUTO) 14.6 % (20.5-51.1); MEAN CORPUSCULAR HEMOGLOBIN 28 pg (27-31); MEAN CORPUSCULAR HGB CONC 31 g/dL (33-37); MEAN CORPUSCULAR VOLUME 89.7 fL (80-94); MONOCYTES # (AUTO) 0.4 K/uL (0.8-1.0); MONOCYTES % (AUTO) 12.4 % (1.7-9.3); NEUTROPHILS # (AUTO) 2.4 K/uL (1.8-7.7); NEUTROPHILS % (AUTO) 67.5 % (42.2-75.2); PLATELET COUNT (AUTO) 288 K/uL (140-450); RED CELL DISTRIBUTION WIDTH 20.6 % (11.6-13.7); WHITE BLOOD COUNT (AUTO) 3.5 K/uL (4.8-10.8)
[2021-12-21 10:13] LABS: ANION GAP 9.8 (8-16); CARBON DIOXIDE 29.5 mmol/L (21-32); CHLORIDE 103 mmol/L (98-107); CREATININE 0.5 mg/dL (0.6-1.3); GLUCOSE 128 mg/dL (74-106); POTASSIUM 3.3 mmol/L (3.5-5.1); SODIUM SERUM 139 mmol/L (136-145); UREA NITROGEN, BLOOD 17 mg/dL (7-18)
[2021-12-21 10:18] LABS: MAGNESIUM 2.3 mg/dL (1.8-2.4); PHOSPHORUS 3.6 mg/dL (2.5-4.9)
--- NOTE | 2021-12-21 10:56 | NUR ---
WOUND CARE RE-EVALUATION NOTE: SKIN ASSESSMENT DONE WITH PRIMARY NURSE SHER AND BLAINE RN. PT. IS AWAKE ALERT,VERBALIZES NEEDS IN SETSWANA.POC DISCUSSED WITH PT. AND SISTER. ALL QUESTIONS ANSWERED. SACRALCOCCYX WOUND PHOTO OBTAINED, BOTH SHER AND BLAINE WITNESS WOUND IS HEALING WITH RESURFACING AND NO S/S OF INFECTION. POC DISCUSSED, WILL CONTINUE SACRALCOCCYXY TX WITH THERAHONEY GEL AND FOAM DRESSING DAILY. PT. WITH INCONTINENT OF BOWEL X1 DURING ASSESSMENT. GOOD GINGER CARE PROVIDE. PT. IS DRY AND CLEAN. -SACRAL COCCYX PRESSURE INJURY RESURFACING WITH PARTIAL THICKNESS SKIN LOSS. WOUND BED 2X3X0.1 CM WITH 100 % PINK TISSUE AND WOUND BED MOIST, NO ODOR, WOUND EDGE FLAT, GINGER-WOUND SURROUNDING SKIN PURPLE COLOR REMAIN AND SKIN INTACT.
[2021-12-21 12:00] VITALS: BP 100/56
--- NOTE | 2021-12-21 12:55 | NUR ---
PT EATING AT THIS TIME, WILL RETURN IN 60 MINS.
[2021-12-21] MEDS: THERAHONEY GEL 42.5 GM TP SCH (13:18)
[2021-12-21] MEDS: FOAM DRESSING TP SCH (13:18)
[2021-12-21 16:00] VITALS: BP 106/52
--- NOTE | 2021-12-21 16:38 | NUR ---
PATIENT ASLEEP NO DISTRESS NOTED SISTER AT BED SIDE. ALL SAFETY MEASURE IN PLACE.
--- NOTE | 2021-12-21 19:15 | NUR ---
GAVE REPORT TO GYM MANAGER NURSE FOR CONTINUITY OF CARE. PATIENT AWAKE SISTER AT BED SIDE.
--- NOTE | 2021-12-21 19:20 | NUR ---
RECEIVED PATIENT IN BED, AWAKE,ALERT AND ORIENTED X 4. FAMILY MEMBER AT THE BEDSIDE. DENIES PAIN. DENIES SHORTNESS OF BREATH. SKIN WARM AND DRY TO TOUCH. BED IN THE LOWEST AND LOCKED POSITION FOR SAFETY, CALL LIGHT WITHIN REACH.
[2021-12-21 20:00] VITALS: BP 110/56
[2021-12-21] MEDS: ACETAMINOPHEN 325 MG TAB PO PRN (23:56)
--- NOTE | 2021-12-21 23:56 | NUR ---
PATIENT COMPLAINING OF 3/10 RIGHT THIGH PAIN, MEDICATED WITH TYLENOL ORDERED. REPOSITIONED FOR COMFORT.
[2021-12-22] VITALS: BP_SYST 109; BP_SYST 118; BP_DIAS 57; BP_DIAS 60
--- NOTE | 2021-12-22 00:40 | NUR ---
G-TUBE RESIDUAL RE CHECKED-NOTED 150 ML AT THIS TIME, FEEDING STILL ON HOLD AT THIS TIME. HEAD OF THE BED ELEVATED AT 35 DEGREES FOR ASPIRATION PRECAUTION. Addendum: 12/22/21 at 0059 by Maricel Martins RN WRONG PATIENT.
--- NOTE | 2021-12-22 00:56 | NUR ---
RE-ASSESSED FOR PAIN, PATIENT ASLEEP AT THIS TIME. NO S/SX OF PAIN NOR DISCOMFORT. CALL LIGHT WITHIN REACH.
[2021-12-22] MEDS: HYDRAGUARD CREAM TP SCH ×2 (01:02→13:00)
[2021-12-22] MEDS: ALBUTEROL SULFATE/IPRATROPIU 3 ML SOL IH SCH ×4 (01:06→19:48)
[2021-12-22 04:00] VITALS: BP 111/70
[2021-12-22] MEDS: PIPERACILLIN/TAZOBACTAM 3.375 GM in DEXTROSE 5% 50 ML IV SCH ×3 (04:07→21:20)
--- NOTE | 2021-12-22 04:16 | NUR ---
PATIENT IS ASLEEP. BREATHING EVEN AND UNLABORED. CALL LIGHT WITHIN REACH.
--- NOTE | 2021-12-22 05:30 | NUR ---
AM CARE RENDERED. MADE COMFORTABLE IN BED. CALL LIGHT WITHIN REACH.
[2021-12-22 05:35] LABS: BASOPHILS # (AUTO) 0.1 K/uL (0.00-0.22); BASOPHILS % (AUTO) 1.6 % (0.0-2.0); EOSINOPHILS # (AUTO) 0.1 K/uL (0-0.4); EOSINOPHILS % (AUTO) 3.6 % (0.0-4.0); HEMATOCRIT 25.3 % (36-48); HEMOGLOBIN 8.2 g/dL (12.0-16.0); LYMPHOCYTES # (AUTO) 0.7 K/uL (2.5-16.5); LYMPHOCYTES % (AUTO) 18.9 % (20.5-51.1); MEAN CORPUSCULAR HEMOGLOBIN 28 pg (27-31); MEAN CORPUSCULAR HGB CONC 32 g/dL (33-37); MONOCYTES # (AUTO) 0.5 K/uL (0.8-1.0); MONOCYTES % (AUTO) 14.4 % (1.7-9.3); NEUTROPHILS # (AUTO) 2.1 K/uL (1.8-7.7); NEUTROPHILS % (AUTO) 61.5 % (42.2-75.2); PLATELET COUNT (AUTO) 247 K/uL (140-450); RED BLOOD CELL COUNT(AUTO) 2.88 MIL/uL (4.20-5.40); RED CELL DISTRIBUTION WIDTH 20.2 % (11.6-13.7); WHITE BLOOD COUNT (AUTO) 3.5 K/uL (4.8-10.8)
[2021-12-22] MEDS: LEVOTHYROXINE 0.05 MG TAB PO SCH (05:35)
[2021-12-22 05:48] LABS: ANION GAP 11.1 (8-16); CARBON DIOXIDE 26.5 mmol/L (21-32); CHLORIDE 104 mmol/L (98-107); CREATININE 0.4 mg/dL (0.6-1.3); GLUCOSE 95 mg/dL (74-106); POTASSIUM 3.6 mmol/L (3.5-5.1); SODIUM SERUM 138 mmol/L (136-145); UREA NITROGEN, BLOOD 19 mg/dL (7-18)
--- NOTE | 2021-12-22 06:12 | NUR ---
PROVIDED WARM BLANKET. ALL NEEDS ATTENDED TO. NO DISTRESS NOTED. SAFETY PRECAUTIONS MAINTAINED DURING THE SHIFT, CALL LIGHT REMAINED WITHIN REACH.
--- NOTE | 2021-12-22 07:08 | NUR ---
ENDORSED CARE TO AM NURSE FOR CONTINUITY OF CARE.
--- NOTE | 2021-12-22 07:15 | NUR ---
RECEIVED ENDORSEMENT FROM DENTAL TECHNICIAN APPRENTICE NURSE FOR CONTINUITY OF CARE. PATIENT ASLEEP NO DISTRESS NOTED RESPIRATION EVEN AND NOT IN LABORED ON 4 L O2 VIA NASAL CANULA. MILLER CATHETER DRAINING WELL WITH YELLOW URINE NO HEMATURIA. WOUND BED WORKING PROPERLY. CALL LIGHT WITH IN EASY REACH.
[2021-12-22 08:00] VITALS: BP 113/56
--- NOTE | 2021-12-22 08:22 | NUR ---
DR. PADRON AT BED SIDE.
[2021-12-22] MEDS: SODIUM CHLORIDE FLUSH 10 ML SYR IVF SCH ×2 (09:00→21:20)
[2021-12-22] MEDS: PANTOPRAZOLE 40 MG TABEC PO SCH ×2 (09:34→21:21)
[2021-12-22] MEDS: ASPIRIN 81 MG TAB.CHEW PO SCH (09:34)
[2021-12-22] MEDS: MIDODRINE 5 MG TAB PO SCH ×3 (09:34→17:52)
[2021-12-22] MEDS: FUROSEMIDE 20 MG TAB PO SCH (09:35)
[2021-12-22] MEDS: POTASSIUM CHLORIDE 20% 40 MEQ/15 ML UDC PO SCH (09:35)
[2021-12-22] MEDS: ENOXAPARIN 40 MG/0.4 ML SYR SUBQ SCH (09:36)
--- NOTE | 2021-12-22 09:43 | NUR ---
GIVEN ALL DUE MEDICATION.
--- NOTE | 2021-12-22 10:00 | NUR ---
PATIENT HAD BOWEL MOVEMENT. PHARMACY TECHNOLOGIST AND I ASSIST PATIENT WITH BED BATH AND DRESSING CHANGE TOOK PICTURE ALSO.
--- NOTE | 2021-12-22 11:20 | NUR ---
PT HAD THERAPY WITH PATIENT SIT TO STAND 5X AND WITH SIDE STEP MAXIMUM ASSIST. SIT AT EDGE OF BED FOR 20 MINUTE.
--- NOTE | 2021-12-22 11:25 | NUR ---
RT AT BED SIDE AT THIS TIME.
[2021-12-22 12:00] VITALS: BP 110/58
--- NOTE | 2021-12-22 12:13 | NUR ---
PHYSICAL THERAPY CO-SIGN The Physical Therapy Progress Notes documented by Optical Glass Sawyer have been reviewed. Reviewed/Co-Signed by: Lizzy Calles Documentation Done by: CHANELL STOCK PTA Addendum: 12/22/21 at 1214 by Lizzy Calles PT Amended: Links added.
[2021-12-22] MEDS: FOAM DRESSING TP SCH (13:00)
[2021-12-22] MEDS: THERAHONEY GEL 42.5 GM TP SCH (13:00)
--- NOTE | 2021-12-22 13:34 | NUR ---
TOOL PROFILING MACHINE SET UP OPERATOR SPOKE TO PATIENT SISTER REGARDING DISCHARGE THAT SHE JUST NEED TO BRING PATIENT OXYGEN TANK. BUT PATIENT SISTER KEEP ON INSISTING THAT RELIGION PROFESSOR TO ORDER FOR HER FROM INSURANCE EVEN THOUGH THE RELIGION PROFESSOR EXPLAIN THAT SHE HAS ONE ALREADY FROM HOME THAT DELIVERED BEFORE AND THEY CANT PROVIDE ANOTHER ONE. OFFERED TO ARRANGE TRANSPORTATION WITH OXYGEN BUT SHE REFUSED SHE SAID SHE DOESN'T WANT ANY BODY GOES TO HER HOUSE. SHE SAID THAT SHE HER NEIGHBOR WILL HELP HER IF SHE CALL THEM. SHE SAID SHE WILL GET THE OXYGEN SO SHE CAN BE DISCHARGE. PATIENT SISTER VERY UPSET ABOUT THE OXYGEN NOT DELIVER TODAY EVEN THOUGH WITH SEVERAL TIME TO EXPLAINED TO HER THAT THEY WON'T DELIVER AGAIN BECAUSE SHE HAVE THE TANK ON HER HOME.
[2021-12-22] MEDS ORDERED: SYN.05 PO (14:44)
[2021-12-22] MEDS ORDERED: ALBU3SOL83 IH (14:44)
[2021-12-22] MEDS ORDERED: ASPI-1822 PO (14:44)
[2021-12-22] MEDS ORDERED: PRO5 PO (14:44)
[2021-12-22] MEDS ORDERED: FURO-572 PO (14:45)
--- NOTE | 2021-12-22 15:08 | NUR ---
DISCHARGE PLANNING SW CALL SONJA Basurto AT SPOKE TO DISPATCHER CIELO. SW ASK HER TO DO A WELFARE CHECK ON PATIENT AND HER SISTER AT HOME TO MAKE SURE THAT PATIENT AND SISTER ARE ABLE TO BE IN THEIR HOME. PATIENT'S SISTER HAS BEEN A BIT RESISTANT TO HAVE ASSISTANCE AT HOME AND THESE NEON TECHNICIAN. JUST WANT TO MAKE SURE BOTH ARE SAFE IN THEIR ENVIRONMENT. PER DISPATCHER CIELO SHE WILL BE SENDING AN OFFICER TO JUST CHECK ON THEM TO MAKE SURE BOTH ARE SAFE.
[2021-12-22 16:00] VITALS: BP 94/55
--- NOTE | 2021-12-22 16:12 | NUR ---
12/22/21 RD FOLLOW UP COMPLETED PLEASE REFER TO NUTRITION ASSESSMENT UNDER CARE ACTIVITY FOR ESTIMATED NUTRITIONAL NEEDS. 1. CONTINUE REGULAR MECHANICAL SOFT DIET WITH NECTAR THICK LIQUIDS TOLERATED 2. CONTINUE ENSURE TID AND MARK BID FOR NUTRITION SUPPORT AND WOUND HEALING 3. RD TO FOLLOW-UP 3-5 DAYS, MODERATE RISK SAMUEL MODI RD
--- NOTE | 2021-12-22 16:20 | NUR ---
[facility] CALLED ASKING WHEN IS THE PATIENT GOING TO BE DISCHARGE SO THEY CAN SCHEDULE PATIENT VISIT TOMORROW. THEY SAID SHE CAN'T CONTACT THE SISTER. I TOLD HER THAT SISTER IS HERE. I GAVE THE PHONE TO THE SISTER SHE SPOKE TO SISTER.
--- NOTE | 2021-12-22 17:45 | NUR ---
I EXPLAINED THE DISCHARGE PACKET PATIENT SISTER AND SHE TOLD ME THAT HER PHARMACY NEED TO BE CHANGE INFORM DR. PADRON AND WHEN I TOLD HER SHE CHANGE AGAIN HER MIND THAT ITS OKAY THE [facility]. OFFERED TO ARRANGE TRANSPORTATION WITH OXYGEN AND EXPLAINED TO HER THAT ITS SAFER FOR HER TO HAVE HELP. ENGRAVER AUTOMATIC OFFERED SNF BUT SHE REFUSED.
[2021-12-22 20:00] VITALS: BP 94/55
--- NOTE | 2021-12-22 20:00 | NUR ---
RECEIVED PT FROM MORNING SHIFT NURSE. PT IS LYING ON THE BED WITH HER SISTER SITTING ON THE CHAIR. PT IS AOX3, AND ABLE TO VERBALIZE NEEDS. PT IS ON REGULAR DIET AND ON 3L NC. PT HAS R UPPER ARM PICC LINE 2X LUMEN RUNNING WITH NS AT TKO. PT HAS A MILLER CATHETER AND PRESSURE ULCER STAGE 2 ON SACRALCOCCYX. PT IS WAITING FOR PORTABLE OXYGEN AND WILL BE DISCHARGED. ALL SAFETY MEASURES IMPLEMENTED. CALL LIGHT WITHIN REACH, BED IN LOW POSITION AND BED WHEELS LOCK.
--- NOTE | 2021-12-22 21:20 | NUR ---
ALL SCHEDULE MEDICATION WAS GIVEN TO PT PER MD ORDER. PT TOLERATED IT WELL. ALL SAFETY MEASURES IMPLEMENTED. CALL LIGHT WITHIN REACH.
--- NOTE | 2021-12-22 23:00 | NUR ---
ICE CHIPS WAS GIVEN TO PT PER PT REQUEST. CALL LIGHT WITHIN REACH. ALL SAFETY MEASURES IMPLEMENTED.
[2021-12-23] VITALS: BP 108/51
[2021-12-23] MEDS: ALBUTEROL SULFATE/IPRATROPIU 3 ML SOL IH SCH ×3 (01:00→12:08)
--- NOTE | 2021-12-23 01:00 | NUR ---
PT IS ON SLEEP, CHEST RISE AND FALL SYMMETRICALLY NOTED SATING AT 92% WITH NORMAL SINUS RHYTHM. CALL LIGHT WITHIN REACH. ALL SAFETY MEASURES IMPLEMENTED.
[2021-12-23] MEDS: HYDRAGUARD CREAM TP SCH (01:12)
--- NOTE | 2021-12-23 03:30 | NUR ---
PT ABDOMEN WAS CLEANED PER PT REQUEST. BED WHEELS LOCKED, CALL LIGHT WITHIN REACH AND ALL SAFETY MEASURES IMPLEMENTED.
[2021-12-23 04:00] VITALS: BP 106/50
--- NOTE | 2021-12-23 05:00 | NUR ---
MORNING CARE WAS GIVEN TO PT. CHANGED DIAPER AND MILLER CATHETER CARE. PT TOLERATE IT WELL. ALL SAFETY MEASURES IMPLEMENTED.
[2021-12-23] MEDS: PIPERACILLIN/TAZOBACTAM 3.375 GM in DEXTROSE 5% 50 ML IV SCH (05:06)
[2021-12-23 06:12] LABS: BASOPHILS # (AUTO) 0.1 K/uL (0.00-0.22); BASOPHILS % (AUTO) 1.4 % (0.0-2.0); EOSINOPHILS # (AUTO) 0.2 K/uL (0-0.4); EOSINOPHILS % (AUTO) 5.2 % (0.0-4.0); HEMATOCRIT 25.3 % (36-48); HEMOGLOBIN 8.2 g/dL (12.0-16.0); LYMPHOCYTES # (AUTO) 0.7 K/uL (2.5-16.5); LYMPHOCYTES % (AUTO) 17.5 % (20.5-51.1); MEAN CORPUSCULAR HEMOGLOBIN 29 pg (27-31); MEAN CORPUSCULAR HGB CONC 32 g/dL (33-37); MEAN CORPUSCULAR VOLUME 88.8 fL (80-94); MONOCYTES # (AUTO) 0.5 K/uL (0.8-1.0); MONOCYTES % (AUTO) 13.7 % (1.7-9.3); NEUTROPHILS # (AUTO) 2.4 K/uL (1.8-7.7); NEUTROPHILS % (AUTO) 62.2 % (42.2-75.2); PLATELET COUNT (AUTO) 257 K/uL (140-450); RED BLOOD CELL COUNT(AUTO) 2.85 MIL/uL (4.20-5.40); RED CELL DISTRIBUTION WIDTH 19.8 % (11.6-13.7); WHITE BLOOD COUNT (AUTO) 3.8 K/uL (4.8-10.8)
[2021-12-23] MEDS: LEVOTHYROXINE 0.05 MG TAB PO SCH (06:36)
[2021-12-23 07:04] LABS: ANION GAP 8.2 (8-16); CARBON DIOXIDE 29.4 mmol/L (21-32); CHLORIDE 104 mmol/L (98-107); CREATININE 0.4 mg/dL (0.6-1.3); GLUCOSE 89 mg/dL (74-106); POTASSIUM 3.6 mmol/L (3.5-5.1); SODIUM SERUM 138 mmol/L (136-145); UREA NITROGEN, BLOOD 15 mg/dL (7-18)
--- NOTE | 2021-12-23 07:19 | NUR ---
PT IS STABLE. ENDORSED PT TO MORNING SHIFT FOR CONTINUITY OF CARE.
--- NOTE | 2021-12-23 07:20 | NUR ---
RECEIVED REPORT FROM NIGHTSHIFT NURSE DORA AND JOSE FOR CONTINUITY OF CARE. PT IN STABLE CONDITION, CURRENTLY SLEEPING A/OX2. PT IS BREATHING EVEN, REGULAR AND UNLABORED ON 3L NC. PT IS INCONTINENT OF THE BOWEL AND MILLER IS PATENT AND HANGING TO GRAVITY. STAGE 2 PI NOTED ON SACRUM. PT DENIES PAIN AT THIS TIME, NO SIGNS OF DISTRESS NOTED.
[2021-12-23 08:00] VITALS: BP 98/49
--- NOTE | 2021-12-23 08:20 | NUR ---
PHYSICAL THERAPY AT THE BEDSIDE, PT DENIES ANY PAIN OR DISTRESS AT THIS TIME.
[2021-12-23] MEDS: PANTOPRAZOLE 40 MG TABEC PO SCH (09:15)
[2021-12-23] MEDS: MIDODRINE 5 MG TAB PO SCH (09:15)
[2021-12-23] MEDS: FUROSEMIDE 20 MG TAB PO SCH (09:15)
[2021-12-23] MEDS: POTASSIUM CHLORIDE 20% 40 MEQ/15 ML UDC PO SCH (09:15)
[2021-12-23] MEDS: ASPIRIN 81 MG TAB.CHEW PO SCH (09:15)
[2021-12-23] MEDS: ENOXAPARIN 40 MG/0.4 ML SYR SUBQ SCH (09:24)
[2021-12-23] MEDS: SODIUM CHLORIDE FLUSH 10 ML SYR IVF SCH (09:25)
--- NOTE | 2021-12-23 09:35 | NUR ---
GAVE WATER AND ICE CHIPS PER REQUEST. DISCUSSED NOT TO FARR PATIENT WHILE FEEDING HER. LET HER CHEW AND SHALLOW BEFORE GIVING HER ANOTHER BITE. PATIENTS SISTER PAUL SAID SHE UNDERSTOOD AND WOULD NOT FARR HER.
--- NOTE | 2021-12-23 10:59 | NUR ---
PHYSICAL THERAPY CO-SIGN The Physical Therapy Progress Notes documented by Manager [employer] have been reviewed. Reviewed/Co-Signed by: Lizzy Calles Documentation Done by: CHANELL STOCK PTA Addendum: 12/23/21 at 1100 by Lizzy Calles PT Amended: Links added.
--- NOTE | 2021-12-23 11:00 | NUR ---
PER PHYSICAL THERAPIST, PT WAS UNABLE TO SIT UP IN CHAIR WITHOUT ALMOST FALLING, AND UNABLE TO AMBULATE WITHOUT MAXIMUM ASSISTANCE. PROTOTYPE ENGINEER AND BROKE MAN AT THE BEDSIDE DISCUSSING DISCHARGE PLANNING AND TRANSPORTATION. PT'S SISTER WAS RELUCTANT TO USE TRANSPORTATION DUE TO COST, HOWEVER, WAS AMENABLE AFTER DISCUSSING USE OF O2 WHILE TRANSPORTING AND OVERALL INCREASED SAFETY.
--- NOTE | 2021-12-23 11:34 | NUR ---
DISCHARGE PLANNING SW MET WITH PATIENT AND WITH HER SISTER AT BEDSIDE TO DISCUSS DISCHARGE AND FOLLOW UP CARE. PATIENT WAS SLEEP AND UNABLE TO SPEAK SW DISCUSS WITH PATIENT'S SISTER THE IMPORTANCE OF CALLING THE OXYGEN COMPANY TO COME TO HER HOME TO CHECK HER OXYGEN EN AND FOLLOW UP WITH HER CARE. PER SISTER SHE WAS RESISTENT THAT SOMEONE COMES TO HER HOME. BRANDON EXPLAINED IT IS NECESSARY THAT PATIENT HAS HER OXYGEN. BRANDON ENDED THE MEETING SW CALL [facility] AT AND MAKE AN APS REPORT WITH STUDENT EDUCATION SPECIALIST LLOYD parrish REFERENCE # &&[id number]. SW WILL FOLLOW UP NEEDED
--- NOTE | 2021-12-23 11:45 | NUR ---
ADMINISTERED BREATHING TREATMENT EARLY A PRN DUE TO THE FACT PT IS BEING DISCHARGED SOON.
[2021-12-23] MEDS: ALBUTEROL SULFATE/IPRATROPIU 3 ML SOL IH PRN (12:08)
--- NOTE | 2021-12-23 12:30 | NUR ---
[facility] ARRIVED TO TRANSPORT PT TO HOME, PT BELONGINGS WERE RECONCILED. DISCHARGE PAPERWORK WAS SIGNED THE DAY PRIOR, PT AND SISTER VERBALIZED UNDERSTANDING.
== END 2021-12-23 12:41 | disposition home or self-care (01) | DRG 870 ==
LOC: MED 16:05 → MTU 20:48 → MIC 12-01 15:16 → MTU 12-19 14:35
PROVIDERS: ADMIT Student in an Organized Health Care Education/Training Program; ATTEND Student in an Organized Health Care Education/Training Program
PROC: 5A1955Z Respiratory Ventilation, Greater than 96 Consecutive Hours (ICD-10-PCS; principal; 2021-12-01)
PROC: 06HY33Z Insertion of Infusion Device into Lower Vein, Percutaneous Approach (ICD-10-PCS; 2021-12-01)
PROC: B54BZZA Ultrasonography of Right Lower Extremity Veins, Guidance (ICD-10-PCS; 2021-12-01)
PROC: 0BH17EZ Insertion of Endotracheal Airway into Trachea, Via Natural or Artificial Opening (ICD-10-PCS; 2021-12-01)
PROC: 02HV33Z Insertion of Infusion Device into Superior Vena Cava, Percutaneous Approach (ICD-10-PCS; 2021-12-02)
PROC: B548ZZA Ultrasonography of Superior Vena Cava, Guidance (ICD-10-PCS; 2021-12-02)
PROC: 0W993ZZ Drainage of Right Pleural Cavity, Percutaneous Approach (ICD-10-PCS; 2021-12-10)
PROC: 0B9F8ZX Drainage of Right Lower Lung Lobe, Via Natural or Artificial Opening Endoscopic, Diagnostic (ICD-10-PCS; 2021-12-14)
PROC: 5A09357 Assistance with Respiratory Ventilation, Less than 24 Consecutive Hours, Continuous Positive Airway Pressure (ICD-10-PCS; 2021-12-14)
PROC: 5A0935A Assistance with Respiratory Ventilation, Less than 24 Consecutive Hours, High Flow/Velocity Cannula (ICD-10-PCS; 2021-12-15)
PROC: 5A0935A Assistance with Respiratory Ventilation, Less than 24 Consecutive Hours, High Flow/Velocity Cannula (ICD-10-PCS; 2021-12-16)
PROC: 5A0935A Assistance with Respiratory Ventilation, Less than 24 Consecutive Hours, High Flow/Velocity Cannula (ICD-10-PCS; 2021-12-17)
PROC: 5A0935A Assistance with Respiratory Ventilation, Less than 24 Consecutive Hours, High Flow/Velocity Cannula (ICD-10-PCS; 2021-12-18)
DX: A41.9 Sepsis, unspecified organism (principal); J69.0 Pneumonitis due to inhalation of food and vomit; R65.21 Severe sepsis with septic shock; I21.4 Non-ST elevation (NSTEMI) myocardial infarction; J80 Acute respiratory distress syndrome; I50.43 Acute on chronic combined systolic (congestive) and diastolic (congestive) heart failure; E44.0 Moderate protein-calorie malnutrition; C34.90 Malignant neoplasm of unspecified part of unspecified bronchus or lung; J91.8 Pleural effusion in other conditions classified elsewhere; C41.9 Malignant neoplasm of bone and articular cartilage, unspecified; Z68.1 Body mass index [BMI] 19.9 or less, adult; E03.9 Hypothyroidism, unspecified; I35.1 Nonrheumatic aortic (valve) insufficiency; K80.20 Calculus of gallbladder without cholecystitis without obstruction; I27.20 Pulmonary hypertension, unspecified; K59.00 Constipation, unspecified; Z20.822 Contact with and (suspected) exposure to COVID-19; D64.9 Anemia, unspecified; I11.0 Hypertensive heart disease with heart failure; Z85.118 Personal history of other malignant neoplasm of bronchus and lung; Z79.899 Other long term (current) drug therapy
CPT/HCPCS: 36415; 36600; 71045; 71250; 71275; 73562; 74018; 76604; 76700; 76942; 80048; 80053; 81001; 82607; 82728; 82746; 82803; 82945; 83540; 83625; 83735; 83880; 84100; 84157; 84439; 84443; 84484; 85025; 85045; 85610; 85730; 87040; 87070; 87075; 87081; 87086; 87186; 87205; 89051; 92526; 93005; 93970; 94002; 94003; 94640; 94660; 94667; 97110; 97112; 97116; 97163-GP; 97164; 97530; 99291; C9113; J0696; J1120; J1650; J1940; J2001; J2060; J2270; J2405; J2543; J2704; J2997; J3480; J3490; J7060; Q0092; Q9967